=== PATIENT | female | born 1980 ===

== ENCOUNTER → 2023-10-11 12:53 | Outpatient (BNVA) | payer MEDICARE, SELFPAY | PROVIDERS: Visit Provider Physician Assistant Surgical ==

== ENCOUNTER 2023-11-29 09:28 | Outpatient (AMB) | payer MEDICARE, SELFPAY ==
--- OUTSIDE RECORDS SUMMARY | 2023-11-29 09:30 | XMS_ITS | Continuity of Care Document ---
Author Organization [facility] Address [address], [address] [place] [address]- Care Team Providers Care Electric Refrigerator Preparer Name Role Phone Jaciel WILSON, [place] Primary Care Physician [place] [facility] [place] Date(s): 02/02/22 - 03/04/22 [facility] [place] [facility] [address], [address] [place], [place] [address] Attending Physician: AdmScott diggs Admitting Physician: AdmScott diggs Referring Physician: [id number] Allergies, Adverse Reactions, Alerts Substance Reaction Severity Status Flovent chest pain Active Nuts anaphalaxis Active Immunizations Given and Recorded Vaccine Date Status Refusal Reason influenza virus vaccine, inactivated 1 09/25/21 Gi jennifer influenza virus vaccine, inactivated 04/14/09 Give n SARS-CoV-2 (COVID-19) mRNA BNT-162b2 vac 07/03/21 Recorded SARS-CoV-2 (COVID-19) mRNA-1273 vaccine 09/07/20 R ecorded SARS-CoV-2 (COVID-19) mRNA-1273 vaccine 08/10/20 R ecorded tetanus/diphtheria/pertussis, acel(Tdap) 02/18/17 Given influ virus vac, H1N1, inactive(oldterm) 2 05/06/09 Given Pneumococcal Poly (PPV23) (oldterm) 06/11/07 Given Tet/Diphth/Acel, Pertussis (oldterm) 3 12/25/06 Gi jennifer 1Result Comment: [facility]:[id number] 2Admin Note: Manufactured by: [employer] 3Admin Note: SANOFI PASTEUR Medications Albuterol (Eqv-ProAir HFA) 90 mcg/inh inhalation aerosol 2 puffs, Inhalation, Every 4 hours, PRN NEEDED FOR WHEEZING, # 8.5 Gm, 2 Refills, [facility] #[id number], 16, INHALE 2 PUFFS BY MOUTH EVERY 4 HOURS NEEDED FOR WHEEZING, 163, cm, 06/21/21 8:48:00 EST, Height, 109, kg, 02/01/21 19:07:00 EDT,... Start Date: 07/03/21 Status: Ordered albuterol 0.083% inhalation solution 3 mL = 2.5 mg, Inhalation, Every 6 hours, PRN for wheezing, # 60 each, 1 Refills, Maintenance, 02/26/22 9:27:00 EDT, Solution, [facility] #[id number], Partial fill upon patient request if the prescription is for a schedule II opioid drug., 162.56... Start Date: 02/26/22 Status: Ordered Breo Ellipta 100 mcg-25 mcg/inh inhalation powder 1 puffs, Inhalation, Daily, # 3 each, 3 Refills, 02/16/22 12:14:00 EDT, [facility] #[id number], no substitutuion - brand name necessary, 1 puffs Inhalation Daily, 162.56, cm, 02/02/22 15:09:00 EDT, Height, 112.1, kg, 02/02/22 15:11:00 EDT, Dry We... Start Date: 02/16/22 Status: Ordered cyclobenzaprine 5 mg oral tablet 1 tablet, By Mouth, 3 times a day, PRN NEEDED FOR LEG PAIN, for 14 days, # 42 tablet, 1 Refills,Physician Stop 03/16/22 12:15:00 EDT, 02/16/22 12:15:00 EDT, [facility] #[id number], 162.56, cm, 02/02/22 15:09:00 EDT, Height, 112.1, kg, ... Start Date: 02/16/22 Stop Date: 03/16/22 Status: Ordered EpiPen 2-Gage 0.3 mg injectable kit See Instructions, Intramuscular Once, # 1 pack/packet, 0 Refills, Soft Stop, 07/18/20 15:15:00 EST,[facility] #[id number], 165.5, cm, 05/19/20 10:10:00 EST, Height, 102.1, kg, 09/08/19 15:11:00EST, Dry Weight Start Date: 07/18/20 Status: Ordered escitalopram 10 mg oral tablet 1.5 tablet = 15 mg, By Mouth, Daily at bedtime, dose increase, # 45 tablet, 11 Refills, Maintenance, 11/06/21 15:12:00 EDT, [facility] #[id number], Partial fill upon patient request if the prescription is for a schedule II opioid drug., 162.56, c... Start Date: 11/06/21 Status: Ordered Excedrin By Mouth, Every 6 hours, 0 Refills, Maintenance, 05/19/20 10:13:00 EST Start Date: 05/19/20 Status: Ordered nabumetone 500 mg oral tablet 1 tablet = 500 mg, By Mouth, 2 times a day, as needed for antiinflammatory, # 28 tablet, 1 Refills,Maintenance, 02/16/22 12:16:00 EDT, Tablet, [facility] #[id number], 162.56, cm, 02/02/22 15:09:00 EDT, Height, 112.1, kg, 02/02/22 15:11:00 EDT, D... Start Date: 02/16/22 Stop Date: 03/16/22 Status: Ordered scopolamine 1 mg/72 hr transdermal film, extended release 1 film, Topically, Every 72 hours, # 4 each, 0 Refills, Acute 03/15/22 12:17:00 EDT, 02/16/22 12:17:00 EDT, [facility] #[id number], Partial fill upon patient request if the prescription is for aschedule II opioid drug., 1 film Topically Every 72... 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
--- OUTSIDE RECORDS SUMMARY | 2023-11-29 09:30 | XMS_ITS | Continuity of Care Document ---
Author Organization [facility] Adult Address Unknown Care Team Providers Care Promotions Executive Producer Name Role Phone [place] Grissom MD Primary Care Physician Encounter [facility] [place] Date(s): 05/10/21 - 06/09/21 [facility] Allergies, Adverse Reactions, Alerts Substance Reaction Severity Status Flovent Active Nuts anaphalaxis Active Immunizations Given and Recorded Vaccine Date Status Refusal Reason SARS-CoV-2 (COVID-19) mRNA-1273 vaccine 09/07/20 R ecorded SARS-CoV-2 (COVID-19) mRNA-1273 vaccine 08/10/20 R ecorded tetanus/diphtheria/pertussis, acel(Tdap) 02/18/17 Given influ virus vac, H1N1, inactive(oldterm) 1 05/06/09 Given influenza virus vaccine, inactivated 04/14/09 Give n Pneumococcal Poly (PPV23) (oldterm) 06/11/07 Given Tet/Diphth/Acel, Pertussis (oldterm) 2 12/25/06 Gi jennifer 1Admin Note: Manufactured by: [employer] 2Admin Note: SANOFI PASTEUR Medications albuterol 0.083% inhalation solution 3 mL, Inhalation, Every 6 hours, PRN as needed for wheezing, # 25 each, 5 Refills, Maintenance, 07/20/20 14:16:00 EST, [facility] #[id number], 165.5, cm, 07/19/20 18:29:00 EST, Height, 102.1, kg, 09/08/19 15:11:00 EST, Dry Weight Start Date: 07/20/20 Status: Ordered Breo Ellipta 100 mcg-25 mcg/inh inhalation powder 1 puffs, Inhalation, Daily, # 1 each, 11 Refills, Maintenance, 10/03/20 15:46:00 EDT, Powder, [facility] #[id number], 1 puffs Inhalation Daily, 165.5, cm, 09/20/20 13:58:00 EST, Height, 102.1, kg, 09/08/19 15:11:00 EST, Dry Weight Start Date: 10/03/20 Status: Ordered cyclobenzaprine 5 mg oral tablet 1 tablet, By Mouth, 3 times a day, PRN NEEDED FOR LEG PAIN, # 30 tablet, 1 Refills, Physician Stop 06/13/21 14:06:00 EST, 05/29/21 14:05:00 EST, [facility] #[id number], 163, cm, 05/18/21 10:53:00 EDT, Height, 109, kg, 02/01/21 19:07:00 EDT, . Start Date: 05/29/21 Stop Date: 06/13/21 Status: Ordered EpiPen 2-Gage 0.3 mg injectable kit See Instructions, Intramuscular Once, # 1 pack/packet, 0 Refills, Soft Stop, 07/18/20 15:15:00 EST,[facility] #[id number], 165.5, cm, 05/19/20 10:10:00 EST, Height, 102.1, kg, 09/08/19 15:11:00EST, Dry Weight Start Date: 07/18/20 Status: Ordered Excedrin By Mouth, Every 6 hours, 0 Refills, Maintenance, 05/19/20 10:13:00 EST Start Date: 05/19/20 Status: Ordered Physical Therapy Physical Therapy, See Instructions, # 12 each, Refills 0, Tot. Refills 0, Maintenance, eval lower back pain with sciatica, 05/10/21 16:51:00 EDT, Supply Start Date: 05/10/21 Status: Ordered ProAir HFA 90 mcg/inh inhalation aerosol with adapter 2, puffs, Inhalation, Every 4 hours, PRN, # 8.5 Gm, Refills 11, Tot. Refills 11, Maintenance, 03/30/20 16:16:00 EDT, Aerosol, Route to Pharmacy Electronically, [id number], [facility] #[id number], 165.5, cm, 09/08/19 15:0... 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
--- OUTSIDE RECORDS SUMMARY | 2023-11-29 09:30 | XMS_ITS | Continuity of Care Document ---
Author Organization [facility] Adult Address [address] [place] [address]- Care Team Providers Care Astrochemist Name Role Phone Jaciel WILSON, [place] Primary Care Physician [place] [facility] [place] Date(s): 03/04/23 - 04/03/23 [facility] [address] [place] [address]- Allergies, Adverse Reactions, Alerts Substance Reaction Severity Status Flovent chest pain Active Nuts anaphalaxis Active Immunizations Given and Recorded Vaccine Date Status Refusal Reason influenza virus vaccine, inactivated 07/02/22 Gustavo rded influenza virus vaccine, inactivated 1 09/25/21 Gi jennifer influenza virus vaccine, inactivated 04/14/09 Give n [id number] 12y+ bivalent booster vax 07/02/22 Recorded SARS-CoV-2 (COVID-19) mRNA BNT-162b2 vac 07/03/21 Recorded SARS-CoV-2 (COVID-19) mRNA-1273 vaccine 09/07/20 R ecorded SARS-CoV-2 (COVID-19) mRNA-1273 vaccine 08/10/20 R ecorded tetanus/diphtheria/pertussis, acel(Tdap) 02/18/17 Given influ virus vac, H1N1, inactive(oldterm) 2 05/06/09 Given Pneumococcal Poly (PPV23) (oldterm) 06/11/07 Given Tet/Diphth/Acel, Pertussis (oldterm) 3 12/25/06 Gi jennifer 1Result Comment: [facility]:[id number] 2Admin Note: Manufactured by: [employer] 3Admin Note: SANOFI PASTEUR Medications acetaminophen 325 mg oral tablet 650 mg, By Mouth, Every 6 hours, May take OTC not to exceed 3000 mg/day, Refills 0, Maintenance, 01/12/23 9:15:00 EDT, Partial fill upon patient request if the prescription is for a schedule II opioid drug. Start Date: 01/12/23 Status: Ordered Albuterol (Eqv-ProAir HFA) 90 mcg/inh inhalation aerosol 2 puffs, Inhalation, Every 4 hours, PRN NEEDED FOR WHEEZING, # 8.5 Gm, 5 Refills, 03/12/23 10:03:00 EDT, [facility] #[id number], 16, 2 puffs Inhalation Every 4 hours,PRN: NEEDED FOR WHEEZING, 162, cm, 01/13/23 7:02:00 EDT, Height, 115.9, kg,... Start Date: 03/12/23 Status: Ordered Aspirin Tablet 325 mg, By Mouth, 2 times a day, Refills 0, Maintenance, 01/12/23 9:15:00 EDT, Partial fill upon patient request if the prescription is for a schedule II opioid drug. Start Date: 01/12/23 Status: Ordered Breo Ellipta 100 mcg-25 mcg/inh inhalation powder 1 puffs, Inhalation, Daily, # 180 each, 3 Refills, Maintenance, 01/28/23 9:16:00 EDT, [facility] #[id number], 90, INHALE 1 PUFF BY MOUTH DAILY, 162, cm, 01/13/23 7:02:00 EDT, Height, 115.9, kg, 01/11/23 12:29:00 EDT, Dry Weight Start Date: 01/28/23 Status: Ordered Breo Ellipta 100 mcg-25 mcg/inh inhalation powder 1 puffs, Inhalation, Daily, # 3 each, 3 Refills, Maintenance, 03/22/23 13:52:00 EDT, [facility] #72911, 1 puffs Inhalation Daily, 162, cm, 01/13/23 7:02:00 EDT, Height, 115.9, kg, 01/11/23 12:29:00 EDT, Dry Weight Start Date: 03/22/23 Status: Ordered Colace Capsule 100 mg, 1, capsule, By Mouth, 2 times a day, Refills 0, Maintenance, 01/12/23 9:15:00 EDT, Partial fill upon patient request if the prescription is for a schedule II opioid drug. Start Date: 01/12/23 Status: Ordered cyclobenzaprine 5 mg oral tablet 1 tablet = 5 mg, By Mouth, PRN, 0 Refills, Maintenance, 09/26/22 14:00:00 EDT, Partial fill upon patient request if the prescription is for a schedule II opioid drug. Start Date: 09/26/22 Status: Ordered EpiPen 2-Gage 0.3 mg injectable kit See Instructions, Intramuscular Once, # 1 pack/packet, 0 Refills, Soft Stop, 07/18/20 15:15:00 EST,[facility] #[id number], 165.5, cm, 05/19/20 10:10:00 EST, Height, 102.1, kg, 09/08/19 15:11:00EST, Dry Weight Start Date: 07/18/20 Status: Ordered MiraLax Powder 1 pack/packet = 17 Gm, By Mouth, Daily, PRN Constipation, 0 Refills, Maintenance, 01/12/23 9:15:00 EDT, Powder, Partial fill upon patient request if the prescription is for a schedule II opioid drug. Start Date: 01/12/23 Status: Ordered pantoprazole 40 mg oral delayed release tablet = 40 mg, By Mouth, Daily, 0 Refills, Maintenance, 01/12/23 9:15:00 EDT, EC Tablet Start Date: 01/12/23 Status: Ordered senna 187 mg oral tablet 1 tablet = 8.6 mg, By Mouth, Daily at bedtime, PRN as needed for constipation, 0 Refills, Maintenance, 01/12/23 9:15:00 EDT, Tablet, Partial fill upon patient request if the prescription is for a schedule II opioid drug. Start Date: 01/12/23 Status: Ordered Problem List Condition Confirmation Course Effective Dates Status H ealth Status Informant ASTHMA Confirmed Active Morbid obesity with BMI of 40.0-44.9, adult Confirmed Active Urinary incontinence Confirmed Active FH: Diabetes mellitus 1 Confirmed Active Lateral femoral cutaneous entrapment syndrome Confirmed Active Obstructive sleep apnea Confirmed Active Osteoarthritis of left hip (candidate for THR) Confirmed Active Severe obesity Confirmed Active 1both parents Social History Social History Type Response Smoking Status Former smoker, quit more than 30 days ago entered on: 02/01/21 Sex Patient Care team information Care Team Personnel Name: [place] Grissom MD Position: S Physician - Primary Care Member Role: PCP Address: Address: [address] [place] [address]- Care Team Related Persons Name: ANTWON GARCIA Address: home [address] [place] [address]
--- OUTSIDE RECORDS SUMMARY | 2023-11-29 09:30 | XMS_ITS | Continuity of Care Document ---
Author Organization [facility] Address [address] [place] [address]- Care Team Providers Care Search Engineer Name Role Phone [place] Grissom MD Primary Care Physician Encounter [facility] [place] Date(s): 07/19/20 - 08/18/20 [facility] [address] [place] [address]- Attending Physician: Scott Murcia Admitting Physician: Scott Murcia Referring Physician: AdmtrScott Allergies, Adverse Reactions, Alerts Substance Reaction Severity Status Flovent Active Nuts anaphalaxis Active Immunizations Given and Recorded Vaccine Date Status Refusal Reason tetanus/diphtheria/pertussis, acel(Tdap) 02/18/17 Given influ virus vac, H1N1, inactive(oldterm) 1 05/06/09 Given influenza virus vaccine, inactivated 04/14/09 Give n Pneumococcal Poly (PPV23) (oldterm) 06/11/07 Given Tet/Diphth/Acel, Pertussis (oldterm) 2 12/25/06 Gi jennifer 1Admin Note: Manufactured by: [employer] 2Admin Note: SANOFI PASTEUR Medications albuterol 0.083% inhalation solution 3 mL, Inhalation, Every 6 hours, PRN as needed for wheezing, # 25 each, 5 Refills, Maintenance, 07/20/20 14:16:00 EST, [facility] #[id number], 165.5, cm, 07/19/20 18:29:00 EST, Height, 102.1, kg, 09/08/19 15:11:00 EST, Dry Weight Start Date: 07/20/20 Status: Ordered Breo Ellipta 100 mcg-25 mcg/inh inhalation powder 1 puffs, Inhalation, Daily, # 1 each, 11 Refills, Maintenance, 09/25/19 15:00:00 EDT, Powder, [facility] #[id number], 1 puffs Inhalation Daily, 165.5, cm, 09/08/19 15:08:00 EST, Height, 102.1, kg, 09/08/19 15:11:00 EST, Dry Weight Start Date: 09/25/19 Status: Ordered cyclobenzaprine 5 mg oral tablet 1 tablet = 5 mg, By Mouth, 3 times a day, PRN Other, PRN for leg pain, # 30 tablet, 5 Refills, Maintenance, 03/30/20 16:16:00 EDT, [facility] #11754, 165.5, cm, 09/08/19 15:08:00 EST, Height, 102.1, kg, 09/08/19 15:11:00 EST, Dry Weight Start Date: 03/30/20 Status: Ordered EpiPen 2-Gage 0.3 mg injectable kit See Instructions, Intramuscular Once, # 1 pack/packet, 0 Refills, Soft Stop, 07/18/20 15:15:00 EST,[facility] #[id number], 165.5, cm, 05/19/20 10:10:00 EST, Height, 102.1, kg, 09/08/19 15:11:00EST, Dry Weight Start Date: 07/18/20 Status: Ordered Excedrin By Mouth, Every 6 hours, 0 Refills, Maintenance, 05/19/20 10:13:00 EST Start Date: 05/19/20 Status: Ordered Mirena 52 mg intrauteral device 1 each = 52 mg, Vaginally, Once, # 1 each, 0 Refills, Soft Stop, 11/19/13 16:16:54, 1 each Vaginally Once Start Date: 11/19/13 Status: Ordered ProAir HFA 90 mcg/inh inhalation aerosol with adapter 2, puffs, Inhalation, Every 4 hours, PRN, # 8.5 Gm, Refills 11, Tot. Refills 11, Maintenance, 03/30/20 16:16:00 EDT, Aerosol, Route to Pharmacy Electronically, [id number], [facility] #[id number], 165.5, cm, 09/08/19 15:0... Start Date: 03/30/20 Status: Ordered scopolamine 1.5 mg transdermal film, extended release 1 patch, Topically, Every 72 hours, PRN for motion sickness, # 4 each, 1 Refills, Maintenance, 11/21/18 8:46:33 EDT, Patch Start Date: 11/21/18 Status: Ordered traZODone 50 mg oral tablet 50 mg, 1, tablet, By Mouth, Daily at bedtime, # 30 tablet, Refills 11, Tot. 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
--- OUTSIDE RECORDS SUMMARY | 2023-11-29 09:30 | XMS_ITS | Continuity of Care Document ---
Author Organization [facility] ter Address [address] [place] [address]- Care Team Providers Care Paintings Restorer Name Role Phone [place] Grissom MD Primary Care Physician [phone] Encounter [facility] [place] Date(s): 01/11/23 - 02/10/[address] [address]- Attending Physician: Not on Staff, Attending MD Admitting Physician: Not on Staff, Admitting MD Referring Physician: Not on Staff, Referring MD Allergies, Adverse Reactions, Alerts Substance Reaction Severity Status Flovent chest pain Active Nuts anaphalaxis Active Immunizations Given and Recorded Vaccine Date Status Refusal Reason influenza virus vaccine, inactivated 07/02/22 Gustavo rded influenza virus vaccine, inactivated 1 09/25/21 Gi jennifer influenza virus vaccine, inactivated 04/14/09 Give n [id number] 12y+ bivalent booster vax 07/02/22 Recorded SARS-CoV-2 (COVID-19) mRNA BNT-162b2 vac 07/03/21 Recorded SARS-CoV-2 (COVID-19) mRNA-1273 vaccine 09/07/20 R ecorded SARS-CoV-2 (COVID-19) mRNA-1273 vaccine 08/10/20 R ecorded tetanus/diphtheria/pertussis, acel(Tdap) 02/18/17 Given influ virus vac, H1N1, inactive(oldterm) 2 05/06/09 Given Pneumococcal Poly (PPV23) (oldterm) 06/11/07 Given Tet/Diphth/Acel, Pertussis (oldterm) 3 12/25/06 Gi jennifer 1Result Comment: [facility]:[id number] 2Admin Note: Manufactured by: [employer]. 3Admin Note: SANOFI PASTEUR Medications acetaminophen 325 [...] FOR WHEEZING, # 8.5 Gm, 5 Refills, 12/25/22 6:12:00 EDT, [facility] #[id number], 16, 2 puffs Inhalation Every 4 hours,PRN: NEEDED FOR WHEEZING, 162.56, cm, 09/26/22 13:58:00 EDT, Height, 112.1,... Start Date: 12/25/22 Status: Ordered Aspirin Tablet 325 mg, By Mouth, 2 times a day, Refills 0, Maintenance, 01/12/23 9:15:00 EDT, Partial fill upon patient request if the prescription is for a schedule II opioid drug. Start Date: 01/12/23 Status: Ordered Breo Ellipta 100 mcg-25 mcg/inh inhalation powder 1 puffs, Inhalation, Daily, # 180 each, 3 Refills, Maintenance, 01/28/23 9:16:00 EDT, [facility] #[id number], 90, INHALE 1 PUFF BY MOUTH DAILY, 162, cm, 01/13/23 7:02:00 EDT, Height, 115.9, kg, 01/11/23 12:29:00 EDT, Dry Weight Start Date: 01/28/23 Status: Ordered Breo Ellipta 100 mcg-25 mcg/inh inhalation powder 1 puffs, Inhalation, Daily, # 180 each, 3 Refills, Maintenance, 01/28/23 9:16:00 EDT, [facility] #[id number], 90, INHALE 1 PUFF BY MOUTH DAILY, 162, cm, 01/13/23 7:02:00 EDT, Height, 115.9, kg, 01/11/23 12:29:00 EDT, Dry Weight Start Date: 01/28/23 Status: Ordered Colace Capsule 100 mg, 1, [...] pack/packet, 0 Refills, Soft Stop, 07/18/20 15:15:00 EST,[facility] #[id number], 165.5, cm, 05/19/20 10:10:00 EST, Height, 102.1, [...] Team Personnel Name: [place] Grissom MD Position: [facility] Physician - Primary Care Member Role: PCP Address: Address: [address] [place] [address]- Care Team Related Persons Name: ANTWON GARCIA Address: [address] [place] [address]
--- OUTSIDE RECORDS SUMMARY | 2023-11-29 09:30 | XMS_ITS | Continuity of Care Document ---
Author Organization [facility] Address [address] [place] [address]- Care Team Providers Care Automatic Toe Laster Name Role Phone [place] Grissom MD Primary Care Physician [phone] Encounter [facility] Date(s): 12/11/22 - 01/10/23 [facility] [address] [place], [place] [address] Attending Physician: Scott Murcia Admitting Physician: Scott Murcia Referring Physician: AdmtrScott Allergies, Adverse Reactions, Alerts Substance Reaction Severity Status Flovent chest pain Active Nuts anaphalaxis Active Immunizations Given and Recorded Vaccine Date Status Refusal Reason influenza virus vaccine, inactivated 07/02/22 Gustavo rded influenza virus vaccine, inactivated 1 09/25/21 Gi jennifer influenza virus vaccine, inactivated 04/14/09 Give n [id number] 12y+ bivalent booster vax 07/02/22 Recorded SARS-CoV-2 (COVID-19) mRNA BNT-162b2 vac 07/03/21 Recorded SARS-CoV-2 (COVID-19) mRNA-1273 vaccine 09/07/20 R ecorded SARS-CoV-2 (COVID-19) mRNA-1273 vaccine 08/10/20 R ecorded tetanus/diphtheria/pertussis, acel(Tdap) 02/18/17 Given influ virus vac, H1N1, inactive(oldterm) 2 05/06/09 Given Pneumococcal Poly (PPV23) (oldterm) 06/11/07 Given Tet/Diphth/Acel, Pertussis (oldterm) 3 12/25/06 Gi jennifer 1Result Comment: [facility]:[id number] 2Admin Note: Manufactured by: [employer] 3Admin Note: SANOFI PASTEUR Medications Albuterol (Eqv-ProAir HFA) 90 mcg/inh inhalation aerosol 2 puffs, Inhalation, Every 4 hours, PRN NEEDED FOR WHEEZING, # 8.5 Gm, 5 Refills, 12/25/22 6:12:00 EDT, [facility] #[id number], 16, 2 puffs Inhalation Every 4 hours,PRN: NEEDED FOR WHEEZING, 162.56, cm, 09/26/22 13:58:00 EDT, Height, 112.1,... Start Date: 12/25/22 Status: Ordered Breo Ellipta 100 mcg-25 mcg/inh inhalation powder 1 puffs, Inhalation, Daily, # 3 each, 3 Refills, 02/16/22 12:14:00 EDT, [facility] #[id number], no substitutuion - brand name necessary, 1 [...] pack/packet, 0 Refills, Soft Stop, 07/18/20 15:15:00 EST,[facility] #14612, 165.5, cm, 05/19/20 10:10:00 EST, Height, 102.1, kg, 09/08/19 15:11:00EST, Dry Weight Start Date: 07/18/20 Status: Ordered Vitamin B12 0 Refills, Maintenance, 02/18/17 8:54:57 Start Date: 02/18/17 Status: Ordered Problem List Condition Confirmation Course [...] Primary Care Member Role: PCP Address: Address: [address] [place] [address]- Care Team Related Persons Name: ANTWON GARCIA Address: home [address] [place] [address]
--- OUTSIDE RECORDS SUMMARY | 2023-11-29 09:30 | XMS_ITS | Continuity of Care Document ---
Author Organization [facility] Address Unknown Care Team Providers Care Manager Transition Name Role Phone Boston Grissom MD Primary Care Physician Encounter [facility] [place] Date(s): 11/21/21 - 12/21/21 [facility] Allergies, Adverse Reactions, Alerts Substance Reaction [...] (oldterm) 3 12/25/06 Gi jennifer 1Result Comment: [facility]:[id number] 2Admin Note: Manufactured by: [employer] 3Admin Note: SANOFI PASTEUR Medications Albuterol (Eqv-ProAir HFA) 90 mcg/inh inhalation aerosol 2 puffs, Inhalation, Every 4 hours, PRN NEEDED FOR WHEEZING, # 8.5 Gm, 2 Refills, [facility] #[id number], 16, INHALE 2 PUFFS BY MOUTH EVERY 4 HOURS NEEDED FOR WHEEZING, 163, cm, 06/21/21 8:48:00 EST, Height, 109, kg, 02/01/21 19:07:00 EDT,... Start Date: 07/03/21 Status: Ordered Bactrim DS 800 mg-160 mg oral tablet 1 tablet, By Mouth, 2 times a day, for 3 days, # 6 each, 0 Refills, Acute 12/24/21 8:54:00 EDT, 12/21/21 8:54:00 EDT, Tablet, [facility] #[id number], Partial fill upon patient request if the prescription is for a schedule II opioid drug., 1 table... Start Date: 12/21/21 Stop Date: 12/24/21 Status: Ordered Breo Ellipta 100 mcg-25 mcg/inh inhalation powder 1 puffs, Inhalation, Daily, # 3 each, 2 Refills, 10/20/21 9:30:00 EDT, [facility] #[id number],1 puffs Inhalation Daily, 162.56, cm, 10/09/21 13:19:00 EDT, Height, 109.5, kg, 10/03/21 13:50:00 EDT, Dry Weight Start Date: 10/20/21 Status: Ordered EpiPen 2-Gage 0.3 mg injectable kit See Instructions, Intramuscular Once, # 1 pack/packet, 0 Refills, Soft Stop, 07/18/20 15:15:00 EST,[facility] #[id number], 165.5, cm, 05/19/20 10:10:00 EST, Height, 102.1, kg, 09/08/19 15:11:00EST, Dry Weight Start Date: 07/18/20 Status: Ordered escitalopram 10 mg oral tablet 1.5 tablet = 15 mg, By Mouth, Daily at bedtime, dose increase, # 45 tablet, 11 Refills, Maintenance, 11/06/21 15:12:00 EDT, [facility] #[id number], Partial fill upon patient request if the prescription is for a schedule II opioid drug., 162.56, c... Start Date: 11/06/21 Status: Ordered Excedrin By Mouth, Every 6 hours, 0 Refills, Maintenance, 05/19/20 10:13:00 EST Start Date: 05/19/20 Status: Ordered Vitamin B12 0 Refills, Maintenance, [...]
--- OUTSIDE RECORDS SUMMARY | 2023-11-29 09:30 | XMS_ITS | Continuity of Care Document ---
Author Organization [facility] Address [address] [place] [address]- Care Team Providers Care Pharmaceutical Physician Name Role Phone Boston Grissom MD Primary Care Physician [phone] [place] [facility] [place]): [place] 08/27/[address] [facility] [address] [place] [address]- Encounter Diagnosis Trochanteric bursitis of left hip(Discharge Diagnosis) - 08/20/22 Attending Physician: Boston Grissom MD Allergies, Adverse Reactions, Alerts Substance Reaction [...] (oldterm) 3 12/25/06 Gi jennifer 1Result Comment: [facility]:[id number] 2Admin Note: Manufactured by: [employer] 3Admin Note: SANOFI PASTEUR Medications Albuterol (Eqv-ProAir HFA) 90 mcg/inh inhalation aerosol 2 puffs, Inhalation, Every 4 hours, PRN NEEDED FOR WHEEZING, # 8.5 Gm, 5 Refills, 04/25/22 9:56:00 EDT, [facility] #[id number], 16, 2 puffs Inhalation Every 4 hours,PRN: NEEDED FOR WHEEZING, 162.56, cm, 04/19/22 9:56:00 EDT, Height, 112.1, k... Start Date: 04/25/22 Status: Ordered albuterol 0.083% inhalation solution 3 mL = 2.5 mg, Inhalation, Every 6 hours, PRN for wheezing, # 60 each, 1 Refills, Maintenance, 02/26/22 9:27:00 EDT, Solution, [facility] #[id number], Partial fill upon patient request if the prescription is for a schedule II opioid drug., 162.56... Start Date: 02/26/22 Status: Ordered Breo Ellipta 100 mcg-25 mcg/inh inhalation powder 1 puffs, Inhalation, Daily, # 3 each, 3 Refills, 02/16/22 12:14:00 EDT, [facility] #[id number], no substitutuion - brand name necessary, 1 puffs Inhalation Daily, 162.56, cm, 02/02/22 15:09:00 EDT, Height, 112.1, kg, 02/02/22 15:11:00 EDT, Dry We... Start Date: 02/16/22 Status: Ordered EpiPen 2-Gage 0.3 mg injectable kit See Instructions, Intramuscular Once, # 1 pack/packet, 0 Refills, Soft Stop, 07/18/20 15:15:00 EST[facility] #[id number], 165.5, cm, 05/19/20 10:10:00 EST, Height, 102.1, kg, 09/08/19 15:11:00EST, Dry Weight Start Date: 07/18/20 Status: Ordered escitalopram 10 mg oral tablet 1.5 tablet = 15 mg, By Mouth, Daily at bedtime, dose increase, # 45 tablet, 11 Refills, Maintenance, 11/06/21 15:12:00 EDT, [facility] #[id number], Partial fill upon patient request if the [...] tablet, 1 Refills,Maintenance, 02/16/22 12:16:00 EDT, Tablet[id number], 162.56, cm, 02/02/22 15:09:00 EDT, Height, 112.1, kg, 02/02/22 15:11:00 EDT, D... 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 Obstructive sleep apnea Confirmed Active Severe obesity Confirmed Active 1both parents Diagnosis Diagnosis Type Effective Dates Health Status Clinical Service Informant Trochanteric bursitis of left hip Discharge Diagnosis 08/20/22 Social History Social History Type Response Smoking Status Former smoker, quit more than 30 days ago entered on: 02/01/21 Sex Patient Care team information Care Team Personnel Name: Boston Grissom MD Position: [facility] Primary Care Physician Member Role: PCP Address: Address: [address] [place] [address]- Care Team Related Persons Name: ANTWON GARCIA Address: home [address] [place] [address]
--- OUTSIDE RECORDS SUMMARY | 2023-11-29 09:30 | XMS_ITS | Continuity of Care Document ---
Author Organization [facility] Address [address] [place] [address]- Care Team Providers Care Marble Mechanic Helper Name Role Phone Jaciel WILSON, [place] Primary Care Physician Encounter [facility] [place] Date(s): 03/04/23 - 04/03/23 [facility] [address] [place] [address]- Allergies, Adverse Reactions, Alerts Substance Reaction Severity Status Flovent chest pain Active Nuts anaphalaxis Active Immunizations Given and Recorded Vaccine Date Status Refusal Reason influenza virus vaccine, inactivated 07/02/22 Gustavo rded influenza virus vaccine, inactivated 1 09/25/21 Gi jennifer influenza virus vaccine, inactivated 04/14/09 Give n [id number] 12y+ bivalent booster vax 07/02/22 Recorded SARS-CoV-2 (COVID-19) mRNA BNT-162b2 vac 07/03/21 Recorded SARS-CoV-2 (COVID-19) mRNA-1273 vaccine 09/07/20 R ecorded SARS-CoV-2 (COVID-19) mRNA-1273 vaccine 08/10/20 R ecorded tetanus/diphtheria/pertussis, acel(Tdap) 02/18/17 Given influ virus vac, H1N1, inactive(oldterm) 2 05/06/09 Given Pneumococcal Poly (PPV23) (oldterm) 06/11/07 Given Tet/Diphth/Acel, Pertussis (oldterm) 3 12/25/06 Gi jennifer 1Result Comment: [facility]:[id number] 2Admin Note: Manufactured by: [employer] 3Admin Note: SANOFI PASTEUR Medications acetaminophen [...] 8.5 Gm, 5 Refills, 03/12/23 10:03:00 EDT, [facility] #[id number], 16, 2 puffs Inhalation Every 4 hours,PRN: [...] each, 3 Refills, Maintenance, 01/28/23 9:16:00 EDT, [facility] #[id number], 90, INHALE 1 PUFF BY MOUTH DAILY, 162, cm, 01/13/23 7:02:00 EDT, Height, 115.9, kg, 01/11/23 12:29:00 EDT, Dry Weight Start Date: 01/28/23 Status: Ordered Breo Ellipta 100 mcg-25 mcg/inh inhalation powder 1 puffs, Inhalation, Daily, # 3 each, 3 Refills, Maintenance, 03/22/23 13:52:00 EDT, [facility] #[id number], 1 puffs Inhalation Daily, 162, cm, 01/13/23 [...] pack/packet, 0 Refills, Soft Stop, 07/18/20 15:15:00 EST,[facility] #[id number], 165.5, cm, 05/19/20 10:10:00 EST, Height, 102.1, [...] Primary Care Member Role: PCP Address: Address: [address] [place] [address]- Care Team Related Persons Name: ANTWON GARCIA Address: [address] [place] [address]
--- OUTSIDE RECORDS SUMMARY | 2023-11-29 09:30 | XMS_ITS | Continuity of Care Document ---
Author Organization [facility] Address [address] [place] [address]- Care Team Providers Care Account Manager Education Name Role Phone Boston Grissom MD Primary Care Physician Encounter 01/14/23 - 01/18/23 [facility] [address] [place] [address]- Discharge Disposition: [facility] Allergies, Adverse Reactions, Alerts Substance Reaction Severity Status Flovent chest pain Active Nuts anaphalaxis Active Immunizations Given and Recorded Vaccine Date Status Refusal Reason influenza virus vaccine, inactivated 07/02/22 Gustavo rded influenza virus vaccine, inactivated 1 09/25/21 Gi jennifer influenza virus vaccine, inactivated 04/14/09 Give n [id number] 12y+ bivalent booster vax 07/02/22 Recorded SARS-CoV-2 (COVID-19) mRNA BNT-162b2 vac 07/03/21 Recorded SARS-CoV-2 (COVID-19) mRNA-1273 vaccine 09/07/20 R ecorded SARS-CoV-2 (COVID-19) mRNA-1273 vaccine 08/10/20 R ecorded tetanus/diphtheria/pertussis, acel(Tdap) 02/18/17 Given influ virus vac, H1N1, inactive(oldterm) 2 05/06/09 Given Pneumococcal Poly (PPV23) (oldterm) 06/11/07 Given Tet/Diphth/Acel, Pertussis (oldterm) 3 12/25/06 Gi jennifer 1Result Comment: [facility]:89750-510-15 2Admin Note: Manufactured by: [employer] 3Admin Note: SANOFI PASTEUR Medications acetaminophen [...] 8.5 Gm, 5 Refills, 12/25/22 6:12:00 EDT, [facility] #[id number], 16, 2 puffs Inhalation Every 4 hours,PRN: [...] 3 each, 3 Refills, 02/16/22 12:14:00 EDT, [facility] #[id number], no substitutuion - brand name necessary, 1 puffs Inhalation Daily, 162.56, cm, 02/02/22 15:09:00 EDT, Height, 112.1, kg, 02/02/22 15:11:00 EDT, Dry We... Start Date: 02/16/22 Status: Ordered Colace Capsule 100 mg, 1, [...] pack/packet, 0 Refills, Soft Stop, 07/18/20 15:15:00 EST[id number], 165.5, cm, 05/19/20 10:10:00 EST, Height, 102.1, kg, 09/08/19 15:11:00EST, Dry Weight Start Date: 07/18/20 Status: Ordered MiraLax Powder 1 pack/packet = 17 Gm, By Mouth, Daily, PRN Constipation, 0 Refills, Maintenance, 01/12/23 9:15:00 EDT, Powder, Partial fill upon patient request if the prescription is for a schedule II opioid drug. Start Date: 01/12/23 Status: Ordered oxyCODONE 5 mg oral tablet See Instructions, PRN, Take 1-2 tablets By Mouth Every 4 hours, # 84 tablet, Refills 0, Tot. Refills 0, Acute 01/19/23 8:55:00 EDT, Pain , Severe, 01/12/23 8:55:00 EDT, Instructions Replace Required Details, Route to Pharmacy Electronically, [facility]... Start Date: 01/12/23 Stop Date: 01/19/23 Status: Ordered pantoprazole 40 mg oral delayed [...] opioid drug. Start Date: 01/12/23 Status: Ordered traMADol 50 mg oral tablet See Instructions, PRN Pain , Mild, Take 1-2 tablets By Mouth Every 6 hours not to exceed 400 mg/day, # 56 tablet, 0 Refills, Acute 01/19/23 8:55:00 EDT, 01/12/23 8:54:00 EDT, Tablet, [facility], Partial fill upon patient request if th... Start Date: 01/12/23 Stop Date: 01/19/23 Status: Ordered Problem List Condition Confirmation Course [...] Team Personnel Name: Boston Grissom MD Position: [facility] Physician - Primary Care Member Role: PCP Address: Address: [address] [place] [address]- Care Team Related Persons Name: ANTWON GARCIA Address: home [address] [place] [address]
--- OUTSIDE RECORDS SUMMARY | 2023-11-29 09:30 | XMS_ITS | Continuity of Care Document ---
Author Organization [facility] Adult Address Unknown Care Team Providers Care Apprentice Plant Attendant Name Role Phone Boston Grissom MD Primary Care Physician [phone] Encounter [facility] [place] Date(s): 09/25/21 - 10/02/21 [facility] Encounter Diagnosis Annual physical exam(Discharge Diagnosis) - 09/27/21 ASTHMA(Discharge Diagnosis) - 09/27/21 Severe obesity(Discharge Diagnosis) - 09/27/21 Attending Physician: Boston Grissom MD Allergies, Adverse [...] (oldterm) 3 12/25/06 Gi jennifer 1Result Comment: [facility]:[id number] 2Admin Note: Manufactured by: [employer] 3Admin Note: SANOFI PASTEUR Medications Albuterol (Eqv-ProAir HFA) 90 mcg/inh inhalation aerosol 2 puffs, Inhalation, Every 4 hours, PRN NEEDED FOR WHEEZING, # 8.5 Gm, 2 Refills, [facility] #[id number], 16, INHALE 2 PUFFS BY MOUTH EVERY 4 HOURS NEEDED FOR WHEEZING, 163, cm, 06/21/21 8:48:00 EST, Height, 109, kg, 02/01/21 19:07:00 EDT,... Start Date: 07/03/21 Status: Ordered Breo Ellipta 100 mcg-25 mcg/inh inhalation powder 1 puffs, Inhalation, Daily, # 1 each, 11 Refills, Maintenance, 10/03/20 15:46:00 EDT, Powder, [facility] #[id number], 1 puffs Inhalation Daily, 165.5, cm, 09/20/20 13:58:00 EST, Height, 102.1, kg, 09/08/19 15:11:00 EST, Dry Weight Start Date: 10/03/20 Status: Ordered EpiPen 2-Gage 0.3 mg injectable kit See Instructions, Intramuscular Once, # 1 pack/packet, 0 Refills, Soft Stop, 07/18/20 15:15:00 EST,[facility] #[id number], 165.5, cm, 05/19/20 10:10:00 EST, Height, 102.1, kg, 09/08/19 15:11:00EST, Dry Weight Start Date: 07/18/20 Status: Ordered escitalopram 10 mg oral tablet 1 tablet = 10 mg, By Mouth, Daily at bedtime, # 30 tablet, 11 Refills, Maintenance, 09/25/21 14:47:00 EDT, [facility] #[id number], Partial fill upon patient request if the prescription is for a schedule II opioid drug., 163, cm, 09/25/21 14:10:00... Start Date: 09/25/21 Status: Ordered Excedrin By Mouth, Every 6 hours, 0 Refills, Maintenance, 05/19/20 10:13:00 EST Start Date: 05/19/20 Status: Ordered NuLYTELY with Flavor Packs oral powder for reconstitution 240 mL, By Mouth, Every 10 minutes, # 1 each, 0 Refills, Maintenance, 10/02/21 11:08:00 EDT, REC Powder, [facility] #[id number], Partial fill upon patient request if the prescription is for a schedule II opioid drug., 240 mL By Mouth Every 10 min... Start Date: 10/02/21 Status: Ordered Physical Therapy Physical Therapy, See Instructions, # 12 each, Refills 0, Tot. Refills 0, Maintenance, eval lower back pain with sciatica, 05/10/21 16:51:00 EDT, Supply Start Date: 05/10/21 Status: Ordered Plenvu oral powder for reconstitution See Instructions, Complete on day before the procedure per instructions, # 1,000 mL, 0 Refills, Maintenance, 08/25/21 15:50:00 EST, [facility] #[id number], Partial fill upon patient request if the prescription is for a schedule II opioid drug., C... Start Date: 08/25/21 Status: Ordered Vitamin B12 0 Refills, Maintenance, 02/18/17 8:54:57 Start Date: 02/18/17 Status: Ordered Problem List Condition Effective Dates Status Health Status Inform ant ASTHMA(Confirmed) Active Morbid obesity with BMI of 4 0.0-44.9, adult(Confirmed) Active Urinary incontinence(Confirmed) Active FH: Diabetes mellitus(Confirmed) 1 Active Lateral femoral cutaneous en trapment syndrome(Confirmed) Active Obstructive sleep apnea(Confirmed) Active Severe obesity(Confirmed) Active 1both parents Diagnosis Diagnosis Type Effective Dates Health Status Cl inical Service Informant Annual physical exam Discharge Diagnosis 09/27/21 ASTHMA Discharge Diagnosis 09/27/21 Severe obesity Discharge Diagnosis 09/27/21 Vital Signs Most recent to oldest [Reference Range]: 1 Height 163 cm (09/25/21 2:10 PM) Weight 108.8 kg (09/25/21 2:10 PM) Oxygen Saturation [94-100 %] 97 % (09/25/21 2:10 PM) Pulse Rate [55-90 bpm] 83 bpm (09/25/21 2:10 PM) Body Mass Index [18.5-24.99] 40.95 *>HHI* (09/25/21 2:10 PM) Blood Pressure [90-138/55-84 mm Hg] 116/ 68mm Hg (09/25/21 2:10 PM) Blood pressure sites Arm, left (09/25/21 2:10 PM) Social History Social History Type Response Smoking Status Former smoker, quit more than 30 days ago entered on: 02/01/21 Sex
--- OUTSIDE RECORDS SUMMARY | 2023-11-29 09:30 | XMS_ITS | Continuity of Care Document ---
Author Organization [facility] Address [address] [place] [address]- Care Team Providers Care Necktie Centralizing Machine Operator Name Role Phone Boston Grissom MD Primary Care Physician [phone] Encounter [facility] [place] Date(s): 07/03/23 - 08/02/23 [facility] [address] [place] [address]- Attending Physician: Alexis Michele Referring Physician: Boston Grissom MD Allergies, Adverse Reactions, Alerts Substance Reaction Severity Status Flovent chest pain Active Nuts anaphalaxis Active Immunizations Given and Recorded Vaccine Date Status Refusal Reason influenza virus vaccine, inactivated 07/02/22 Gustavo rded influenza virus vaccine, inactivated 1 09/25/21 Gi jennifer influenza virus vaccine, inactivated 04/14/09 Give n [id number] 12y+ bivalent booster vax 07/02/22 Recorded SARS-CoV-2 (COVID-19) mRNA BNT-162b2 vac 07/03/21 Recorded SARS-CoV-2 (COVID-19) mRNA-1273 vaccine 09/07/20 R ecorded SARS-CoV-2 (COVID-19) mRNA-1273 vaccine 08/10/20 R ecorded tetanus/diphtheria/pertussis, acel(Tdap) 02/18/17 Given influ virus vac, H1N1, inactive(oldterm) 2 05/06/09 Given Pneumococcal Poly (PPV23) (oldterm) 06/11/07 Given Tet/Diphth/Acel, Pertussis (oldterm) 3 12/25/06 Gi jennifer 1Result Comment: [facility]:[id number] 2Admin Note: Manufactured by: [employer]. 3Admin Note: SANOFI PASTEUR Medications acetaminophen 325 [...] 8.5 Gm, 5 Refills, 03/12/23 10:03:00 EDT, [facility] #[id number], 16, 2 puffs Inhalation Every 4 hours,PRN: NEEDED FOR WHEEZING, 162, cm, 01/13/23 7:02:00 EDT, Height, 115.9, kg,... Start Date: 03/12/23 Status: Ordered Aspirin Tablet 325 mg, By Mouth, 2 times a day, Refills 0, Maintenance, 01/12/23 9:15:00 EDT, Partial fill upon patient request if the prescription is for a schedule II opioid drug. Start Date: 01/12/23 Status: Ordered benzonatate 100 mg oral capsule See Instructions, PRN Cough, 1-2 capsule(s) By Mouth up to 3 times a day, # 40 capsule, 0 Refills, Maintenance, 07/10/23 16:07:00 EST, Capsule, [facility] #[id number], Partial fill upon patient request if the prescription is for a schedule II opi... Start Date: 07/10/23 Status: Ordered Breo Ellipta 100 mcg-25 mcg/inh inhalation powder 1 puffs, Inhalation, Daily, # 3 each, 3 Refills, Maintenance, 03/22/23 13:52:00 EDT, [facility] #[id number], 1 puffs Inhalation Daily, 162, cm, 01/13/23 7:02:00 EDT, Height, 115.9, kg, 01/11/23 12:29:00 EDT, Dry Weight Start Date: 03/22/23 Status: Ordered Breo Ellipta 100 mcg-25 mcg/inh inhalation powder 1 puffs, Inhalation, Daily, # 180 each, 3 Refills, Maintenance, 07/18/23 18:06:00 EST, [facility], 90, Brand name medically necessary - no substitutions, 1 puffs Inhalation Daily, 163, cm, 07/10/23 15:31:00 EST, Height, 127.5, kg, 12... Start Date: 07/18/23 Status: Ordered budesonide-formoterol 160 mcg-4.5 mcg/inh inhalation aerosol with adapter 2, puffs, Inhalation, 2 times a day, to replace Breo, # 1 each, Refills 11, Tot. Refills 11, Maintenance, 07/17/23 8:19:00 EST, Route to Pharmacy Electronically, [id number],[facility] #[id number], 163, cm, 07/10/23 15:3... Start Date: 07/17/23 Status: Ordered Colace Capsule 100 mg, 1, [...] pack/packet, 0 Refills, Soft Stop, 07/18/20 15:15:00 EST,[facility] #[id number], 165.5, cm, 05/19/20 10:10:00 EST, Height, 102.1, [...] Team Personnel Name: Boston Grissom MD Position: [facility] Physician - Primary Care Member Role: PCP Address: Address: [address] [place] [address]- Care Team Related Persons Name: ANTWON GARCIA Address: home [address] [place] [address]
--- OUTSIDE RECORDS SUMMARY | 2023-11-29 09:30 | XMS_ITS | Continuity of Care Document ---
Author Organization [facility] Address Unknown Care Team Providers Care Drier Feeder Name Role Phone Boston Grissom MD Primary Care Physician [place] [facility] [place]27[place] 12[place]04/[place] [facility] En[place] Diagnosis Suspected COVID-19 virus infection(Discharge Diagnosis) - 11/27/21 Attending Physician: Alfonso Noel MD Allergies, Adverse Reactions, Alerts Substance Reaction [...] 3 12/25/06 Gi jennifer 1Result Comment: [facility]:22261-351-12 2Admin Note: Manufactured by: [employer] 3Admin Note: SANOFI PASTEUR Medications Albuterol (Eqv-ProAir HFA) 90 mcg/inh inhalation aerosol 2 puffs, Inhalation, Every 4 hours, PRN NEEDED FOR WHEEZING, # 8.5 Gm, 2 Refills, [facility] #[id number], 16, INHALE 2 PUFFS BY MOUTH EVERY 4 HOURS NEEDED FOR WHEEZING, 163, cm, 06/21/21 8:48:00 EST, Height, 109, kg, 02/01/21 19:07:00 EDT,... Start Date: 07/03/21 Status: Ordered Breo Ellipta 100 mcg-25 mcg/inh inhalation powder 1 puffs, Inhalation, Daily, # 3 each, 2 Refills, 10/20/21 9:30:00 EDT, [facility] #[id number],1 puffs Inhalation Daily, 162.56, cm, 10/09/21 13:19:00 EDT, Height, 109.5, kg, 10/03/21 13:50:00 EDT, Dry Weight Start Date: 10/20/21 Status: Ordered EpiPen 2-Gage 0.3 mg injectable kit See Instructions, Intramuscular Once, # 1 pack/packet, 0 Refills, Soft Stop, 07/18/20 15:15:00 EST,[facility] #84037, 165.5, cm, 05/19/20 10:10:00 EST, Height, 102.1, kg, 09/08/19 15:11:00EST, Dry Weight Start Date: 07/18/20 Status: Ordered escitalopram 10 mg oral tablet 1.5 tablet = 15 mg, By Mouth, Daily at bedtime, dose increase, # 45 tablet, 11 Refills, Maintenance, 11/06/21 15:12:00 EDT, [facility] #[id number], Partial fill upon patient request if the [...] Dates Health Status Cl inical Service Informant Suspected COVID-19 virus infection Discharge Diagnosis 11/27/21 Vital Signs Most recent to oldest [Reference Range]: 1 Height 162.56 cm (11/27/21 1:42 PM) Social History Social History Type Response Smoking Status Former smoker, quit more than 30 days ago entered on: 02/01/21 Sex
--- OUTSIDE RECORDS SUMMARY | 2023-11-29 09:30 | XMS_ITS | Continuity of Care Document ---
Author Organization [facility] Address [address] [place] [address]- Care Team Providers Care Line Up Examiner Name Role Phone Jaciel WILSON, [place] Primary Care Physician [place] [facility] [place]23 [place] 08/17/23 [facility] [address] [place] [address]- Allergies, Adverse Reactions, Alerts Substance Reaction Severity Status Flovent chest pain Active Nuts anaphalaxis Active Immunizations Given and Recorded Vaccine Date Status Refusal Reason influenza virus vaccine, inactivated 07/02/22 Gustavo rded influenza virus vaccine, inactivated 1 09/25/21 Gi jennifer influenza virus vaccine, inactivated 04/14/09 Give n [id number] 12y+ bivalent booster vax 07/02/22 Recorded SARS-CoV-2 (COVID-19) mRNA BNT-162b2 vac 07/03/21 Recorded SARS-CoV-2 (COVID-19) mRNA-1273 vaccine 09/07/20 R ecorded SARS-CoV-2 (COVID-19) mRNA-1273 vaccine 08/10/20 R ecorded tetanus/diphtheria/pertussis, acel(Tdap) 02/18/17 Given influ virus vac, H1N1, inactive(oldterm) 2 05/06/09 Given Pneumococcal Poly (PPV23) (oldterm) 06/11/07 Given Tet/Diphth/Acel, Pertussis (oldterm) 3 12/25/06 Gi jennifer 1Result Comment: [facility]:[id number] 2Admin Note: Manufactured by: [employer] 3Admin Note: SANOFI PASTEUR Medications acetaminophen [...] 8.5 Gm, 5 Refills, 03/12/23 10:03:00 EDT, [facility] #[id number], 16, 2 puffs Inhalation Every 4 hours,PRN: [...] 0 Refills, Maintenance, 07/10/23 16:07:00 EST, Capsule, [facility] #[id number], Partial fill upon patient request if the prescription is for a schedule II opi... Start Date: 07/10/23 Status: Ordered Breo Ellipta 100 mcg-25 mcg/inh inhalation powder 1 puffs, Inhalation, Daily, # 3 each, 3 Refills, Maintenance, 03/22/23 13:52:00 EDT, [facility] #[id number], 1 puffs Inhalation Daily, 162, cm, 01/13/23 7:02:00 EDT, Height, 115.9, kg, 01/11/23 12:29:00 EDT, Dry Weight Start Date: 03/22/23 Status: Ordered Breo Ellipta 100 mcg-25 mcg/inh inhalation powder 1 puffs, Inhalation, Daily, # 180 each, 3 Refills, Maintenance, 07/18/23 18:06:00 EST, [facility], 90, Brand name medically necessary - no substitutions, 1 puffs Inhalation Daily, 163, cm, 07/10/23 15:31:00 EST, Height, 127.5, kg, 12... Start Date: 07/18/23 Status: Ordered budesonide-formoterol 160 mcg-4.5 mcg/inh inhalation aerosol with adapter 2, puffs, Inhalation, 2 times a day, to replace Breo, # 1 each, Refills 11, Tot. Refills 11, Maintenance, 07/17/23 8:19:00 EST, Route to Pharmacy Electronically, [id number],[facility] #[id number], 163, cm, 07/10/23 15:3... Start Date: 07/17/23 [...] pack/packet, 0 Refills, Soft Stop, 07/18/20 15:15:00 EST,[facility] #[id number], 165.5, cm, 05/19/20 10:10:00 EST, Height, 102.1, [...] Team Personnel Name: Boston Grissom MD Position: [facility] Physician - Primary Care Member Role: PCP Address: Address: [address] [place] [address]- Care Team Related Persons Name: ANTWON GARCIA Address: home [address] [place] [address]
--- OUTSIDE RECORDS SUMMARY | 2023-11-29 09:30 | XMS_ITS | Continuity of Care Document ---
Author Organization [facility] Address [address] [place] [address]- Care Team Providers Care Airline Lounge Receptionist Name Role Phone Boston Grissom MD Primary Care Physician [phone] [place] [facility] [place](s): 04/19/22 - 05/19/22 [facility] [address], [place] [address] Attending Physician: Scott Murcia Admitting Physician: Scott Murcia Referring Physician: AdmScott diggs Allergies, Adverse Reactions, Alerts Substance Reaction Severity [...] (oldterm) 3 12/25/06 Gi jennifer 1Result Comment: [facility]:[id number] 2Admin Note: Manufactured by: [employer] 3Admin Note: SANOFI PASTEUR Medications Albuterol (Eqv-ProAir HFA) 90 mcg/inh inhalation aerosol 2 puffs, Inhalation, Every 4 hours, PRN NEEDED FOR WHEEZING, # 8.5 Gm, 5 Refills, 04/25/22 9:56:00 EDT, [facility] #[id number], 16, 2 puffs Inhalation Every 4 hours,PRN: NEEDED FOR WHEEZING, 162.56, cm, 04/19/22 9:56:00 EDT, Height, 112.1, k... Start Date: 04/25/22 Status: Ordered albuterol 0.083% inhalation solution 3 mL = 2.5 mg, Inhalation, Every 6 hours, PRN for wheezing, # 60 each, 1 Refills, Maintenance, 02/26/22 9:27:00 EDT, Solution, [facility] #[id number], Partial fill upon patient request if the prescription is for a schedule II opioid drug., 162.56... Start Date: 02/26/22 Status: Ordered Breo Ellipta 100 mcg-25 mcg/inh inhalation powder 1 puffs, Inhalation, Daily, # 3 each, 3 Refills, 02/16/22 12:14:00 EDT, [facility] #[id number], no substitutuion - brand name necessary, 1 puffs Inhalation Daily, 162.56, cm, 02/02/22 15:09:00 EDT, Height, 112.1, kg, 02/02/22 15:11:00 EDT, Dry We... Start Date: 02/16/22 Status: Ordered EpiPen 2-Gage 0.3 mg injectable kit See Instructions, Intramuscular Once, # 1 pack/packet, 0 Refills, Soft Stop, 07/18/20 15:15:00 EST,[facility] #[id number], 165.5, cm, 05/19/20 10:10:00 EST, Height, 102.1, kg, 09/08/19 15:11:00EST, Dry Weight Start Date: 07/18/20 Status: Ordered escitalopram 10 mg oral tablet 1.5 tablet = 15 mg, By Mouth, Daily at bedtime, dose increase, # 45 tablet, 11 Refills, Maintenance, 11/06/21 15:12:00 EDT, [facility] #[id number], Partial fill upon patient request if the [...] tablet, 1 Refills,Maintenance, 02/16/22 12:16:00 EDT, Tablet, [facility] #[id number], 162.56, cm, 02/02/22 15:09:00 EDT, Height, 112.1, [...] on: 02/01/21 Sex Patient Care team information Personnel Name: Boston Grissom MD Address: Address: [address] [place] [id number]
--- OUTSIDE RECORDS SUMMARY | 2023-11-29 09:31 | XMS_ITS | Continuity of Care Document ---
Author Organization [facility] Address [address] [place] [address]- Care Team Providers Care Quality Control Director Name Role Phone Boston Grissom MD Primary Care Physician Encounter [facility] [place] Date(s): 07/10/23 - 07/17/23 [facility] [address], [place] [address] Encounter Diagnosis Asthma exacerbation(Discharge Diagnosis) - 07/10/23 Attending Physician: Soheila Mendiola MD Referring Physician: Boston Grissom MD Allergies, Adverse Reactions, Alerts Substance Reaction Severity Status Flovent chest pain Active Nuts anaphalaxis Active Immunizations Given and Recorded Vaccine Date Status Refusal Reason influenza virus vaccine, inactivated 07/02/22 Gustavo rded influenza virus vaccine, inactivated 1 09/25/21 Gi jennifer influenza virus vaccine, inactivated 04/14/09 Give n [id number] 12y+ bivalent booster vax 07/02/22 Recorded SARS-CoV-2 (COVID-19) mRNA BNT-162b2 vac 07/03/21 Recorded SARS-CoV-2 (COVID-19) mRNA-1273 vaccine 09/07/20 R ecorded SARS-CoV-2 (COVID-19) mRNA-1273 vaccine 08/10/20 R ecorded tetanus/diphtheria/pertussis, acel(Tdap) 02/18/17 Given influ virus vac, H1N1, inactive(oldterm) 2 05/06/09 Given Pneumococcal Poly (PPV23) (oldterm) 06/11/07 Given Tet/Diphth/Acel, Pertussis (oldterm) 3 12/25/06 Gi jennifer 1Result Comment: [facility][NOTE 3]:[id number] 2Admin Note: Manufactured by: [employer] 3Admin Note: SANOFI PASTEUR Medications acetaminophen [...] 8.5 Gm, 5 Refills, 03/12/23 10:03:00 EDT, [facility] #[id number], 16, 2 puffs Inhalation Every 4 hours,PRN: [...] 0 Refills, Maintenance, 07/10/23 16:07:00 EST, Capsule, [facility] #[id number], Partial fill upon patient request if the prescription is for a schedule II opi... Start Date: 07/10/23 Status: Ordered Breo Ellipta 100 mcg-25 mcg/inh inhalation powder 1 puffs, Inhalation, Daily, # 180 each, 3 Refills, Maintenance, 01/28/23 9:16:00 EDT, [facility] #[id number], 90, INHALE 1 PUFF BY MOUTH DAILY, 162, cm, 01/13/23 7:02:00 EDT, Height, 115.9, kg, 01/11/23 12:29:00 EDT, Dry Weight Start Date: 01/28/23 Status: Ordered Breo Ellipta 100 mcg-25 mcg/inh inhalation powder 1 puffs, Inhalation, Daily, # 3 each, 3 Refills, Maintenance, 03/22/23 13:52:00 EDT, [facility] #[id number], 1 puffs Inhalation Daily, 162, cm, 01/13/23 7:02:00 EDT, Height, 115.9, kg, 01/11/23 12:29:00 EDT, Dry Weight Start Date: 03/22/23 Status: Ordered budesonide-formoterol 160 mcg-4.5 mcg/inh inhalation aerosol with adapter 2, puffs, Inhalation, 2 times a day, to replace Breo, # 1 each, Refills 11, Tot. Refills 11, Maintenance, 07/17/23 8:19:00 EST, Route to Pharmacy Electronically, [id number],[facility] #[id number], 163, cm, 07/10/23 15:3... Start Date: 07/17/23 [...] pack/packet, 0 Refills, Soft Stop, 07/18/20 15:15:00 EST,[facility] #[id number], 165.5, cm, 05/19/20 10:10:00 EST, Height, 102.1, [...] Effective Dates Health Status Clinical Service Informant Asthma exacerbation Discharge Diagnosis 07/10/23 Vital Signs Most recent to oldest [Reference Range]: 1 Height 163 cm (07/10/23 3:31 PM) Oxygen Saturation [94-100 %] 98 % (07/10/23 3:31 PM) Pulse Rate [55-90 bpm] 86 bpm (07/10/23 3:31 PM) Blood Pressure [90-138/55-84 mm Hg] 127/ 65mm Hg (07/10/23 3:31 PM) Temperature [96.8-100.4 DegF] 97.8 DegF (07/10/23 3:31 PM) Mode of Delivery (Oxygen) Room air (07/10/23 3:31 PM) Blood pressure sites Arm, right (07/10/23 3:31 PM) Temperature Route Temporal (07/10/23 3:31 PM) Social History Social History Type Response Smoking Status Former smoker, quit more than 30 days ago entered on: 02/01/21 Sex Note * Rina Theodore: PERFORM, SIGN, VERIFY Event Display: Patient Education/Instruction Authored Date: [id number] [facility] *[facility] Clinical Summary Name RADHA, RON Age 42 Years 1980 PCP Boston Grissom MD PCP Visit Date 07/10/2023 13:56:00 Additional Instructions: Scheduled Appointments?? Future Appointments ?*[facility] [address]??[place],??[address] ?Phone:??--?Fax:??-- ?Appt. Date:??10/02/2023?2:00 PM ?Scheduled Provider:??Boston Grissom MD Follow-Up Instructions ?? Diagnosis Unspecified asthma with (acute) exacerbation Medications: Please continue your medications until treatment is completed or stopped by your provider. Discuss any questions related to medications with your provider. New Medications [facility] #[id number], [address], [place] [id number], [phone] Benzonatate (benzonatate 100 mg oral capsule) 1-2 capsule(s) By Mouth up to 3 times a day; as needed Cough. Refills: 0. Next Dose: PredniSONE (predniSONE 20 mg oral tablet) 2 tab(s) Oral Daily for 5 Days. Refills: 0. Next Dose: Medications to Continue with No Changes These medications were not printed or sent to your pharmacy Acetaminophen (acetaminophen 325 mg oral tablet) 650 Milligram Oral every 6 hours. May take OTC not to exceed 3000 mg/day. Next Dose: Acetaminophen (acetaminophen 500 mg oral tablet) 1 tab(s) Oral every 4 hours as needed as needed for pain for 7 Days. Refills: 0. Next Dose: Albuterol (Albuterol (Eqv-ProAir HFA) 90 mcg/inh inhalation aerosol) 2 puff(s) Inhalation every 4 hours as needed NEEDED FOR WHEEZING. Refills: 5. Next Dose: Aspirin (Aspirin Tablet) 325 Milligram Oral twice a day. Next Dose: Cyclobenzaprine (cyclobenzaprine 5 mg oral tablet) 1 tab(s) Oral. PRN. Next Dose: Docusate (Colace Capsule) 100 Milligram Oral twice a day. Next Dose: EPINEPHrine (EpiPen 2-Gage 0.3 mg injectable kit) Intramuscular Once. Refills: 0. Next Dose: fluticasone-vilanterol (Breo Ellipta 100 mcg-25 mcg/inh inhalation powder) 1 puff(s) Inhalation Daily. Refills: 3. Next Dose: fluticasone-vilanterol (Breo Ellipta 100 mcg-25 mcg/inh inhalation powder) 1 puff(s) Inhalation Daily. Refills: 3. Next Dose: Pantoprazole (pantoprazole 40 mg oral delayed release tablet) 40 Milligram Oral Daily. Next Dose: Polyethylene Glycol 3350 (MiraLax Powder) 17 gram Oral Daily as needed Constipation. Next Dose: Senna (senna 187 mg oral tablet) 1 tab(s) Oral Daily at Bedtime as needed as needed for constipation. Next Dose: Allergy Info:?? Nuts; Flovent Medications Given This Visit Future Orders ?Throat Culture Grp A Strep? Order Date:07/10/23?- Complete on or after?07/10/23 Vital Signs Height 163 cm Weight BMI Blood Pressure 127 mm Hg/65 mm Hg Temperature 97.8 DegF Pulse Rate 86 bpm Respiratory Rate 02 Sat Mode of Delivery 98 %/Room air You can now view a summary of your hospital visit from the comfort of your home through a free online portal called [employer]. [employer] is a website that allows you to securely view your medical information including discharge summary, medications and follow-up visits. ??You can alsosend a secure electronic message to your doctor???s office to request appointments, renew medications or just ask a question. You can enroll at [email or web address] or register during your next office visit. Disclaimer:?? The information provided is of a general nature and is intended to be used in conjunction with the recommendations and advice of your health care practitioner. ??Every effort has been made to ensure that the information provided is accurate and complete at the time it is provided to you however, as your needs change, or, as new ??information becomes available, different or additional instructions may be required. If you have questions, please consult with your primary care provider or pharmacist, as appropriate. ??This information is not intended to serve as substitution for assessment and evaluation by a qualified health care provider. If you do not have a primary care provider, you may find a [facility] provider by calling [facility] Link at [phone]. [facility], in keeping with [facility] guidance, no longer requires face masks for staff, patientsor visitors in most situations. Similar to time spent indoors at other locations, there is the chance that you were exposed to respiratory viruses during your time with us (such as flu or COVID-19).? If you develop symptoms concerning for a viral respiratory infection, please seek testing (and treatment if indicated) from your medical provider or home test kit. For information about the plan of care including goals and instructions for your diagnosis, please see the patient education orders section of this document. Patient Education Materials?? The content of this educational material or handout may have been modified, supplemented, or adapted from its original content and format to support your individualized medical care. Patient Care team information Care Team Personnel Name: Boston Grissom MD Position: S Physician - Primary Care Member Role: PCP Address: Address: [address] [place] [address]- Care Team Related Persons Name: ANTWON GARCIA Address: home [address] [place] [address]
--- OUTSIDE RECORDS SUMMARY | 2023-11-29 09:31 | XMS_ITS | Continuity of Care Document ---
Author Organization [facility] Address [address] [place] [address]- Care Team Providers Care Slicing Machine Operator Name Role Phone Boston Grissom MD Primary Care Physician Encounter [facility] [place] Date(s): 08/06/23 - 09/05/23 [facility] [address] [place] [address]- Allergies, Adverse Reactions, Alerts Substance Reaction Severity Status Flovent chest pain Active Nuts anaphalaxis Active Immunizations Given and Recorded Vaccine Date Status Refusal Reason influenza virus vaccine, inactivated 07/02/22 Gustavo rded influenza virus vaccine, inactivated 1 09/25/21 Gi jennifer influenza virus vaccine, inactivated 04/14/09 Give n [id number] 12y+ bivalent booster vax 07/02/22 Recorded SARS-CoV-2 (COVID-19) mRNA BNT-162b2 vac 07/03/21 Recorded SARS-CoV-2 (COVID-19) mRNA-1273 vaccine 09/07/20 R ecorded SARS-CoV-2 (COVID-19) mRNA-1273 vaccine 08/10/20 R ecorded tetanus/diphtheria/pertussis, acel(Tdap) 02/18/17 Given influ virus vac, H1N1, inactive(oldterm) 2 05/06/09 Given Pneumococcal Poly (PPV23) (oldterm) 06/11/07 Given Tet/Diphth/Acel, Pertussis (oldterm) 3 12/25/06 Gi jennifer 1Result Comment: [facility]:[id number] 2Admin Note: Manufactured by: [employer] 3Admin Note: SANOFI PASTEUR Medications acetaminophen [...] 8.5 Gm, 5 Refills, 03/12/23 10:03:00 EDT, [facility] #[id number], 16, 2 puffs Inhalation Every 4 hours,PRN: [...] 0 Refills, Maintenance, 07/10/23 16:07:00 EST, Capsule, [facility] #[id number], Partial fill upon patient request if the prescription is for a schedule II opi... Start Date: 07/10/23 Status: Ordered Breo Ellipta 100 mcg-25 mcg/inh inhalation powder 1 puffs, Inhalation, Daily, # 3 each, 3 Refills, Maintenance, 03/22/23 13:52:00 EDT, [facility] #[id number], 1 puffs Inhalation Daily, 162, cm, 01/13/23 7:02:00 EDT, Height, 115.9, kg, 01/11/23 12:29:00 EDT, Dry Weight Start Date: 03/22/23 Status: Ordered Breo Ellipta 100 mcg-25 mcg/inh inhalation powder 1 puffs, Inhalation, Daily, # 180 each, 3 Refills, Maintenance, 07/18/23 18:06:00 EST, [facility], 90, Brand name medically necessary - no substitutions, 1 puffs Inhalation Daily, 163, cm, 07/10/23 15:31:00 EST, Height, 127.5, kg, ... Start Date: 07/18/23 Status: Ordered budesonide-formoterol 160 mcg-4.5 mcg/inh inhalation aerosol with adapter 2, puffs, Inhalation, 2 times a day, to replace Breo, # 1 each, Refills 11, Tot. Refills 11, Maintenance, 07/17/23 8:19:00 EST, Route to Pharmacy Electronically, [id number],[facility] #[id number], 163, cm, 07/10/23 15:3... Start Date: 07/17/23 [...] pack/packet, 0 Refills, Soft Stop, 07/18/20 15:15:00 EST,[facility] #[id number], 165.5, cm, 05/19/20 10:10:00 EST, Height, 102.1, [...] Team Personnel Name: Boston Grissom MD Position: [facility] Physician - Primary Care Member Role: PCP Address: Address: [address] [place] [address]- Care Team Related Persons Name: ANTWON GARCIA Address: home [address] [place] [address]
--- OUTSIDE RECORDS SUMMARY | 2023-11-29 09:31 | XMS_ITS | Continuity of Care Document ---
Author Organization [facility] Address Unknown Care Team Providers Care Acid Leveler Name Role Phone Boston Grissom MD Primary Care Physician [phone] Encounter [facility] Date(s): 05/18/21 - 05/25/21 [facility] Encounter Diagnosis Weight gain(Discharge Diagnosis) - 05/18/21 History of sleeve gastrectomy(Discharge Diagnosis) - 05/18/21 Morbid obesity with BMI of 40.0-44.9, adult(Discharge Diagnosis) - 05/18/21 Attending Physician: Elias Person Referring Physician: Boston Grissom MD Allergies, Adverse [...] 25 each, 5 Refills, Maintenance, 07/20/20 14:16:00 [facility][id number], 165.5, cm, 07/19/20 18:29:00 EST, Height, 102.1, kg, 09/08/19 15:11:00 EST, Dry Weight Start Date: 07/20/20 Status: Ordered Breo Ellipta 100 mcg-25 mcg/inh inhalation powder 1 puffs, Inhalation, Daily, # 1 each, 11 Refills, Maintenance, 10/03/20 15:46:00 EDT, Powder, [facility] #[id number], 1 puffs Inhalation Daily, 165.5, cm, 09/20/20 13:58:00 EST, Height, 102.1, kg, 09/08/19 15:11:00 EST, Dry Weight Start Date: 10/03/20 Status: Ordered cyclobenzaprine 5 mg oral tablet 1 tablet, By Mouth, 3 times a day, PRN NEEDED FOR LEG PAIN, # 30 tablet, 0 Refills, [facility] #[id number], 165.5, cm, 02/01/21 19:07:00 EDT, Height, 109, kg, 02/01/21 19:07:00 EDT, Dry Weight Start Date: 04/24/21 Status: Ordered EpiPen 2-Gage 0.3 mg injectable kit See Instructions, Intramuscular Once, # 1 pack/packet, 0 Refills, Soft Stop, 07/18/20 15:15:00 EST,[facility] #[id number], 165.5, cm, 05/19/20 10:10:00 EST, Height, 102.1, [...] 16:16:00 EDT, [facility]erosol, Route to Pharmacy Electronically, [id number], [facility] #[id number], 165.5, cm, 09/08/19 15:0... 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 Obstructive sleep apnea(Confirmed) Active 1both parents Diagnosis Diagnosis Type Effective Dates Health Status Clinical Service Informant Weight gain Discharge Diagnosis 05/18/21 History of sleeve gastrectomy Discharge Diagnosis 05/18/21 Morbid obesity with BMI of 40.0-44.9, adult Discharge Diagnosis 05/18/21 Procedures Procedure Date Related Diagnosis Body Site Status Laparoscopic sleeve gastrectomy 2013 Completed Vital Signs Most recent to oldest [Reference Range]: 1 Height 163 cm (05/18/21 10:53 AM) Weight 108.4 kg (05/18/21 10:53 AM) Pulse Rate [55-90 bpm] 87 bpm (05/18/21 10:53 AM) Body Mass Index [18.5-24.99] 40.8 *>HHI* (05/18/21 10:53 AM) Blood Pressure [90-138/55-84 mm Hg] 108/ 73mm Hg (05/18/21 10:53 AM) Temperature [96.8-100.4 DegF] 97.2 DegF (05/18/21 10:53 AM) Blood pressure sites Arm, left (05/18/21 10:53 AM) Temperature Route Temporal (05/18/21 10:53 AM) Weight Obtained Via Standing scale (05/18/21 10:53 AM) Social History Social History Type Response Smoking Status Former smoker, quit more than 30 days ago entered on: 02/01/21 Sex
--- OUTSIDE RECORDS SUMMARY | 2023-11-29 09:31 | XMS_ITS | Continuity of Care Document ---
Author Organization [facility] Address Unknown Care Team Providers Care 2 Year Olds Preschool Teacher Name Role Phone Boston Grissom MD Primary Care Physician Encounter [facility] [place] Date(s): 08/03/21 - 08/10/21 [facility] Attending Physician: Knee RD, Anneliese Allergies, Adverse Reactions, Alerts Substance Reaction Severity [...] 12/25/06 Gi jennifer 1Admin Note: Manufactured by: [employer] 2Admin Note: SANOFI PASTEUR Medications Albuterol (Eqv-ProAir HFA) 90 mcg/inh inhalation aerosol 2 puffs, Inhalation, Every 4 hours, PRN NEEDED FOR WHEEZING, # 8.5 Gm, 2 Refills, [facility] #[id number], 16, INHALE 2 PUFFS BY MOUTH EVERY 4 HOURS NEEDED FOR WHEEZING, 163, cm, 06/21/21 8:48:00 EST, Height, 109, kg, 02/01/21 19:07:00 EDT,... Start Date: 07/03/21 Status: Ordered Breo Ellipta 100 mcg-25 mcg/inh inhalation powder 1 puffs, Inhalation, Daily, # 1 each, 11 Refills, Maintenance, 10/03/20 15:46:00 EDT, Powder, [facility] #[id number], 1 puffs Inhalation Daily, 165.5, cm, 09/20/20 13:58:00 EST, Height, 102.1, kg, 09/08/19 15:11:00 EST, Dry Weight Start Date: 10/03/20 Status: Ordered EpiPen 2-Gage 0.3 mg injectable kit See Instructions, Intramuscular Once, # 1 pack/packet, 0 Refills, Soft Stop, 07/18/20 15:15:00 EST,[facility] #[id number], 165.5, cm, 05/19/20 10:10:00 EST, Height, 102.1, [...] EDT, Supply Start Date: 05/10/21 Status: Ordered Vitamin B12 0 Refills, Maintenance, [...]
--- OUTSIDE RECORDS SUMMARY | 2023-11-29 09:31 | XMS_ITS | Continuity of Care Document ---
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 Name Role Phone Boston Grissom MD Primary Care Physician [phone] Encounter [facility] Date(s): 01/11/23 - 01/13/[address] [id number] Discharge Disposition: A-Transfer VNA/Home Health Attending Physician: Elias Young MD Admitting Physician: Elias Young MD Referring Physician: Elias Young MD Allergies, Adverse Reactions, Alerts Substance Reaction Severity Status Flovent chest pain Active Nuts anaphalaxis Active Immunizations Given and Recorded Vaccine Date Status Refusal Reason influenza virus vaccine, inactivated 07/02/22 Gustavo rded influenza virus vaccine, inactivated 1 09/25/21 Gi jennifer influenza virus vaccine, inactivated 04/14/09 Give n [id number] 12y+ bivalent booster vax 07/02/22 Recorded SARS-CoV-2 (COVID-19) mRNA BNT-162b2 vac 07/03/21 Recorded SARS-CoV-2 (COVID-19) mRNA-1273 vaccine 09/07/20 R ecorded SARS-CoV-2 (COVID-19) mRNA-1273 vaccine 08/10/20 R ecorded tetanus/diphtheria/pertussis, acel(Tdap) 02/18/17 Given influ virus vac, H1N1, inactive(oldterm) 2 05/06/09 Given Pneumococcal Poly (PPV23) (oldterm) 06/11/07 Given Tet/Diphth/Acel, Pertussis (oldterm) 3 12/25/06 Gi jennifer 1Result Comment: [facility]:[id number] 2Admin Note: Manufactured by: [employer]. 3Admin Note: SANOFI PASTEUR Medications acetaminophen 325 [...] 8.5 Gm, 5 Refills, 12/25/22 6:12:00 EDT, [id number], 16, 2 puffs Inhalation Every 4 hours,PRN: [...] 3 each, 3 Refills, 02/16/22 12:14:00 EDT, [facility] #[id number], no substitutuion - brand name necessary, 1 [...] pack/packet, 0 Refills, Soft Stop, 07/18/20 15:15:00 EST,[facility] #[id number], 165.5, cm, 05/19/20 10:10:00 EST, Height, 102.1, [...] Replace Required Details, Route to Pharmacy Electronically, [facility]... Start Date: 01/12/23 Stop Date: 01/19/23 Status: Ordered OxyCODONE IR Tablet 10 mg, Tablet, By Mouth, Every 4 hours, PRN for Pain , Severe, Routine, 01/11/23 9:51:00 EDT Start Date: 01/11/23 Stop Date: 01/18/23 Status: Ordered pantoprazole 40 mg oral delayed [...] 01/19/23 8:55:00 EDT, 01/12/23 8:54:00 EDT, Tablet, [facility], Partial fill upon patient request [...] Active Severe obesity Confirmed Active 1both parents Results Radiology Reports * Exam Date Time Procedure Performing Provider Status 01/11/23 12:07 PM Pelvis 1 or 2 Views Tiesha Narayan; Auth (Verified) Notes: (Pelvis 1 or 2 Views) Reason For Exam: Postop Prosthesis RESULT: Pelvis 1 or 2 Views Pelvis 1 or 2 Views REASON: Postop Prosthesis; Clinical Question(s): Status of Hip Prosthesis; Special Instructions: LEFT Hip - To be done in PACU COMPARISON: Earlier today FINDINGS: Status post left total hip arthroplasty. Alignment appears standard. Surrounding soft tissue swelling and soft tissue gas is compatible with the postoperative state. No unexpected radiopaque foreign body. Essure devices noted in the pelvis. IMPRESSION: Status post left total hip arthroplasty without evidence of complication. WSN: [id number] Ordering Physician: Cem Marcial Dictated By: Sherif Clements MD Dictated Date/Time: 01/11/23 12:59 p Reviewed By: Sherif Clements MD Signed By: Sherif Clements MD Signed Date/Time: 01/11/23 12:59 pm Transcribed By: AARON Transcribed Date/Time: 01/11/23 12:58 pm * Exam Date Time Procedure Performing Provider Status 01/11/23 10:05 AM Pelvis 1 or 2 Views Enid Christianson; Auth (Verified) Notes: (Pelvis 1 or 2 Views) Reason For Exam: Left total hip replacement for osteoarthritis RESULT: Pelvis 1 or 2 Views Pelvis 1 or 2 Views Reason: Left total hip replacement for osteoarthritis; Special Instructions: intraoperative film COMPARISON: 10/01/2018. FINDINGS: A single frontal view of the lower pelvis also obtained portably in the operating room during a total left hip arthroplasty shows the acetabular and femoral components to be in satisfactory position. There are expected minimal postoperative changes surrounding the prostatic left hip particularly laterally and superiorly. IMPRESSION: Satisfactory intraoperative appearance of a total left hip arthroplasty as described above. WSN: [id number] Ordering Physician: Elias Young Dictated By: Otilio Stewart MD, V Dictated Date/Time: 01/11/23 10:11 a Reviewed By: Otilio Stewart MD, V Signed By: Otilio Stewart MD, V Signed Date/Time: 01/11/23 10:11 am Transcribed By: AARON Transcribed Date/Time: 01/11/23 10:08 am Vital Signs Most recent to oldest [Reference Range]: 1 2 3 Height 162 cm (01/13/23 7:02 AM) 162 cm (01/13/23 4:32 AM) 162 cm (01/12/23 7:54 PM) Weight 115.9 kg (01/11/23 12:29 PM) 115.9 kg (01/11/23 6:35 AM) Oxygen Saturation [94-100 %] 97 % (01/13/23 7:02 AM) 98 % (01/13/23 4:32 AM) 99 % (01/12/23 7:54 PM) Pulse Rate [55-90 bpm] 89 bpm (01/13/23 7:02 AM) 88 bpm (01/13/23 4:32 AM) 90 bpm (01/12/23 7:54 PM) Body Mass Index [18.5-24.99 kg/m2] 44.16 kg/m2 *>HHI* (01/11/23 12:29 PM) Blood Pressure [90-138/55-84 mm Hg] 110/59mm Hg (01/13/23 7:02 AM) 111/55mm Hg (01/13/23 4:32 AM) 122/56mm Hg (01/12/23 7:54 PM) Respiratory Rate [16-30 br/min] 16 br/min (01/13/23 10:17 AM) 16 br/min (01/13/23 9:17 AM) 17 br/min (01/13/23 7:02 AM) Temperature [96.8-100.4 DegF] 97.4 DegF (01/13/23 7:02 AM) 97.8 DegF (01/13/23 4:32 AM) 98.1 DegF (01/12/23 7:54 PM) Liters per Minute 2 L/min (01/12/23 4:02 AM) 5 L/min (01/11/23 11:00 AM) Mode of Delivery (Oxygen) Room air (01/13/23 7:02 AM) Room air (01/13/23 4:32 AM) Room air (01/12/23 7:54 PM) Blood pressure sites Arm, right (01/13/23 7:02 AM) Arm, right (01/13/23 4:32 AM) Arm, right (01/12/23 7:54 PM) Temperature Route Oral (01/13/23 7:02 AM) Oral (01/13/23 4:32 AM) Oral (01/12/23 7:54 PM) Dry Weight 115.9 kg (01/11/23 12:29 PM) 115.9 kg (01/11/23 6:35 AM) Weight Obtained Via Standing scale (01/11/23 12:29 PM) Standing scale (01/11/23 6:35 AM) Dry Weight Obtained Via Standing scale (01/11/23 12:29 PM) Standing scale (01/11/23 6:35 AM) Social History Social History Type Response Smoking Status Former smoker, quit more than 30 days ago entered on: 02/01/21 Sex History and physical note * Event Display: History and Physical Hospital Authored Date: [id number] * Event Display: History and Physical Hospital Authored Date: [id number] SURGICAL HISTORY AND PHYSICAL DATE: 01/11/2023 PRIMARY DIAGNOSIS: Osteoarthritis of the left hip. REASON FOR ADMISSION: Left total hip replacement with Dr. Young on 01/11/2023. HISTORY OF PRESENT ILLNESS: The patient is a 42-year-old female who presents today for evaluation of her left hip for upcoming surgery. She has a known longstanding history of left hip osteoarthritisand has undergone a lengthy course of conservative management with generalized failure of nonsurgical options. Her pain is severe and worsened with activity. She is now ready to pursue a left total hip replacement with Dr. Young on 01/11/2023. PAST MEDICAL HISTORY: 1. Osteoarthritis of the left hip. 2. Obesity, BMI 42.9. 3. Asthma. 4. Hyperlipidemia. 5. GERD. 6. Depression. 7. Sleep apnea. She does not use CPAP machine. 8. Urinary incontinence. 9. Prediabetes. 10. Lateral femoral cutaneous entrapment. PAST SURGICAL HISTORY: 1. Laparoscopic sleeve gastrectomy in 2013. 2. Tubal occlusion. 3. Mesh. MEDICATIONS: 1. Albuterol as needed. 2. Breo daily. She was instructed to use this morning of surgery and bring it with her to the hospital. 3. Cyclobenzaprine 5 mg 3 times a day as needed. She was instructed she can take this morning of surgery if needed. 4. Vitamin B12, which she has stopped in preparation for surgery. ALLERGIES: FLOVENT and NUTS. SOCIAL HISTORY: Reports occasional alcohol usage. Denies tobacco or illicit drug usage. PHYSICIANS: Primary care provider is Dr. Boston Grissom. REVIEW OF SYSTEMS: The patient denies headache, dizziness or syncope. Denies fever, chills, unexplained weight loss or fatigue. Denies rash or lesions. Denies rhinorrhea, earache, sore throat or swollen glands. Denies cough, shortness of breath or wheezing. Denies chest pain, pressure, palpitationsor edema. Denies nausea, vomiting, diarrhea, constipation, or abdominal pain. Denies dysuria, urinary urgency or frequency. Denies calf pain or history of blood clots. Denies any bleeding tendencies.Denies any active dental issues. PHYSICAL EXAMINATION: VITAL SIGNS: Height 64 inches, weight 254 pounds. Temperature 97.5, blood pressure 116/60, pulse 75. GENERAL: Alert and oriented. Normal insight, affect, and grooming. SKIN: Intact without rash or lesions. Nails without clubbing or cyanosis. HEENT: Normocephalic. Conjunctivae pink. Sclerae anicteric. NECK: Supple. Trachea midline. No lymphadenopathy. CHEST: Lungs are clear to auscultation bilaterally. Breathing is unlabored. CARDIOVASCULAR: Heart has a regular rate and rhythm with normal S1, S2. No murmurs, rubs or gallopsappreciated. No JVD. Carotid pulses without bruits. ABDOMEN: Soft, nontender with normal bowel sounds. No masses noted. No bruits appreciated. EXTREMITIES: No erythema, no abrasions, no edema noted. Skin temperature is normal. Swelling is notpresent. Sensation is normal, 2+ dorsalis pedis pulses bilaterally. Good dorsi and plantar flexion bilaterally. Calves are supple, nontender. Skin about the feet is intact. PREOPERATIVE DIAGNOSTIC DATA: Orthopedic x-rays demonstrate osteoarthritis of the left hip. EKG, which reads normal sinus rhythm. LABORATORY DATA: CBC, chem panel, coag studies within normal limits. Hemoglobin is 11.1. Her A1c is5.9. ASSESSMENT AND PLAN: The patient has advanced osteoarthritis of the left hip and is now scheduled for left total hip replacement with Dr. Young on 01/11/2023. The patient saw the medical consult teamfor preoperative clearance, who stated the patient is a low risk for upcoming surgery and no further testing is required at this time. The patient wants to spend at least one night in the hospital. The patient will receive IV TXA. She will be on aspirin postoperatively for DVT prophylaxis. She willhave point of care and sliding scale insulin as needed. We will have her end-tidal CO2 and O2 monitored. The patient has been counseled regarding the risks and benefits of the proposed procedure, herquestions have been answered and she acknowledges understanding. The patient wishes to proceed withsurgery and has signed the consents. CONTACTS: Her father, phone #[phone]. Prescriptions given at the time of the H and P include aspirin, Celebrex, Colace, and pantoprazole.She will require prescription for pain medications upon discharge. Dictated by: Jael Pastor N.P. Signing Clinician: Elias Young M.D. Dictated: 12/31/2022 09:46:06 Transcribed: 05:10:37 AM Transcribed by: ARIADNA/ARJUN/BERTA DocID: [id number] PRELIMINARY REPORT UNLESS MANUALLY/ELECTRONICALLY SIGNED Note * Jessica KEENAN, Jennifer Araujo: PERFORM Event Display: Patient Education/Instruction Authored Date: [id number] Inpatient Adult Discharge Instructions [address] [id number] Name: RON JEANGO : 1980 Visit: 01/11/2023 06:09:00 Current Date: 01/13/2023 13:36 Account: [id number] Inpatient Adult Discharge Instructions We would like to thank you for allowing us to assist you with your healthcare needs. The following includes patient education materials and information regarding your injury/illness. Our entire staffstrives to provide an excellent experience for our patients and their families. PLEASE ENSURE YOU FOLLOW-UP PER THE INSTRUCTIONS BELOW! ?? YOUR OPINION IS IMPORTANT TO US! Please complete the survey you may receive by mail or email. Your feedback will be used to make improvements to the healthcare experiences of our patients and their families. Surveys are administered by [employer]. ?? If further treatment with your primary care physician or another doctor is recommended, it is important for you to keep the appointment. Call your primary care physician or return to the Emergency Department immediately if your condition worsens, fails to improve, or new symptoms develop. If you need to find a doctor, you can call [facility] for a referral at [phone] or toll free at [phone]) or log in to [email or web address].. ?? You can view and manage your care through the patient portal or by using a health care julianna of your choosing. [employer] is a website that allows you to securely view your medical information including your hospital discharge summary, office visit summaries, medications and follow-up visits. You can also request appointments, renew medications, and request access to your medical information using a health care julianna of your choosing, or just ask a question. You can enroll at [email or web address] or register during your next office visit. You have been discharged from [facility], Patient Care Unit: SW7. If you have any questions regarding these instructions after you leave, please call us and we will be happy to assist you. [facility] Your Care Team Attending Physician Elias Young MD Consulting Providers Elias Young MD Discharging Providers Elias Young MD Reason for Admission OA LEFT HIP 23OVN Your Diagnosis Osteoarthritis of hip Tests Performed Below is a partial list of the tests performed during your hospitalization. You may have had other tests and procedures not included in this list. Please discuss all test results with your provider. BUN CBC Creatinine Electrolytes GLUCOSE POC XR Pelvis 1 or 2 Views Primary Care Provider Boston Grissom MD Advance Directive Health Care Proxy on File Yes - Health Care Proxy Discharge Vitals Temperature: 97.4 DegF Height: 162 cm Pulse Rate: 89 bpm Weight: 115.9 kg Respiratory Rate: 16 br/min Body Mass Index:??44.16 kg/m2??Critical Systolic Blood Pressure: 110 mm Hg Body surface area: 2.28 Diastolic Blood Pressure: 59 mm Hg ?? Oxygen Saturation: 97 % ?? Studies Pending All tests and labs ordered during this hospital stay have been completed unless listed below. Please discuss all pending results with your provider listed above in these instructions. ?? BUN CBC Creatinine Electrolytes What to do next Instructions From Your Doctor Discharge Orders You Need to Schedule the Following Appointments Follow Up with??Hannah WILSON, Elias Herron Why: Follow up as scheduled Where: [address] [facility] [address]- Follow Up with??[facility] [phone] Discharge Medications RON GARCIA :1980 Visit Date:01/11/2023 Medications: Please continue your medications until treatment is completed or stopped by your provider. Medications not listed below should be discontinued. Discuss any questions related to medications with your provider. What How Much When Instructions Next Dose New Acetaminophen (acetaminophen 325 mg oral tablet) 650 Milligram Oral Every 6 hours May take OTC not to exceed 3000 mg/ day ?? New Aspirin (Aspirin Tablet) 325 Milligram Oral Twice a day New Docusate (Colace Capsule) 100 Milligram Oral Twice a day New Oxycodone (oxyCODONE 5 mg oral tablet) See instructions Take 1-2 tablets ??By Mouth Every 4 hours, As needed for Pain , Severe ?? Pickup at [facility] 3 New Pantoprazole (pantoprazole 40 mg oral delayed release tablet) 40 Milligram Oral Daily New Polyethylene Glycol 3350 (MiraLax Powder) 17 gram Oral Daily as needed for Constipation New Senna (senna 187 mg oral tablet) 1 tab(s) Oral Daily at Bedtime as needed for as needed for constipation New Tramadol (traMADol 50 mg oral tablet) See instructions Take 1-2 tablets ??By Mouth Every 6 hours not to exceed 400 mg/ day, As needed for Pain , Mild ?? Pickup at [facility] 3 Unchanged Albuterol (Albuterol (Eqv-ProAir HFA) 90 mcg/ inh inhalation aerosol) 2 puff(s) Inhalation Every 4 hours as needed for NEEDED FOR WHEEZING Unchanged Cyclobenzaprine (cyclobenzaprine 5 mg oral tablet) 1 tab(s) Oral PRN ?? Unchanged EPINEPHrine (EpiPen 2-Gage 0.3 mg injectable kit) See instructions Intramuscular Once ?? Unchanged fluticasone-vilanterol (Breo Ellipta 100 mcg-25 mcg/ inh inhalation powder) 1 puff(s) Inhalation Daily Pharmacy Information [facility] 3: [address] [place], [place] [id number] [phone] ?? What When Comments Stop Taking Cyanocobalamin (Vitamin B12) Test Results Below is a partial list of the most recent Laboratory test results done prior to this discharge. You may have had other tests and procedures not included in this list. Please discuss all test resultswith your provider. Est Creatinine Clearance - 76.77 mL/min (01/13/2023) 01007 (01/11/2023) ? ?Surgical Pathology - Patient Name: RON GARCIA
Lab
Patient : 1980 (Age: 42)
Collection Date: 01/11/2023
Accession Date: 01/11/2023
Sign Out Date: 01/12/2023

<br/& gt;Tissue Source:
1:LEFT FEMORAL HEAD

Final Diagnosis:< br/>Femoral head, left, excision:
- Femoral head with degenerative changes of articular cartilaginous surface and eburnation consistent with severe osteoarthritis (gross examination).

Primary Pathologist:He Strange M.D.
electronically signed out by: He Strange M.D. / VNAESSA

Clinical History:
Left hip OA

Gross Description:
Labeled left femoral head . Received in formalin is a 4.7 x 4.6 x 4.3 cm femoral head with up to 1.2 cm of attached femoral neck. The margin of transection is smooth. The articular surface ranges from pink-may, glistening to pink-red, granular. Eburnation and pitting are present. Osteophytes are identified. Sectioning reveals yellow-red, trabecular cut surfaces. No sections are submitted. Gross exam only. (KM)*

Phone #: [phone], On-Call Pathologist: [id number] BUN (01/13/2023) ???BUN - 11 mg/dL CBC (01/13/2023) ???WBC - 6.4 k/mm3???RBC - 3.39 m/mm3???Hgb - 8.2 Gm/dL???Hct - 27.1 %???MCV - 79.9 femtoliters???MCH - 24.2 pg???MCHC - 30.3 g/dL???Platelet Count - 301 k/mm3???RDW-SD - 47.4 femtoliters???MPV - 8.8femtoliters???Nucleated RBC (Automated) - 0.0 #/100 WBC'S???Abs. NRBC - 0.0 k/mm3 Creatinine (01/13/2023) ???Creatinine-Blood - 0.8 mg/dL???Estimated GFR Creatinine - 97 ML/MIN/1.73 M2 Electrolytes (01/13/2023) ???Sodium - 140 mmol/L???Potassium - 4.3 mmol/L???Chloride - 104 mmol/L???Bicarbonate Level - 28 mmol/L???Anion Gap - 8 GLUCOSE POC (01/13/2023) ???Glucose, POC - 103 mg/dL Allergies (NKA means No Known Allergies) Flovent??(chest pain) Nuts??(anaphalaxis) Problems Active Problems??(9) ASTHMA?? FH: Diabetes mellitus?? FH: HTN?? Lateral femoral cutaneous entrapment syndrome?? Morbid obesity with BMI of 40.0-44.9, adult?? Obstructive sleep apnea?? Osteoarthritis of left hip (candidate for THR)?? Severe obesity?? Urinary incontinence?? Education Materials Below is the list of Educational Leaflet Providered with your Discharge Instructions. Total Hip Replacement Discharge Instructions?? Valuables and Belongings I fully understand and agree that [facility] accepts no responsibility for all my personal property including clothing, toilet articles, radios, jewelry, dentures, hearing aids, rings, money, or any other property that is in my possession or is brought to me after admission. I understand certain valuables may be placed in a hospital safe for a short period of time. I understand that the hospital is not liable for loss or damage due to accident, fire, or other natural occurrence while said property is in the safe. I accept full responsibility for any personal property that I keep with me, and will not hold the hospital responsible in case of loss or disappearance. I acknowledge that i have been encouraged to send valuables and belongings home. ?? Review of Valuable and Belonging List: With patient Possessions released to: PACU Date for Pt to Sign Valuables/Belongings: 01/11/23 12:54:00 ?? Other Discharge Information ? Case Management Discharge Plan?? Discharge Plan?? Discharge Agency Information?? Discharge Level of Care at Discharge: Homehealth/VNA Name of Agency #1: [facility] Mode of Transportation Arranged: car Agency Client Service Associate #1: Intake Discharge VNA/Hospice/Home Care: [facility] [phone] Service Categories #1: Occupational Therapy, Physical Therapy ?? Service Comments #1: The VNA will call you to set up an appointment. Please call the agency with any questions [phone] ?? Pulmonary Rehab Status?? Pulmonary Rehab Discharge Status?? Respiratory Rate: 16 br/min ? Common Emergency Awareness Tips IS IT A STROKE? Act FAST and Check for these signs: FACE Does the face look uneven? ARM Does one arm drift down? SPEECH Does their speech sound strange? TIME Call at any sign of stroke ?? Heart Attack Signs Chest discomfort: Most heart attacks involve discomfort in the center of the chest and lasts more than a few minutes, or goes away and comes back. It can feel like uncomfortable pressure, squeezing, fullness or pain. Discomfort in upper body: Symptoms can include pain or discomfort in one or both arms, back, neck, jaw or stomach. Shortness of breath: With or without discomfort. Other signs: Breaking out in a cold sweat, nausea, or lightheaded. Remember, MINUTES DO MATTER. If you experience any of these heart attack warning signs, call to get immediate medical attention! ?? Smoking can increase your chances of developing chronic health problems and can cause harmful effects to other family members in your house. If you smoke, you are strongly encouraged to quit. Please call [facility] at [phone] or [phone]) or log in to [email or web address] for referrals to smoking cessation programs. ?? 731 Suicide & Crisis Lifeline is available 04/02 if you or someone you know needs to find a reason to keep living. By calling 253 you'll be connected to a skilled, trained counselor at a crisis center in your area. INPATIENT DISCHARGE INSTRUCTIONS SIGNATURE PAGE RON GARCIA Location:[facility] Registration Date and Time:01/11/2023 06:09 EDT Primary Care Physician: Boston Grissom MD, Attending Physician: Elias Young MD, Lino RADHARON, have received the above patient education materials/instructions and have verbalized understanding. If ambulance or transport services are being used I further acknowledge being given a choice of service. ?? If you need to contact me, please call me at this number: . Patient/Forensic Technician Name: Patient/Forensic Technician Signature: Relationship to Patient: Witness Name/Signature: Date: * Jennifer Lopez RN: PERFORM Event Display: Patient Education Leaflets Authored Date: [id number] Total Hip Replacement Discharge Instructions ?? 666 Total Hip Replacement Discharge Instructions ? Please read and review your Total Hip Replacement Book for detailed information ??? Your appetite may be decreased but try to maintain a good balanced diet Incision ?Your incision is closed with absorbable stitches and surgical glue. ?The dressing is waterproof. You may shower the next day. ??? Your dressing will stay on for 1-2 weeks ?You cannot go in a bath, pool, ocean, pond, saleem or jacuzzi for 6 weeks. This is to reduce your risk of infection ? You may have some numbness around the incision. This is normal and will improve with time. Some patients have numbness that does not completely go away. ??? You may have skin discoloration (yellowish or bruising) around your incision which may develop. ??? Ice and elevation ? Ice is important to help keep swelling down. ?Keep your leg elevated as much as possible. ?Ice your hip 4 times a day for 20 minutes each time. Be sure not to put the ice/ice pack directly on your skin. Use a dishtowel or something similar between your skin and the ice. ??? Drs. Young, Raeann, and Kasey???Weber patients: The blue wedge is to be used between your knees when sleeping and sitting in a chair for the first few weeks. This keeps your hip in the proper position ? Moving ? Moving is especially important. This helps to prevent blood clots. Take short frequent walks. ? Exercises as per physical therapy ??? No driving until approved by your surgeon ??? Continue to move your foot up and down, these exercises help to prevent blood clots and help to decrease swelling in your hip. ?? When to call the Surgeon?CALL [phone] ? If you have shortness of breath or chestpain, call 911 or go to the nearest emergency department. ??? If you have drainage and/or redness around your wound. ??? If you have a fever greater than 101.5 (38.5 degrees Celsius). ??? If you havepersistent calf pain or swelling (This could be a blood clot). ??? If your pain is worsening. ? If you have any difficulty with urination or burning with urination. ?? * Event Display: Adult Preadmission Health Questionnaire Authored Date: * Elias Young MD: MODIFY, SIGN, PERFORM, SIGN, VERIFY Event Display: Discharge/Transfer Note Hospital Authored Date: Patient: RON GARCIA Age: 42 years Sex: Female : 1980 Associated Diagnoses: None Author: Elias Young MD Discharge Summary Admission Date: 01/11/2023 Discharge Date: 01/13/2023 Admitting Diagnosis: Left hip osteoarthritis Discharge Diagnosis: Left hip osteoarthritis Final Diagnosis: Left hip osteoarthritis Procedure: Left total hip arthroplasty Surgeon: Dr. Elias Young Past Medical History: 1. Osteoarthritis of the left hip. 2. Obesity, BMI 42.9. 3. Asthma. 4. Hyperlipidemia. 5. GERD. 6. Depression. 7. Sleep apnea. She does not use CPAP machine. 8. Urinary incontinence. 9. Prediabetes. 10. Lateral femoral cutaneous entrapment. Orthopedics: The patient is status post left hip arthroplasty. It is anticipated that she will be discharged home today pending PT, OT clearance. The patient made slow progress on POD#1 The patient is doing well from a surgical standpoint. His incision is healing well. Neurovascular status is intact. Calves are supple and nontender. The patient is weight bearing as tolerated. Making good progresswith Physical Therapy and Occupational therapy. Supervision with ambulation walking 30 feet, ambulating with a walker. Pain is well controlled on her current regime, Acetaminophen 650 mg every 6 hours, Celebrex, Tramadol and Oxycodone 5-10 mg every 4 hours as needed . Patient is tolerating this well. She will be sent home with a prescription for this medication. Prescription: Tramadol 50 mg, take 1-2 tablets every 6 hours PRN mild pain, 7 day, # 56 Oxycodone 5 mg tablet, take 1-2 tablets every 4 hours as needed for moderate pain, 7 days # 84 Hospital course: Relatively uneventful medically. Patient is voiding spontaneously. + bowel sounds. all morning bowel medications will be given in anticipation of a BM prior to discharge. No other issues. No calf tenderness. Current Medication List: Acetaminophen (acetaminophen 325 mg oral tablet) 650 Milligram By Mouth Every 6 hours May take OTC not to exceed 3000 mg/day Albuterol (Albuterol (Eqv-ProAir HFA) 90 mcg/inh inhalation aerosol) 2 puff(s) Inhalation Every 4 hours as needed NEEDED FOR WHEEZING Aspirin (Aspirin Tablet) 325 Milligram By Mouth 2 times a day Cyclobenzaprine (cyclobenzaprine 5 mg oral tablet) 1 tab(s) 5 Milligram By Mouth PRN Docusate (Colace Capsule) 100 Milligram 1 capsule By Mouth 2 times a day EPINEPHrine (EpiPen 2-Gage 0.3 mg injectable kit) See Instructions Intramuscular Once fluticasone-vilanterol (Breo Ellipta 100 mcg-25 mcg/inh inhalation powder) 1 puff(s) Inhalation Daily Oxycodone (oxyCODONE 5 mg oral tablet) See Instructions as needed Take 1-2 tablets By Mouth Every 4hours Pain , Severe Pantoprazole (pantoprazole 40 mg oral delayed release tablet) 40 Milligram By Mouth Daily Polyethylene Glycol 3350 (MiraLax Powder) 1 pack/packet 17 gram By Mouth Daily as needed Constipation Senna (senna 187 mg oral tablet) 1 tab(s) 8.6 Milligram By Mouth Daily at bedtime as needed as needed for constipation Tramadol (traMADol 50 mg oral tablet) See Instructions as needed Pain , Mild Take 1-2 tablets By Mouth Every 6 hours not to exceed 400 mg/day Allergies (Active and Proposed Allergies Only) Flovent (Severity: Unknown severity, Onset: Unknown) Reactions: chest pain Nuts (Severity: Unknown severity, Onset: Unknown) Reactions: anaphalaxis Current Labs: Last 24 Hours Basic Metabolic Panel: Hematology: Sodium: 139 mmol/L (01/12/23) Hgb: 8.8 Gm/dL (01/12/23) Potassium (POC): 4.6 mmol/L (01/12/23) Hemoglobin A1C (Monitoring): ------ Phosphorus: ------ WBC: 9.3 k/mm3 (01/12/23) Magnesium: ------ Platelets: 322 k/mm3 (01/12/23) BUN (POC) POC Cartridge: 13 mg/dL (01/12/23) INR Level: ------ Creatinine-Blood: 0.7 mg/dL (01/12/23) Creatinine Clearance: ------ Additional - Last 24 Hours Abs. NRBC: 0.0 k/mm3 (01/12/23) Anion Gap: 12 (01/12/23) Bicarbonate Level: 24 mmol/L (01/12/23) BUN: BUN (01/12/23) Chloride: 103 mmol/L (01/12/23) Creatinine, Blood: Creatinine, Blood (01/12/23) Est Creatinine Clearance: 87.74 (01/12/23) Estimated GFR Creatinine: 102 ML/MIN/1.73 M2 (01/12/23) Glucose, POC: 133 mg/dL (01/12/23) Hct: 30.1 % (01/12/23) MCH: 23.3 pg (01/12/23) MCHC: 29.2 g/dL (01/12/23) MCV: 79.8 femtoliters (01/12/23) MPV: 8.8 femtoliters (01/12/23) Nucleated RBC (Automated): 0.0 #/100 WBC'S (01/12/23) RBC: 3.77 m/mm3 (01/12/23) RDW-SD: 46.5 femtoliters (01/12/23) DVT prophylaxis ASA EC 325 mg po bid x 30 days Disposition: Anticipates being discharged today to home. Follow up at [facility] in 2 weeks, patient is aware of this. The patient has a Silverlon dressing in place. She may shower with it and the dressing can be discontinued on POD 7. Discharge Plan Discharge Disposition Discharge: home with VNA. Home Health Face to Face I certify that this patient is under my care and that I or an allowed non- physician practitioner working with me, had a [id number] encounter with the patient on this date: 01/13/2023. The encounter with the patient was in whole, or in part, for the following medical condition, whichis the primary reason for home health care: Osteoarthritis of hip. Physical Therapy: Functional mobility training, Home exercise program to strengthen, increase ROM, Falls prevention training. Occupational Therapy: ADL Management, Fall prevention training, Energy conservation. Homebound due to: Inability to leave home without assistance/supervision, Inability to ambulate without assistance, Pain, decreased strength, and endurance, Unsteady gait, Impaired transfers, Inability to negotiate stairs. Physician Signature: Hannah WILSON, Elias Yip Cardiology * Event Display: Cardiac Rhythm Strips Authored Date: * Event Display: Cardiac Rhythm Strips Authored Date: Hospital Progress note * Jessica KEENAN, Jennifer Araujo: PERFORM, SIGN, VERIFY Event Display: Progress Note Hospital Authored Date: Patient: RON GARCIA Age: 42 years Sex: Female : 1980 Associated Diagnoses: None Author: Jessica KEENAN, Jennifer Araujo Findings Problem Related to Alteration in Musculoskeletal : Alteration in Musculoskeletal Func/new 01/13/2023 11:00 EDT Alteration in Musculoskeletal Related to Mobility, Orthopedic Procedure, Total joint replacement, Other: L THR 01/[address] Young POD 2 Goals & Outcomes, Musculoskeletal Affected extremity will maintain color/motion/sensation, Pt able to perform ADL's to best of ability, Pt demonstrates precautions/exercise/ transfers per protocol, Pt will ambulate safely with assistive device, Pt will be free from complications of immobility, Pt will report acceptable level of comfort/pain relief Interventions, Musculoskeletal Monitor patients ambulation status, monitor Color/Motion/Sensation, Assist with repositioning, Encourage deep breathing & coughing exercises, Notify MD immediately if tissue perfusion deteriorates, Obtain assistive devices as needed, Teach & Encourage use of Incentive spirometer, Teach Pt/caregiver on ADL's & adaptive equipment, Teach Pt/caregiver on exercises, Teach pt/caregiver on use of pain scale, Teach Pt/caregiver complications of immobility, Teach Pt/caregiver techniques to increase mobility, Teach Pt/caregiver on safety precautions BH Goals/Interventions, Musculoskeletal Yes Musculoskeletal, Problem Start 01/11/2023 12:31 Reviewed Plan with, Musculoskeletal Patient Patient Progression, Musculoskeletal Pt progressing according to plan . Narrative/Incidental Patient reporting pain of 5/10 after a left THR POD 2. Medicated with oxycodone 10mg every 4 hours as needed for pain. Seen by PT/OT as planned, OOB with walker and 1 assist. ASA for DVT prophylaxis.A-block in place and total hip precuations maintained. Toelrating diabetic diet with sliding scale insulin administered per parameters. Bilateral compression boots applied while resting. Using incentive spirometer with cues. Encouraged not to get OOB without calling, call peters placed with in reach.. Evaluation Patient reporting pain of 4/10 currently. Silverlon dressing to left hip CDI. +pp, +cms, +d/p flexion- no numbness or tingling noted. Lung sounds clear, diminished in the bases, no CP or SOB noted reaching 1999 on incentive spirometer. Abdomen SNT, +bs, +flatus, no n/v noted. Last BM 01/09, medicated with milk of magnesia overnight and a suppository this AM to encourage a BM, patient voiding CYU as noted in flowsheet. Planning for discharge to home with VNA services today. See biophysical for complete assessment, . Discharge Information Case Management Discharge Plan : Case Management Discharge Plan Data 01/12/2023 17:19 EDT Discharge Level of Care at Discharge Not Done: Assessed, No Action Needed (Not Done) 01/11/2023 10:57 EDT Discharge Level of Care at Discharge Homehealth/VNA Discharge VNA/Hospice/Home Care [facility] [phone] Mode of Transportation Arranged car Name of Agency #1 [facility] Client Service Associate #1 Intake Service Categories #1 Occupational Therapy, Physical Therapy Service Comments #1 The VNA will call you to set up an appointment. Please call the agency with anyquestions [phone] Rehabilitation Discharge : Rehab Discharge Index 01/12/2023 8:51 EDT Walker: distance >50 01/11/2023 14:34 EDT Comments on treatment indicated ADL's, funct mob, safety, pt edu Full chart review completed Yes Hospital course See comment 01/11/2023 12:59 EDT Comments on treatment indicated 42 yo F s/p L ANGELO on 01/[address] Young. WBAT L LE +THPs. Skilled PT for therex, transfers, amb with RW, stairs. Rec home with services. Walker: distance 10-20 Distance pt will ambulate 100 ft with RW Full chart review completed Yes Hospital course Hospital course Other findings see comment Plan of care PT Gait training, Transfer training, Therapeutic exercise, Functional Activities, Balance training, Neuromuscular education * Elias Young MD: PERFORM, SIGN, VERIFY Event Display: Progress Note Hospital Authored Date: Patient: RON GARCIA Age: 42 years Sex: Female : 1980 Associated Diagnoses: None Author: Elias Young MD Ortho POD 2s/p Left ANGELO S: no c/o CP,SOB, N/V, +flatus, states pain controlled O: Vitals Temperature 97.8 (04:33) Systolic Blood Pressure 111 (04:33) Diastolic Blood Pressure 55 (04:33) Pulse 88 (04:33) SpO2 98 (04:33) Respiratory Rate 18 (04:33) Last 24 Hours Basic Metabolic Panel: Hematology: Sodium: 140 mmol/L (01/13/23) Hgb: 8.2 Gm/dL (01/13/23) Potassium (POC): 4.3 mmol/L (01/13/23) Hemoglobin A1C (Monitoring): ------ Phosphorus: ------ WBC: 6.4 k/mm3 (01/13/23) Magnesium: ------ Platelets: 301 k/mm3 (01/13/23) BUN (POC) POC Cartridge: 11 mg/dL (01/13/23) INR Level: ------ Creatinine-Blood: 0.8 mg/dL (01/13/23) Creatinine Clearance: ------ Additional - Last 24 Hours Abs. NRBC: 0.0 k/mm3 (01/13/23) Anion Gap: 8 (01/13/23) Bicarbonate Level: 28 mmol/L (01/13/23) BUN: BUN (01/13/23) Chloride: 104 mmol/L (01/13/23) Creatinine, Blood: Creatinine, Blood (01/13/23) Est Creatinine Clearance: 76.77 (01/13/23) Estimated GFR Creatinine: 97 ML/MIN/1.73 M2 (01/13/23) Glucose, POC: Glucose, POC (01/13/23) Hct: 27.1 % (01/13/23) MCH: 24.2 pg (01/13/23) MCHC: 30.3 g/dL (01/13/23) MCV: 79.9 femtoliters (01/13/23) MPV: 8.8 femtoliters (01/13/23) Nucleated RBC (Automated): 0.0 #/100 WBC'S (01/13/23) RBC: 3.39 m/mm3 (01/13/23) RDW-SD: 47.4 femtoliters (01/13/23) Surgical Pathology: Surgical Pathology (01/12/23) General: alert,lucid, in NAD Heart: RRR, normal S1S2 Lungs: CTAb Abdomen: obese, soft NT BS hypo active Neurovascular: calves soft NT, +DF/+PF Dressing: CDI A/P: 42 year old female with s/p Left ANGELO POD 2 Pain better controled on PO meds DVT prophylaxis: ASA WBAT/ PT/OT/Hip precautions Discharge home when cleared by PT Objective Physical exam Patient is: in no acute distress, alert, awake. Neck: Incision: clean/dry/intact. . Respiratory: CTA. Abdomen: Abdomen is soft. Neurologic: alert & oriented x 3. Skin: Incision/wound. . * Vladimir Joseph: MODIFY, SIGN, VERIFY, PERFORM, SIGN Event Display: Progress Note Hospital Authored Date: Patient: RON GARCIA Age: 42 years Sex: Female : 1980 Associated Diagnoses: None Author: Vladimir Joseph Findings Problem Related to Alteration in Comfort : Alteration in Comfort/new 01/12/2023 20:00 EDT Alteration in Comfort Related to Surgery, Other: LEFT TOTAL HIP REPLACEMENT DR YOUNG 01/11 Goals & Outcomes: Comfort Pt will report acceptable level of comfort & pain control, Pt will state importance of adhering to pain strategy regime, Pt will demonstrate necessary skills to manage pain, Non-verbal indicators will indicate comfort/pain control Interventions Implemented: Comfort Assess pain using appropriate pain scale/tools, Assess aggravating factors & prevent them accordingly, Assess alleviating factors & promote them accordingly Goals/Interventions, Comfort Yes Comfort, Problem Start 01/11/2023 20:00 Reviewed plan with, Comfort Patient Patient Progression, Comfort Pt progressing according to plan Comfort, Problem Ongoing Yes . Alteration in Musculoskeletal : Alteration in Musculoskeletal Func/new 01/12/2023 20:00 EDT Alteration in Musculoskeletal Related to Mobility, Orthopedic Procedure, Total joint replacement, Other: L THR 01/[address] Young Goals & Outcomes, Musculoskeletal Affected extremity will maintain color/motion/sensation, Pt able to perform ADL's to best of ability, Pt demonstrates precautions/exercise/ transfers per protocol, Pt will ambulate safely with assistive device, Pt will be free from complications of immobility, Pt will report acceptable level of comfort/pain relief Interventions, Musculoskeletal Monitor patients ambulation status, monitor Color/Motion/Sensation, Assist with repositioning, Encourage deep breathing & coughing exercises, Notify MD immediately if tissue perfusion deteriorates, Obtain assistive devices as needed, Teach & Encourage use of Incentive spirometer, Teach Pt/caregiver on ADL's & adaptive equipment, Teach Pt/caregiver on exercises, Teach pt/caregiver on use of pain scale, Teach Pt/caregiver complications of immobility, Teach Pt/caregiver techniques to increase mobility, Teach Pt/caregiver on safety precautions, Apply iceto injured extremity for first 48 hours, monitor CMS of injured extremity, Maintain proper alignment of injured extremity, Dimitris location of distal pulse, rajiv. if doppler used, Incision care as ordered, Assist pt out of bed keeping legs abducted at all times, Avoid extreme internal and/or external rotation, Maintain hip in abduction/neutral/slight ext. rotation, [place] Pt/caregiver to Total Hip Rep lacement protocol Goals/Interventions, Musculoskeletal Yes Musculoskeletal, Problem Start 01/11/2023 12:31 Reviewed Plan with, Musculoskeletal Patient Patient Progression, Musculoskeletal Pt progressing according to plan . Nursing Data Vital Signs : VITAL SIGNS SECTION 01/12/2023 19:54 EDT Early Warning Score 0.00 01/12/2023 19:54 EDT Temperature 98.1 DegF Temperature Route Oral Pulse Rate 90 bpm Respiratory Rate 20 br/min Systolic Blood Pressure 122 mm Hg Diastolic Blood Pressure 56 mm Hg Blood pressure sites Arm, right Mean Arterial Pressure 78 mm Hg Pulse Pressure 66 mm Hg Oxygen Saturation 99 % Mode of Delivery (Oxygen) Room air . Evaluation P: As per nursing care plan(s) listed above: I: See interventions listed in care plan above E: No major events overnight, patient remains A&Ox4, continues to deny any chest pain or SOB. LS remain diminished with faint wheezy auscultated in both lower lobes, saturating in the 90s on RA, neb treatment provided with positive effect. Highest pain rating reported overnight 12/22 to left hip, 5mg Oxycodone & PO Tylenol administered with positive effect. +CMS, +D/P, and +PP noted to both lower extremities. Silverlon dressing to left hip remains c/d/i. Good PO intake, denies any N/V, lightheadedness, or dizziness. Last BM 01/09, Colace & Senna administered, MoM also given. OOB with 1 assist using walker. Patient educated and encouraged to use IS and perform D/P exercises throughout shift. C-boots applied to both lower extremities, on ASA for DVT prophylaxis. Capnography refused overnight, patient education on the importance of using capnography and explained the risks of not using. BED alarm activated for safety. Fall prevention & safety education provided to patient.Patient educated on how to use call peters and instructed to not to get out of bed without calling for assistance first using call peters, patient verbally agreed. Bed is in a low-locked position. Call peters along with personal belongings are within patient reach. Will continue to monitor and report anychanges to MD.... Patient Care team information Care Team Personnel Name: Boston Grissom MD Position: S Physician - Primary Care Member Role: PCP Address: Address: [address] [place] [id number]- Care Team Related Persons Name: ANTWON GARCIA Address: home [address] [place] [address]
--- OUTSIDE RECORDS SUMMARY | 2023-11-29 09:31 | XMS_ITS | Continuity of Care Document ---
Author Organization [facility] Address [address] [place] [address]- Care Team Providers Care Beater Out Name Role Phone Jaciel WILSON, [place] Primary Care Physician [place] [facility]10[place] - 08/[place]/19 [facility] [address] [place] [address]- [facility] Attending Physician: Admtr, Ar8 Allergies, Adverse Reactions, Alerts Substance Reaction Severity Status Flovent Active Nuts anaphalaxis Active Immunizations Given and Recorded Vaccine Date Status Refusal Reason tetanus/diphtheria/pertussis, acel(Tdap) 02/18/17 Given influ virus vac, H1N1, inactive(oldterm) 1 05/06/09 Given influenza virus vaccine, inactivated 04/14/09 Give n Pneumococcal Poly (PPV23) (oldterm) 06/11/07 Given Tet/Diphth/Acel, Pertussis (oldterm) 2 12/25/06 Gi jennifer 1Admin Note: Manufactured by: [employer] 2Admin Note: [employer] Medications albuterol 0.083% inhalation solution 3 mL, Inhalation, Every 6 hours, PRN as needed for wheezing, # 25 each, 5 Refills, Maintenance Start Date: 08/04/10 Status: Ordered Breo Ellipta 100 mcg-25 mcg/inh inhalation powder 1 puffs, Inhalation, Daily, # 1 each, 11 Refills, Maintenance, 09/02/18 15:29:09 EST, Powder, 1 puffs Inhalation Daily Start Date: 09/02/18 Status: Ordered EpiPen 2-Gage 0.3 mg injectable kit See Instructions, Intramuscular Once, # 1 pack/packet, 0 Refills, Soft Stop, 05/08/17 14:16:26 Start Date: 05/08/17 Status: Ordered Mirena 52 mg intrauteral device 1 each = 52 mg, Vaginally, Once, # 1 each, 0 Refills, Soft Stop, 11/19/13 16:16:54, 1 each Vaginally Once Start Date: 11/19/13 Status: Ordered Multivitamin Daily, 0 Refills, Maintenance, 02/18/17 8:54:29 Start Date: 02/18/17 Status: Ordered ProAir HFA 90 mcg/inh inhalation aerosol with adapter 2, puffs, Inhalation, Every 4 hours, PRN, # 8.5 Gm, Refills 2, Tot. Refills 2, Maintenance, 08/28/17 16:19:47, Aerosol, Route to Pharmacy Electronically, [id number], [facility] [id number] Start Date: 08/28/17 Status: Ordered scopolamine 1.5 mg transdermal film, [...] 08/10/19 15:17:00 EST, Route to Pharmacy Electronically, [facility] #[id number], 165.5, cm, 08/10/19 14:42:00 EST, Height Start [...]
--- OUTSIDE RECORDS SUMMARY | 2023-11-29 09:31 | XMS_ITS | Continuity of Care Document ---
Author Organization [facility] Address [address], [address] [place] [address]- Care Team Providers Care Draw Furnace Tender Name Role Phone Boston Grissom MD Primary Care Physician Encounter [facility] Date(s): 09/28/20 - 01/05/21 [facility] [address] [place], [place] [address] Attending Physician: Not on Staff, Attending MD Referring Physician: Boston Grissom MD Allergies, [...] each, 5 Refills, Maintenance, 07/20/20 14:16:00 EST, [facility] #[id number], 165.5, cm, 07/19/20 18:29:00 EST, Height, 102.1, kg, 09/08/19 15:11:00 EST, Dry Weight Start Date: 07/20/20 Status: Ordered Breo Ellipta 100 mcg-25 mcg/inh inhalation powder 1 puffs, Inhalation, Daily, # 1 each, 11 Refills, Maintenance, 10/03/20 15:46:00 EDT, Powder, [id number], 1 puffs Inhalation Daily, 165.5, cm, 09/20/20 13:58:00 EST, Height, 102.1, kg, 09/08/19 15:11:00 EST, Dry Weight Start Date: 10/03/20 Status: Ordered cyclobenzaprine 5 mg oral tablet 1 tablet = 5 mg, By Mouth, 3 times a day, PRN Other, PRN for leg pain, # 30 tablet, 5 Refills, Maintenance, 03/30/20 16:16:00 EDT, [facility] #[id number], 165.5, cm, 09/08/19 15:08:00 EST, Height, 102.1, kg, 09/08/19 15:11:00 EST, Dry Weight Start Date: 03/30/20 Status: Ordered EpiPen 2-Gage 0.3 mg injectable kit See Instructions, Intramuscular Once, # 1 pack/packet, 0 Refills, Soft Stop, 07/18/20 15:15:00 EST,[facility] #[id number], 165.5, cm, 05/19/20 10:10:00 EST, Height, 102.1, [...] 16:16:00 EDT, Aerosol, Route to Pharmacy Electronically, [id number], [facility] #[id number], 165.5, cm, 09/08/19 15:0... Start Date: 03/30/20 Status: Ordered traZODone 50 mg oral tablet 50 mg, 1, tablet, By Mouth, Daily at bedtime, # 30 tablet, Refills 11, Tot. Refills 11, Maintenance, 08/10/19 15:17:00 EST, Route to Pharmacy Electronically, [facility] #[id number], 165.5, cm, 08/10/19 14:42:00 EST, Height Start [...]
--- OUTSIDE RECORDS SUMMARY | 2023-11-29 09:31 | XMS_ITS | Continuity of Care Document ---
Author Organization [facility] Adult Address [address] [place] [address]- Care Team Providers Care Border Patrol Officer Name Role Phone Boston Grissom MD Primary Care Physician Encounter [facility] Date(s): 07/04/23 - 11/01/23 [facility] [address] [place] [address]- Attending Physician: Boston Grissom MD Allergies, Adverse Reactions, Alerts Substance Reaction Severity Status Flovent chest pain Active Nuts anaphalaxis Active Immunizations Given and Recorded Vaccine Date Status Refusal Reason influenza virus vaccine, inactivated 07/02/22 Gustavo rded influenza virus vaccine, inactivated 1 09/25/21 Gi jennifer influenza virus vaccine, inactivated 04/14/09 Give n [id number] 12y+ bivalent booster vax 07/02/22 Recorded SARS-CoV-2 (COVID-19) mRNA BNT-162b2 vac 07/03/21 Recorded SARS-CoV-2 (COVID-19) mRNA-1273 vaccine 09/07/20 R ecorded SARS-CoV-2 (COVID-19) mRNA-1273 vaccine 08/10/20 R ecorded tetanus/diphtheria/pertussis, acel(Tdap) 02/18/17 Given influ virus vac, H1N1, inactive(oldterm) 2 05/06/09 Given Pneumococcal Poly (PPV23) (oldterm) 06/11/07 Given Tet/Diphth/Acel, Pertussis (oldterm) 3 12/25/06 Gi jennifer 1Result Comment: [facility]:[id number] 2Admin Note: Manufactured by: [employer] 3Admin Note: SANOFI PASTEUR Medications [...] 8.5 Gm, 5 Refills, 03/12/23 10:03:00 EDT, [facility] #[id number], 16, 2 puffs Inhalation Every 4 hours,PRN: [...] 0 Refills, Maintenance, 07/10/23 16:07:00 EST, Capsule, [facility] #[id number], Partial fill upon patient request if the prescription is for a schedule II opi... Start Date: 07/10/23 Status: Ordered Breo Ellipta 100 mcg-25 mcg/inh inhalation powder 1 puffs, Inhalation, Daily, # 3 each, 3 Refills, Maintenance, 03/22/23 13:52:00 EDT, [facility] #[id number], 1 puffs Inhalation Daily, 162, cm, 01/13/23 7:02:00 EDT, Height, 115.9, kg, 01/11/23 12:29:00 EDT, Dry Weight Start Date: 03/22/23 Status: Ordered Breo Ellipta 100 mcg-25 mcg/inh inhalation powder 1 puffs, Inhalation, Daily, # 180 each, 3 Refills, Maintenance, 07/18/23 18:06:00 EST, [facility], 90, Brand name medically necessary - no substitutions, 1 puffs Inhalation Daily, 163, cm, 07/10/23 15:31:00 EST, Height, 127.5, kg, 12... Start Date: 07/18/23 Status: Ordered budesonide-formoterol 160 mcg-4.5 mcg/inh inhalation aerosol with adapter 2, puffs, Inhalation, 2 times a day, to replace Breo, # 1 each, Refills 11, Tot. Refills 11, Maintenance, 07/17/23 8:19:00 EST, Route to Pharmacy Electronically, [id number],[facility] #[id number], 163, cm, 07/10/23 15:3... Start Date: 07/17/23 [...] pack/packet, 0 Refills, Soft Stop, 07/18/20 15:15:00 EST,[facility] #[id number], 165.5, cm, 05/19/20 10:10:00 EST, Height, 102.1, [...] Team Personnel Name: Boston Grissom MD Position: [facility] Physician - Primary Care Member Role: PCP Address: Address: [address] [place] [address]- Care Team Related Persons Name: ANTWON GARCIA Address: home [address] [place] [address]
--- OUTSIDE RECORDS SUMMARY | 2023-11-29 09:31 | XMS_ITS | Continuity of Care Document ---
Author Organization [facility] ter Address [address] [place] [address]- Care Team Providers Care Rn Ortho Name Role Phone Boston Grissom MD Primary Care Physician [phone] Encounter [place] Date(s): 11/29/20 - 01/24/[address] [address] Attending Physician: Boston Grissom MD Admitting Physician: Boston Grissom MD Referring Physician: Boston Grissom MD Allergies, [...] each, 5 Refills, Maintenance, 07/20/20 14:16:00 EST, [facility] #[id number], 165.5, cm, 07/19/20 18:29:00 EST, Height, 102.1, kg, 09/08/19 15:11:00 EST, Dry Weight Start Date: 07/20/20 Status: Ordered Breo Ellipta 100 mcg-25 mcg/inh inhalation powder 1 puffs, Inhalation, Daily, # 1 each, 11 Refills, Maintenance, 10/03/20 15:46:00 EDT, Powder, [facility] #[id number], 1 puffs Inhalation Daily, 165.5, cm, 09/20/20 13:58:00 EST, Height, 102.1, kg, 09/08/19 15:11:00 EST, Dry Weight Start Date: 10/03/20 Status: Ordered cyclobenzaprine 5 mg oral tablet 1 tablet = 5 mg, By Mouth, 3 times a day, PRN Other, PRN for leg pain, # 30 tablet, 5 Refills, Maintenance, 03/30/20 16:16:00 EDT, [facility] #[id number], 165.5, cm, 09/08/19 15:08:00 EST, Height, 102.1, kg, 09/08/19 15:11:00 EST, Dry Weight Start Date: 03/30/20 Status: Ordered EpiPen 2-Gage 0.3 mg injectable kit See Instructions, Intramuscular Once, # 1 pack/packet, 0 Refills, Soft Stop, 07/18/20 15:15:00 EST,[facility] #[id number], 165.5, cm, 05/19/20 10:10:00 EST, Height, 102.1, [...] 16:16:00 EDT, Aerosol, Route to Pharmacy Electronically, [id number], [facility][id number], 165.5, cm, 09/08/19 15:0... Start Date: 03/30/20 Status: Ordered traZODone 50 mg oral tablet 50 mg, 1, tablet, By Mouth, Daily at bedtime, # 30 tablet, Refills 11, Tot. Refills 11, Maintenance, 08/10/19 15:17:00 EST, Route to Pharmacy Electronically, [facility] #[id number], 165.5, cm, 08/10/19 14:42:00 EST, Height Start [...]
--- OUTSIDE RECORDS SUMMARY | 2023-11-29 09:31 | XMS_ITS | Continuity of Care Document ---
Author Organization [facility] Adult Address [address] [place] [address]- Care Team Providers Care Principal Network Engineer Name Role Phone Jaciel WILSON, Boston Primary Care Physician Encounter [facility] Date(s): 04/18/22 - 05/18/22 [facility] [address] [place] [address]- Allergies, Adverse Reactions, Alerts Substance Reaction Severity [...] (oldterm) 3 12/25/06 Gi jennifer 1Result Comment: [facility]:[id number] 2Admin Note: Manufactured by: [employer] 3Admin Note: SANOFI PASTEUR Medications Albuterol (Eqv-ProAir HFA) 90 mcg/inh inhalation aerosol 2 puffs, Inhalation, Every 4 hours, PRN NEEDED FOR WHEEZING, # 8.5 Gm, 5 Refills, 04/25/22 9:56:00 EDT, [facility] #[id number], 16, 2 puffs Inhalation Every 4 hours,PRN: NEEDED FOR WHEEZING, 162.56, cm, 04/19/22 9:56:00 EDT, Height, 112.1, k... Start Date: 04/25/22 Status: Ordered albuterol 0.083% inhalation solution 3 mL = 2.5 mg, Inhalation, Every 6 hours, PRN for wheezing, # 60 each, 1 Refills, Maintenance, 02/26/22 9:27:00 EDT, Solution, [facility] #77818, Partial fill upon patient request if the prescription is for a schedule II opioid drug., 162.56... Start Date: 02/26/22 Status: Ordered Breo Ellipta 100 mcg-25 mcg/inh inhalation powder 1 puffs, Inhalation, Daily, # 3 each, 3 Refills, 02/16/22 12:14:00 EDT, [facility] #50132, no substitutuion - brand name necessary, 1 puffs Inhalation Daily, 162.56, cm, 02/02/22 15:09:00 EDT, Height, 112.1, kg, 02/02/22 15:11:00 EDT, Dry We... Start Date: 02/16/22 Status: Ordered EpiPen 2-Gage 0.3 mg injectable kit See Instructions, Intramuscular Once, # 1 pack/packet, 0 Refills, Soft Stop, 07/18/20 15:15:00 EST,[facility] #74250, 165.5, cm, 05/19/20 10:10:00 EST, Height, 102.1, kg, 09/08/19 15:11:00EST, Dry Weight Start Date: 07/18/20 Status: Ordered escitalopram 10 mg oral tablet 1.5 tablet = 15 mg, By Mouth, Daily at bedtime, dose increase, # 45 tablet, 11 Refills, Maintenance, 11/06/21 15:12:00 EDT, [facility] #01288, Partial fill upon patient request if the [...] tablet, 1 Refills,Maintenance, 02/16/22 12:16:00 EDT, Tablet, [facility] #35617, 162.56, cm, 02/02/22 15:09:00 EDT, Height, 112.1, [...] Personnel Name: Boston Grissom MD Address: Address: [address] [place], [place] [address]
--- OUTSIDE RECORDS SUMMARY | 2023-11-29 09:31 | XMS_ITS | Continuity of Care Document ---
Author Organization [facility] Address Unknown Care Team Providers Care Livestock Counter Name Role Phone Boston Grissom MD Primary Care Physician Encounter [facility] Date(s): 10/04/21 - 10/11/21 [facility] Attending Physician: Knee RD, [...] (oldterm) 3 12/25/06 Gi jennifer 1Result Comment: [facility]:[id number] 2Admin Note: Manufactured by: [employer] 3Admin Note: SANOFI PASTEUR Medications Albuterol (Eqv-ProAir HFA) 90 mcg/inh inhalation aerosol 2 puffs, Inhalation, Every 4 hours, PRN NEEDED FOR WHEEZING, # 8.5 Gm, 2 Refills, [facility] #[id number], 16, INHALE 2 PUFFS BY MOUTH EVERY 4 HOURS NEEDED FOR WHEEZING, 163, cm, 06/21/21 8:48:00 EST, Height, 109, kg, 02/01/21 19:07:00 EDT,... Start Date: 07/03/21 Status: Ordered Breo Ellipta 100 mcg-25 mcg/inh inhalation powder 1 puffs, Inhalation, Daily, # 60 each, 0 Refills, [facility] #85818, 30, INHALE 1 PUFF BYMOUTH DAILY, 162.56, cm, 10/03/21 13:50:00 EDT, Height, 109.5, kg, 10/03/21 13:50:00 EDT, Dry Weight Start Date: 10/09/21 Status: Ordered EpiPen 2-Gage 0.3 mg injectable kit See Instructions, Intramuscular Once, # 1 pack/packet, 0 Refills, Soft Stop, 07/18/20 15:15:00 EST,[facility] #05131, 165.5, cm, 05/19/20 10:10:00 EST, Height, 102.1, kg, 09/08/19 15:11:00EST, Dry Weight Start Date: 07/18/20 Status: Ordered escitalopram 10 mg oral tablet 1 tablet = 10 mg, By Mouth, Daily at bedtime, # 30 tablet, 11 Refills, Maintenance, 09/25/21 14:47:00 EDT, [facility] #[id number], Partial fill upon patient request if the [...]
--- OUTSIDE RECORDS SUMMARY | 2023-11-29 09:31 | XMS_ITS | Continuity of Care Document ---
Author Organization [facility] ter Address [address] [place] [address]- Care Team Providers Care Waste Water Or Water Plant Operator Name Role Phone Boston Grissom MD Primary Care Physician Encounter [facility] Date(s): 07/04/23 - 07/04/[address] [address]- Discharge Disposition: A-D/C Home Attending Physician: Brynn Walters MD Admitting Physician: Brynn Walters MD Referring Physician: Not on Staff, Referring MD Allergies, Adverse Reactions, Alerts Substance Reaction Severity Status Flovent chest pain Active Nuts anaphalaxis Active Immunizations Given and Recorded Vaccine Date Status Refusal Reason influenza virus vaccine, inactivated 07/02/22 Gustavo rded influenza virus vaccine, inactivated 1 09/25/21 Gi jennifer influenza virus vaccine, inactivated 04/14/09 Give n [id number] 12y+ bivalent booster vax 07/02/22 Recorded SARS-CoV-2 (COVID-19) mRNA BNT-162b2 vac 07/03/21 Recorded SARS-CoV-2 (COVID-19) mRNA-1273 vaccine 09/07/20 R ecorded SARS-CoV-2 (COVID-19) mRNA-1273 vaccine 08/10/20 R ecorded tetanus/diphtheria/pertussis, acel(Tdap) 02/18/17 Given influ virus vac, H1N1, inactive(oldterm) 2 05/06/09 Given Pneumococcal Poly (PPV23) (oldterm) 06/11/07 Given Tet/Diphth/Acel, Pertussis (oldterm) 3 12/25/06 Gi jennifer 1Result Comment: [facility]:[id number] 2Admin Note: Manufactured by: [employer]. 3Admin Note: SANOFI PASTEUR Medications acetaminophen 325 mg oral tablet 650 mg, By Mouth, Every 6 hours, May take OTC not to exceed 3000 mg/day, Refills 0, Maintenance, 01/12/23 9:15:00 EDT, Partial fill upon patient request if the prescription is for a schedule II opioid drug. Start Date: 01/12/23 Status: Ordered acetaminophen 500 mg oral tablet 1 tablet = 500 mg, By Mouth, Every 4 hours, PRN as needed for pain, for 7 days, # 50 tablet, 0 Refills, Acute 07/11/23 17:42:00 EST, 07/04/23 17:42:00 EST, Tablet, [facility] #[id number], Partial fill upon patient request if the prescription is f... Start Date: 07/04/23 Stop Date: 07/11/23 Status: Ordered Albuterol (Eqv-ProAir HFA) 90 mcg/inh inhalation aerosol 2 puffs, Inhalation, Every 4 hours, PRN NEEDED FOR WHEEZING, # 8.5 Gm, 5 Refills, 03/12/23 10:03:00 EDT, [facility] #[id number], 16, 2 puffs Inhalation Every 4 hours,PRN: [...] each, 3 Refills, Maintenance, 01/28/23 9:16:00 EDT, [facility] #[id number], 90, INHALE 1 PUFF BY MOUTH DAILY, 162, cm, 01/13/23 7:02:00 EDT, Height, 115.9, kg, 01/11/23 12:29:00 EDT, Dry Weight Start Date: 01/28/23 Status: Ordered Breo Ellipta 100 mcg-25 mcg/inh inhalation powder 1 puffs, Inhalation, Daily, # 3 each, 3 Refills, Maintenance, 03/22/23 13:52:00 EDT, [facility] #[id number], 1 puffs Inhalation Daily, 162, cm, 01/13/23 [...] pack/packet, 0 Refills, Soft Stop, 07/18/20 15:15:00 EST,[facility] #[id number], 165.5, cm, 05/19/20 10:10:00 EST, Height, 102.1, [...] EC Tablet Start Date: 01/12/23 Status: Ordered predniSONE 20 mg oral tablet 3 tablet = 60 mg, By Mouth, Daily, for 4 days, # 12 tablet, 0 Refills, Acute 07/09/23 8:00:00 EST, 07/05/23 8:00:00 EST, Tablet, [facility] #[id number], Partial fill upon patient request if the prescription is for a schedule II opioid drug., 163,... Start Date: 07/05/23 Stop Date: 07/09/23 Status: Ordered senna 187 mg oral tablet [...] Exam Date Time Procedure Performing Provider Status 07/04/23 4:39 PM Chest 2 Views Frontal and Lat Janet Raines (Verified) Notes: (Chest 2 Views Frontal and Lat) Reason For Exam: Shortness of Breath RESULT: Chest 2 Views Frontal and Lat Chest 2 Views Frontal and Lat Reason: Shortness of Breath; Clinical Question(s): CHF COMPARISON: Multiple prior chest radiographs with the most recent dated 05/19/2021. FINDINGS: LINES AND TUBES: None. LUNGS AND PLEURA: Clear lungs. Normal pulmonary vascularity. No pleural effusion. No pneumothorax. HEART, MEDIASTINUM AND DAMEON: Heart is normal in size. Normal mediastinal and hilar contour. BONES AND SOFT TISSUES: No acute abnormality. IMPRESSION: No acute abnormality. WSN: [id number] Ordering Physician: Brynn Walters Dictated By: Otilio Stewart MD, V Dictated Date/Time: 07/04/23 4:41 pm Reviewed By: Otilio Stewart MD, V Signed By: Otilio Stewart MD, V Signed Date/Time: 07/04/23 4:41 pm Transcribed By: AARON Transcribed Date/Time: 07/04/23 4:41 pm Vital Signs Most recent to oldest [Reference Range]: 1 2 3 Height 163 cm (07/04/23 5:00 PM) 163 cm (07/04/23 11:25 AM) Oxygen Saturation [94-100 %] 99 % (07/04/23 5:00 PM) 98 % (07/04/23 4:18 PM) 98 % (07/04/23 1:34 PM) Pulse Rate [55-90 bpm] 88 bpm (07/04/23 5:00 PM) 91 bpm *H* (07/04/23 4:18 PM) 99 bpm *H* (07/04/23 1:34 PM) Blood Pressure [90-138/55-84 mm Hg] 122/64mm Hg (07/04/23 5:00 PM) 112/59mm Hg (07/04/23 4:18 PM) 127/90mm Hg (07/04/23 1:34 PM) Respiratory Rate [16-30 br/min] 18 br/min (07/04/23 5:00 PM) 16 br/min (07/04/23 4:18 PM) 18 br/min (07/04/23 1:34 PM) Temperature [96.8-100.4 DegF] 98.4 DegF (07/04/23 5:00 PM) 98.6 DegF (07/04/23 4:18 PM) 98.9 DegF (07/04/23 1:34 PM) Mode of Delivery (Oxygen) Room air (07/04/23 5:00 PM) Room air (07/04/23 4:18 PM) Room air (07/04/23 1:34 PM) Blood pressure sites Arm, right (07/04/23 5:00 PM) Arm, left (07/04/23 4:18 PM) Arm, right (07/04/23 1:34 PM) Temperature Route Oral (07/04/23 5:00 PM) Oral (07/04/23 4:18 PM) Oral (07/04/23 1:34 PM) Dry Weight 127.5 kg (07/04/23 5:00 PM) 127.5 kg (07/04/23 11:25 AM) Weight Obtained Via Patient/family state d (07/04/23 11:25 AM) Dry Weight Obtained Via Patient/family s tated (07/04/23 11:25 AM) Social History Social History Type Response Smoking Status Former smoker, quit more than 30 days ago entered on: 02/01/21 Sex EKG study * Event Display: EKG Authored Date: Note * Antonio Carrillo: PERFORM Event Display: Patient Education Leaflets Authored Date: Viral Syndrome (Adult) ?? [id number] Viral Syndrome (Adult) A viral illness may cause many symptoms such as fever. Other symptoms depend on the part of the body that the virus affects. If it settles in your nose, throat, and lungs, it may cause cough, sore throat, congestion, runny nose, headache, earache and other ear symptoms, or shortness of breath. If it settles in your stomach and intestinal tract, it may cause nausea, vomiting, cramping, and diarrhea. Sometimes it causes generalized symptoms like aching all over, feeling tired, loss of energy, or loss of appetite. A viral illness often lasts anywhere from a few days to a few weeks. But sometimes it lasts longer.In some cases, a more serious infection can look like a viral syndrome in the first few days of theillness. You may need another exam and additional tests to know the difference. Watch for the warning signs listed below for when to get medical advice. Home care Follow these guidelines for taking care of yourself at home: ??? If symptoms are severe, rest at home for the first 2 to 3 days. ??? Stay away from cigarette smoke - both your smoke and the smoke from others. ??? You may use wehd-blj-ygpeufe??acetaminophen or ibuprofen for fever, muscle aching, and headache, unless another medicine was prescribed for this. Antibiotics aren't used to treat viral infections. If you have chronic liver or kidney disease or ever had a stomach ulcer or gastrointestinal bleeding, talk with your healthcare provider before using these medicines. No one who is younger than 18 and ill with a fever should take aspirin. It may cause severe disease or . ??? Your appetite may be poor, so a light diet is fine. Prevent dehydration by drinking 8 to 12, 8-ounce glassesof fluids each day. This may include water; orange juice; lemonade; apple, grape, and cranberry juice; clear fruit drinks; electrolyte replacement and sports drinks; and decaffeinated teas and coffee. If you've been diagnosed with a kidney disease, ask your healthcare provider how much and what types of fluids you should drink to prevent dehydration. If you have kidney disease, drinking too much fluid can cause it build up in your body and be dangerous to your health. ??? Vovh-xdw-pyzhefu remedies won't shorten the length of the illness. But they may be helpful for symptoms such as cough, sore throat, nasal and sinus congestion, or diarrhea. Don't use decongestants if you have high blood pressure. ?? Follow-up care Follow up with your healthcare provider if you don't get better over the next week. ?? Call 911 Call 911 if any of these occur: ??? Convulsion ??? Feeling weak, dizzy, or like you are going to faint ??? Chest pain, or more than mild shortness of breath ?? When to get medical advice Call your healthcare provider right away if any of these occur: ??? Cough with lots of colored sputum (mucus) or blood in your sputum ??? Chest pain, shortness of breath, wheezing, or trouble breathing ??? Severe headache; face, neck, or ear pain ??? Severe, constant pain in the lower right side ofyour belly (abdominal) ??? Continued vomiting (can???t keep liquids down) ??? Frequent diarrhea (more than 5 times a day), or blood (red or black color) or mucus in diarrhea ??? Feeling weak, dizzy, or like you are going to faint ??? Extreme thirst ??? Fever of 100.4??F (38??C) or higher, or as directed by your provider ?? Last Reviewed Date: 2021 ?? [employer]. All rights reserved. This information is not intended as a substitute for professional medical care. Always follow your healthcare professional's instructions. ?? * Antonio Carrillo: PERFORM Event Display: Patient Education Leaflets Authored Date: [id number] Asthma (Adult) ?? [id number] Asthma (Adult) Asthma is a disease where the medium and??small air passages in the lung go into spasm. This limitsair flow. Inflammation and swelling of the airways cause more blockage. During an acute asthma attack, these things cause trouble breathing, wheezing, coughing, and chest tightness. An asthma attack can be triggered by many things. Common triggers include infections such as the common cold, bronchitis, and pneumonia. Irritants such as smoke or pollutants in the air, very cold air, strong emotions, and exercise can also trigger an attack. In??many adults with asthma, allergies to??dust, mold, pollen, and animal dander can cause an asthma attack. Skipping doses of daily asthmamedicine can also bring on an asthma attack. Asthma can be controlled using the??correct medicines prescribed by your healthcare provider. You can also control it by staying away from known triggers including allergens and irritants. Home care ??? Take prescribed medicine exactly as advised. Ask your healthcare team for help if youhave questions about how to use your inhaler or nebulizer. ??? Call your provider or get medical care right away if you need quick-relief medicine such as from an inhaler or aerosol breathing machine(nebulizer) more often than prescribed.. ??? If you are prescribed an antibiotic or the steroid prednisone, take all of the medicine as prescribed. Keep taking it even if you are feeling better aftera few days. ??? Don't smoke. Ask your provider for resource, such as organizations and websites to help you quit. Stay away from the smoke of others. Don't let anyone smoke in your home, in your car,or around you. Also don't use e-cigarettes. ??? Some people with asthma find their symptoms get worse when they take aspirin and nonsteroidal anti-inflammatory drugs (NSAIDs) or fever-reducing medicines such as ibuprofen and naproxen. Talk with your provider if you think this may apply to you. ??? Stay away from your asthma triggers. ?? Follow-up care Follow up with your healthcare provider, or as advised. Always bring all of your current medicines to any appointments with your provider. Also bring a complete list of medicines, even??those you take for other conditions. Bring your Asthma Action Plan to all appointments. If you don't have one, talk with your provider about making your own Asthma Action Plan. Get the COVID-19 vaccine, pneumonia (pneumococcal)??vaccine, and yearly flu shot (every fall). Ask your provider about this. ?? When to get medical care Call your healthcare provider right away if any of these occur:? More wheezing or shortness ofbreath ??? Waking up at night because of asthma symptoms ??? Need to use your quick-relief inhaler more often than normal without relief ??? Fever of 100.4??F (38??C) or higher, or as advised by yourprovider ??? Coughing up lots of dark-colored or bloody sputum (mucus) ??? Chest pain with each breath ??? If you use a peak flow meter as part of an Asthma Action Plan, and you are still in the yellow zone (50% to 79% of personal best) 15 minutes after using quick-relief inhaler medicine. ?? Call 911 Call 911 right away if any of these occur: ??? Trouble walking or talking because you're short of breath ??? If you use a peak flow meter as part of an Asthma Action Plan, and??you are still in the red zone (less than 50% of personal best) 15 minutes after using quick-relief inhaler medicine ??? Lips or fingernails turn may, purple, or blue ??? Feeling faint or loss of consciousness ?? Last Reviewed Date: 2021 ?? [id number] [employer]. All rights reserved. This information is not intended as a substitute for professional medical care. Always follow your healthcare professional's instructions. ?? Patient Care team information Care Team Personnel Name: Boston Grissom MD Position: [facility] Physician - Primary Care Member Role: PCP Address: Address: [address] [place] [address]- Name: Antonio Carrillo Position: [facility] Associate Professional Member Role: ED Physician Freight Inspector Address: Address: [address] [place] [address]- Name: Brynn Walters MD Position: [facility] ED Medicine MD Member Role: Admitting Physician Address: Address: [address] [place] [id number] Name: Nora Kwan RN Position: [facility] ED RN W/OE and Tasks Member Role: Research Name: Mar Gallo Position: [facility] ED TA [facility] Member Role: Patient Care Provider Care Team Related Persons Name: ANTWON GARCIA Address: home [address] [place] [address]
--- OUTSIDE RECORDS SUMMARY | 2023-11-29 09:31 | XMS_ITS | Continuity of Care Document ---
Author Organization [facility] Address Unknown Care Team Providers Care Car Pusher Name Role Phone Boston Grissom MD Primary Care Physician [phone] [place] [facility] [place] 01/20/22 [facility] Allergies, Adverse Reactions, Alerts Substance Reaction [...] (oldterm) 3 12/25/06 Gi jennifer 1Result Comment: [facility]:[id number] 2Admin Note: Manufactured by: [employer] 3Admin Note: SANOFI PASTEUR Medications Albuterol (Eqv-ProAir HFA) 90 mcg/inh inhalation aerosol 2 puffs, Inhalation, Every 4 hours, PRN NEEDED FOR WHEEZING, # 8.5 Gm, 2 Refills, [facility] #47142, 16, INHALE 2 PUFFS BY MOUTH EVERY 4 HOURS NEEDED FOR WHEEZING, 163, cm, 06/21/21 8:48:00 EST, Height, 109, kg, 02/01/21 19:07:00 EDT,... Start Date: 07/03/21 Status: Ordered Breo Ellipta 100 mcg-25 mcg/inh inhalation powder 1 puffs, Inhalation, Daily, # 3 each, 2 Refills, 10/20/21 9:30:00 EDT, [facility] #24234,1 puffs Inhalation Daily, 162.56, cm, 10/09/21 13:19:00 EDT, Height, 109.5, kg, 10/03/21 13:50:00 EDT, Dry Weight Start Date: 10/20/21 Status: Ordered EpiPen 2-Gage 0.3 mg injectable kit See Instructions, Intramuscular Once, # 1 pack/packet, 0 Refills, Soft Stop, 07/18/20 15:15:00 EST,[facility] #98906, 165.5, cm, 05/19/20 10:10:00 EST, Height, 102.1, kg, 09/08/19 15:11:00EST, Dry Weight Start Date: 07/18/20 Status: Ordered escitalopram 10 mg oral tablet 1.5 tablet = 15 mg, By Mouth, Daily at bedtime, dose increase, # 45 tablet, 11 Refills, Maintenance, 11/06/21 15:12:00 EDT, [facility] #[id number], Partial fill upon patient request if the [...]
--- OUTSIDE RECORDS SUMMARY | 2023-11-29 09:31 | XMS_ITS | Continuity of Care Document ---
Author Organization [facility] Address [address] [place] [address]- Care Team Providers Care Statistical Assistant Name Role Phone Boston Grissom MD Primary Care Physician [phone] Encounter [facility] [place] Date(s): 02/16/22 - 03/18/22 [facility] [address] [place] [address]- Allergies, Adverse Reactions, Alerts Substance Reaction Severity [...] (oldterm) 3 12/25/06 Gi jennifer 1Result Comment: [facility]:04173-381-86 2Admin Note: Manufactured by: [employer] 3Admin Note: SANOFI PASTEUR Medications Albuterol (Eqv-ProAir HFA) 90 mcg/inh inhalation aerosol 2 puffs, Inhalation, Every 4 hours, PRN NEEDED FOR WHEEZING, # 8.5 Gm, 2 Refills, [facility] #51517, 16, INHALE 2 PUFFS BY MOUTH EVERY 4 HOURS NEEDED FOR WHEEZING, 163, cm, 06/21/21 8:48:00 EST, Height, 109, kg, 02/01/21 19:07:00 EDT,... Start Date: 07/03/21 Status: Ordered albuterol 0.083% inhalation solution 3 mL = 2.5 mg, Inhalation, Every 6 hours, PRN for wheezing, # 60 each, 1 Refills, Maintenance, 02/26/22 9:27:00 EDT, Solution, [facility] #47672, Partial fill upon patient request if the prescription is for a schedule II opioid drug., 162.56... Start Date: 02/26/22 Status: Ordered Breo Ellipta 100 mcg-25 mcg/inh inhalation powder 1 puffs, Inhalation, Daily, # 3 each, 3 Refills, 02/16/22 12:14:00 EDT, [facility] #05183, no substitutuion - brand name necessary, 1 puffs Inhalation Daily, 162.56, cm, 02/02/22 15:09:00 EDT, Height, 112.1, kg, 02/02/22 15:11:00 EDT, Dry We... Start Date: 02/16/22 Status: Ordered EpiPen 2-Gage 0.3 mg injectable kit See Instructions, Intramuscular Once, # 1 pack/packet, 0 Refills, Soft Stop, 07/18/20 15:15:00 EST,[facility] #05334, 165.5, cm, 05/19/20 10:10:00 EST, Height, 102.1, kg, 09/08/19 15:11:00EST, Dry Weight Start Date: 07/18/20 Status: Ordered escitalopram 10 mg oral tablet 1.5 tablet = 15 mg, By Mouth, Daily at bedtime, dose increase, # 45 tablet, 11 Refills, Maintenance, 11/06/21 15:12:00 EDT, [facility] #38443, Partial fill upon patient request if the [...] tablet, 1 Refills,Maintenance, 02/16/22 12:16:00 EDT, Tablet, [facility] #04483, 162.56, cm, 02/02/22 15:09:00 EDT, Height, 112.1, [...] 30 days ago entered on: 02/01/21 Sex Care Team Personnel Name: Boston Grissom MD Address: [address] [place] [address] [place], [place] [address]
--- OUTSIDE RECORDS SUMMARY | 2023-11-29 09:31 | XMS_ITS | Continuity of Care Document ---
Author Organization [facility] ter Address [address] [place] [address]- Care Team Providers Care Tree Feller Name Role Phone Boston Grissom MD Primary Care Physician Encounter [facility] Date(s): 12/14/22 - 01/13/[address] [address] Attending Physician: Scott Murcia Admitting Physician: AdmScott diggs Referring Physician: AdmtrScott Allergies, Adverse Reactions, Alerts Substance Reaction Severity Status Flovent chest pain Active Nuts anaphalaxis Active Immunizations Given and Recorded Vaccine Date Status Refusal Reason influenza virus vaccine, inactivated 07/02/22 Gustavo rded influenza virus vaccine, inactivated 1 09/25/21 Gi jennifer influenza virus vaccine, inactivated 04/14/09 Give n [id number] 12y+ bivalent booster vax 07/02/22 Recorded SARS-CoV-2 (COVID-19) mRNA BNT-162b2 vac 07/03/21 Recorded SARS-CoV-2 (COVID-19) mRNA-1273 vaccine 09/07/20 R ecorded SARS-CoV-2 (COVID-19) mRNA-1273 vaccine 08/10/20 R ecorded tetanus/diphtheria/pertussis, acel(Tdap) 02/18/17 Given influ virus vac, H1N1, inactive(oldterm) 2 05/06/09 Given Pneumococcal Poly (PPV23) (oldterm) 06/11/07 Given Tet/Diphth/Acel, Pertussis (oldterm) 3 12/25/06 Gi jennifer 1Result Comment: [facility]:[id number] 2Admin Note: Manufactured by: [employer]. 3Admin Note: SANOFI PASTEUR Medications acetaminophen 325 [...] 8.5 Gm, 5 Refills, 12/25/22 6:12:00 EDT, [facility] #[id number], 16, 2 puffs Inhalation Every 4 hours,PRN: [...] 3 each, 3 Refills, 02/16/22 12:14:00 EDT, [facility] #03988, no substitutuion - brand name necessary, 1 [...] pack/packet, 0 Refills, Soft Stop, 07/18/20 15:15:00 EST,[facility] #51928, 165.5, cm, 05/19/20 10:10:00 EST, Height, 102.1, [...] Replace Required Details, Route to Pharmacy Electronically, [facility]... Start Date: 01/12/23 Stop Date: 01/19/23 Status: [...] 01/19/23 8:55:00 EDT, 01/12/23 8:54:00 EDT, Tablet, [facility], Partial fill upon patient request [...] Boston Grissom MD Position: [facility] Physician - Primary Care Member Role: PCP Address: Address: [address] [place] [address]- Care Team Related Persons Name: ANTWON GARCIA Address: home [address] [place] [address]
--- OUTSIDE RECORDS SUMMARY | 2023-11-29 09:31 | XMS_ITS | Continuity of Care Document ---
Author Organization [facility] Address Unknown Care Team Providers Care Technology Education Instructor Name Role Phone Boston Grissom MD Primary Care Physician Encounter [facility] [place] Date(s): 11/06/21 - 11/13/21 [facility] Encounter Diagnosis Adjustment disorder(Discharge Diagnosis) - 11/06/21 Attending Physician: Boston Grissom MD Allergies, Adverse [...] 3 12/25/06 Gi jennifer 1Result Comment: [facility]:[id number] 2Admin Note: Manufactured by: [employer] 3Admin Note: SANOFI PASTEUR Medications Albuterol (Eqv-ProAir HFA) 90 mcg/inh inhalation aerosol 2 puffs, Inhalation, Every 4 hours, PRN NEEDED FOR WHEEZING, # 8.5 Gm, 2 Refills, [facility] #46647, 16, INHALE 2 PUFFS BY MOUTH EVERY 4 HOURS NEEDED FOR WHEEZING, 163, cm, 06/21/21 8:48:00 EST, Height, 109, kg, 02/01/21 19:07:00 EDT,... Start Date: 07/03/21 Status: Ordered Breo Ellipta 100 mcg-25 mcg/inh inhalation powder 1 puffs, Inhalation, Daily, # 3 each, 2 Refills, 10/20/21 9:30:00 EDT, [facility] #89250,1 puffs Inhalation Daily, 162.56, cm, 10/09/21 13:19:00 EDT, Height, 109.5, kg, 10/03/21 13:50:00 EDT, Dry Weight Start Date: 10/20/21 Status: Ordered EpiPen 2-Gage 0.3 mg injectable kit See Instructions, Intramuscular Once, # 1 pack/packet, 0 Refills, Soft Stop, 07/18/20 15:15:00 EST,[facility] #53656, 165.5, cm, 05/19/20 10:10:00 EST, Height, 102.1, kg, 09/08/19 15:11:00EST, Dry Weight Start Date: 07/18/20 Status: Ordered escitalopram 10 mg oral tablet 1.5 tablet = 15 mg, By Mouth, Daily at bedtime, dose increase, # 45 tablet, 11 Refills, Maintenance, 11/06/21 15:12:00 EDT, [facility] #88160, Partial fill upon patient request if the [...] Effective Dates Health Status Clinical Service Informant Adjustment disorder Discharge Diagnosis 11/06/21 Vital Signs Most recent to oldest [Reference Range]: 1 Height 162.56 cm (11/06/21 2:39 PM) Social History Social History Type Response Smoking Status Former smoker, quit more than 30 days ago entered on: 02/01/21 Sex
--- OUTSIDE RECORDS SUMMARY | 2023-11-29 09:31 | XMS_ITS | Continuity of Care Document ---
Author Organization [facility] Adult Address [address] [place] [address]- Care Team Providers Care Brusher Tender Name Role Phone Jaciel WILSON, Boston Primary Care Physician Encounter [facility] [place] Date(s): 07/16/23 - 08/15/23 [facility] [address] [place] [address]- Allergies, Adverse Reactions, Alerts Substance Reaction Severity Status Flovent chest pain Active Nuts anaphalaxis Active Immunizations Given and Recorded Vaccine Date Status Refusal Reason influenza virus vaccine, inactivated 07/02/22 Gustavo rded influenza virus vaccine, inactivated 1 09/25/21 Gi jennifer influenza virus vaccine, inactivated 04/14/09 Give n [id number] 12y+ bivalent booster vax 07/02/22 Recorded SARS-CoV-2 (COVID-19) mRNA BNT-162b2 vac 07/03/21 Recorded SARS-CoV-2 (COVID-19) mRNA-1273 vaccine 09/07/20 R ecorded SARS-CoV-2 (COVID-19) mRNA-1273 vaccine 08/10/20 R ecorded tetanus/diphtheria/pertussis, acel(Tdap) 02/18/17 Given influ virus vac, H1N1, inactive(oldterm) 2 05/06/09 Given Pneumococcal Poly (PPV23) (oldterm) 06/11/07 Given Tet/Diphth/Acel, Pertussis (oldterm) 3 12/25/06 Gi jennifer 1Result Comment: [facility]:[id number] 2Admin Note: Manufactured by: [employer] 3Admin Note: SANOFI PASTEUR Medications acetaminophen [...] 8.5 Gm, 5 Refills, 03/12/23 10:03:00 EDT, [facility] #18251, 16, 2 puffs Inhalation Every 4 hours,PRN: [...] 0 Refills, Maintenance, 07/10/23 16:07:00 EST, Capsule, [facility] #[id number], Partial fill upon patient request if the prescription is for a schedule II opi... Start Date: 07/10/23 Status: Ordered Breo Ellipta 100 mcg-25 mcg/inh inhalation powder 1 puffs, Inhalation, Daily, # 3 each, 3 Refills, Maintenance, 03/22/23 13:52:00 EDT, [facility] #81421, 1 puffs Inhalation Daily, 162, cm, 01/13/23 7:02:00 EDT, Height, 115.9, kg, 01/11/23 12:29:00 EDT, Dry Weight Start Date: 03/22/23 Status: Ordered Breo Ellipta 100 mcg-25 mcg/inh inhalation powder 1 puffs, Inhalation, Daily, # 180 each, 3 Refills, Maintenance, 07/18/23 18:06:00 EST, [facility], 90, Brand name medically necessary - no substitutions, 1 puffs Inhalation Daily, 163, cm, 07/10/23 15:31:00 EST, Height, 127.5, kg, 12... Start Date: 07/18/23 Status: Ordered budesonide-formoterol 160 mcg-4.5 mcg/inh inhalation aerosol with adapter 2, puffs, Inhalation, 2 times a day, to replace Breo, # 1 each, Refills 11, Tot. Refills 11, Maintenance, 07/17/23 8:19:00 EST, Route to Pharmacy Electronically, [id number],[facility] #27567, 163, cm, 07/10/23 15:3... Start Date: 07/17/23 [...] pack/packet, 0 Refills, Soft Stop, 07/18/20 15:15:00 EST,[facility] #26228, 165.5, cm, 05/19/20 10:10:00 EST, Height, 102.1, [...] Team Personnel Name: Boston Grissom MD Position: [facility] Physician - Primary Care Member Role: PCP Address: Address: [address] [place] [address]- Care Team Related Persons Name: ANTWON GARCIA Address: home [address] [place] [address]
--- OUTSIDE RECORDS SUMMARY | 2023-11-29 09:31 | XMS_ITS | Continuity of Care Document ---
Author Organization [facility] Address [address] [place] [address]- Care Team Providers Care Production Planning Supervisor Name Role Phone Jaciel WILSON, Boston Primary Care Physician Encounter [facility] [place] Date(s): 02/20/23 - 03/22/23 [facility] [address] [place] [address]- Allergies, Adverse Reactions, Alerts Substance Reaction Severity Status Flovent chest pain Active Nuts anaphalaxis Active Immunizations Given and Recorded Vaccine Date Status Refusal Reason influenza virus vaccine, inactivated 07/02/22 Gustavo rded influenza virus vaccine, inactivated 1 09/25/21 Gi jennifer influenza virus vaccine, inactivated 04/14/09 Give n [id number] 12y+ bivalent booster vax 07/02/22 Recorded SARS-CoV-2 (COVID-19) mRNA BNT-162b2 vac 07/03/21 Recorded SARS-CoV-2 (COVID-19) mRNA-1273 vaccine 09/07/20 R ecorded SARS-CoV-2 (COVID-19) mRNA-1273 vaccine 08/10/20 R ecorded tetanus/diphtheria/pertussis, acel(Tdap) 02/18/17 Given influ virus vac, H1N1, inactive(oldterm) 2 05/06/09 Given Pneumococcal Poly (PPV23) (oldterm) 06/11/07 Given Tet/Diphth/Acel, Pertussis (oldterm) 3 12/25/06 Gi jennifer 1Result Comment: [facility]:[id number] 2Admin Note: Manufactured by: [employer] 3Admin Note: SANOFI PASTEUR Medications acetaminophen [...] 8.5 Gm, 5 Refills, 03/12/23 10:03:00 EDT, [facility] #[id number], 16, 2 puffs Inhalation Every 4 hours,PRN: [...] each, 3 Refills, Maintenance, 01/28/23 9:16:00 EDT, [facility] #40980, 90, INHALE 1 PUFF BY MOUTH DAILY, 162, cm, 01/13/23 7:02:00 EDT, Height, 115.9, kg, 01/11/23 12:29:00 EDT, Dry Weight Start Date: 01/28/23 Status: Ordered Breo Ellipta 100 mcg-25 mcg/inh inhalation powder 1 puffs, Inhalation, Daily, # 3 each, 3 Refills, Maintenance, 03/22/23 13:52:00 EDT, [facility] #34324, 1 puffs Inhalation Daily, 162, cm, 01/13/23 [...] pack/packet, 0 Refills, Soft Stop, 07/18/20 15:15:00 EST,[facility] #35258, 165.5, cm, 05/19/20 10:10:00 EST, Height, 102.1, [...] Primary Care Member Role: PCP Address: Address: [address] [place] [address]- Care Team Related Persons Name: ANTWON GARCIA Address: home [address] [place] [address]
--- OUTSIDE RECORDS SUMMARY | 2023-11-29 09:31 | XMS_ITS | Continuity of Care Document ---
Author Organization [facility] ter Address [address] [place] [address]- Care Team Providers Care Archeologist Classical Name Role Phone Boston Grissom MD Primary Care Physician Encounter [facility] [place] Date(s): 02/21/22 - 03/28/[address] [address] Attending Physician: Larissa Troncoso Admitting Physician: Larissa Troncoso Referring Physician: Larissa Troncoso Allergies, Adverse Reactions, Alerts Substance Reaction Severity [...] Given Tet/Diphth/Acel, Pertussis (oldterm) 3 12/25/06 Gi ejnnifer 1Result Comment: [facility]:[id number] 2Admin Note: Manufactured by: [employer] 3Admin Note: SANOFI PASTEUR Medications Albuterol (Eqv-ProAir HFA) 90 mcg/inh inhalation aerosol 2 puffs, Inhalation, Every 4 hours, PRN NEEDED FOR WHEEZING, # 8.5 Gm, 2 Refills, [facility] #01488, 16, INHALE 2 PUFFS BY MOUTH EVERY 4 HOURS NEEDED FOR WHEEZING, 163, cm, 06/21/21 8:48:00 EST, Height, 109, kg, 02/01/21 19:07:00 EDT,... Start Date: 07/03/21 Status: Ordered albuterol 0.083% inhalation solution 3 mL = 2.5 mg, Inhalation, Every 6 hours, PRN for wheezing, # 60 each, 1 Refills, Maintenance, 02/26/22 9:27:00 EDT, Solution, [facility] #51357, Partial fill upon patient request if the prescription is for a schedule II opioid drug., 162.56... Start Date: 02/26/22 Status: Ordered Breo Ellipta 100 mcg-25 mcg/inh inhalation powder 1 puffs, Inhalation, Daily, # 3 each, 3 Refills, 02/16/22 12:14:00 EDT, [facility] #51323, no substitutuion - brand name necessary, 1 puffs Inhalation Daily, 162.56, cm, 02/02/22 15:09:00 EDT, Height, 112.1, kg, 02/02/22 15:11:00 EDT, Dry We... Start Date: 02/16/22 Status: Ordered EpiPen 2-Gage 0.3 mg injectable kit See Instructions, Intramuscular Once, # 1 pack/packet, 0 Refills, Soft Stop, 07/18/20 15:15:00 EST,[facility] #64597, 165.5, cm, 05/19/20 10:10:00 EST, Height, 102.1, kg, 09/08/19 15:11:00EST, Dry Weight Start Date: 07/18/20 Status: Ordered escitalopram 10 mg oral tablet 1.5 tablet = 15 mg, By Mouth, Daily at bedtime, dose increase, # 45 tablet, 11 Refills, Maintenance, 11/06/21 15:12:00 EDT, [facility] #81842, Partial fill upon patient request if the [...] tablet, 1 Refills,Maintenance, 02/16/22 12:16:00 EDT, Tablet, [facility]75094, 162.56, cm, 02/02/22 15:09:00 EDT, Height, 112.1, [...] Team Personnel Name: Boston Grissom MD Address: [address] [place] [address]
--- OUTSIDE RECORDS SUMMARY | 2023-11-29 09:31 | XMS_ITS | Continuity of Care Document ---
Author Organization [facility] Address [address] [place] [address]- Care Team Providers Care Business Support Professional Name Role Phone Boston Grissom MD Primary Care Physician Encounter [facility] [place] Date(s): 09/08/19 - 09/15/19 [facility] [address] [place] [address]- [facility] Encounter Diagnosis Flu-like symptoms(Discharge Diagnosis) - 09/08/19 Attending Physician: Dimitris Appiah MD Referring Physician: Boston Grissom MD Allergies, [...] 12/25/06 Gi jennifer 1Admin Note: Manufactured by: [employer] 2Admin Note: SANOFI PASTEUR Medications [...] 08/28/17 16:19:47, Aerosol, Route to Pharmacy Electronically, [id number], [facility] Start Date: 08/28/17 Status: Ordered scopolamine 1.5 [...] 08/10/19 15:17:00 EST, Route to Pharmacy Electronically, [facility] #31196, 165.5, cm, 08/10/19 14:42:00 EST, Height Start [...] pap- years ago, nl since 2both parents Diagnosis Diagnosis Type Effective Dates Health Status Cl inical Service Informant Flu-like symptoms Discharge Diagnosis 09/08/19 Vital Signs Most recent to oldest [Reference Range]: 1 Height 165.5 cm (09/08/19 3:08 PM) Weight 102.1 kg (09/08/19 3:08 PM) Oxygen Saturation [94-100 %] 98 % (09/08/19 3:08 PM) Pulse Rate [55-90 bpm] 75 bpm (09/08/19 3:08 PM) Body Mass Index [18.5-24.99] 37.28 *>HHI* (09/08/19 3:08 PM) Blood Pressure [90-138/55-84 mm Hg] 109/ 76mm Hg (09/08/19 3:08 PM) Respiratory Rate [16-30 br/min] 28 br/mi n (09/08/19 3:08 PM) Temperature [96.8-100.4 DegF] 98.6 DegF (09/08/19 3:08 PM) Mode of Delivery (Oxygen) Room air (09/08/19 3:08 PM) Blood pressure sites Arm, left (09/08/19 3:08 PM) Temperature Route Oral (09/08/19 3:08 PM) Dry Weight 102.1 kg (09/08/19 3:08 PM) Weight Obtained Via Standing scale (09/08/19 3:08 PM) Dry Weight Obtained Via Standing scale (09/08/19 3:08 PM) Social History Social History Type Response Smoking Status Former smoker; Type: Cigarettes; Other: on and off 10 years; entered on: 03/12/18 Sex
--- OUTSIDE RECORDS SUMMARY | 2023-11-29 09:31 | XMS_ITS | Continuity of Care Document ---
Author Organization [facility] Address [address] [place] [address]- Care Team Providers Care Fishing Instructor Name Role Phone Boston Grissom MD Primary Care Physician Encounter [facility] Date(s): 07/18/20 - 07/25/20 [facility] [address] [place] [address]- Encounter Diagnosis COVID-19 virus infection(Discharge Diagnosis) - 07/18/20 Attending Physician: Boston Grissom MD Allergies, Adverse [...] each, 5 Refills, Maintenance, 07/20/20 14:16:00 EST, [email or web address] #24595, 165.5, cm, 07/19/20 18:29:00 EST, Height, 102.1, kg, 09/08/19 15:11:00 EST, Dry Weight Start Date: 07/20/20 Status: Ordered Breo Ellipta 100 mcg-25 mcg/inh inhalation powder 1 puffs, Inhalation, Daily, # 1 each, 11 Refills, Maintenance, 09/25/19 15:00:00 EDT, Powder, [facility] #02514, 1 puffs Inhalation Daily, 165.5, cm, 09/08/19 15:08:00 EST, Height, 102.1, kg, 09/08/19 15:11:00 EST, Dry Weight Start Date: 09/25/19 Status: Ordered cyclobenzaprine 5 mg oral tablet 1 tablet = 5 mg, By Mouth, 3 times a day, PRN Other, PRN for leg pain, # 30 tablet, 5 Refills, Maintenance, 03/30/20 16:16:00 EDT, [facility] #65186, 165.5, cm, 09/08/19 15:08:00 EST, Height, 102.1, kg, 09/08/19 15:11:00 EST, Dry Weight Start Date: 03/30/20 Status: Ordered EpiPen 2-Gage 0.3 mg injectable kit See Instructions, Intramuscular Once, # 1 pack/packet, 0 Refills, Soft Stop, 07/18/20 15:15:00 EST,[facility] #45883, 165.5, cm, 05/19/20 10:10:00 EST, Height, 102.1, [...] 16:16:00 EDT, Aerosol, Route to Pharmacy Electronically, [id number], [facility] #23741, 165.5, cm, 09/08/19 15:0... Start Date: 03/30/20 [...] 08/10/19 15:17:00 EST, Route to Pharmacy Electronically, [facility] #01780, 165.5, cm, 08/10/19 14:42:00 EST, Height Start [...] Dates Health Status Cl inical Service Informant COVID-19 virus infection Discharge Diagnosis 07/18/20 Vital Signs Most recent to oldest [Reference Range]: 1 Height 165.5 cm (07/18/20 3:12 PM) Social History Social History Type Response Smoking Status Former smoker; Type: Cigarettes; Other: on and off 10 years; entered on: 03/12/18 Sex
--- OUTSIDE RECORDS SUMMARY | 2023-11-29 09:31 | XMS_ITS | Continuity of Care Document ---
Author Organization [facility] Address Unknown Care Team Providers Care Admissions Nurse Name Role Phone Boston Grissom MD Primary Care Physician Encounter [facility] Date(s): 11/08/21 - 12/08/21 [facility] Attending Physician: AdmScott diggs Admitting Physician: AdmtrScott Referring Physician: Admtr, Ar8 Allergies, Adverse Reactions, Alerts [...] (oldterm) 3 12/25/06 Gi jennifer 1Result Comment: [facility]:[id number] 2Admin Note: Manufactured by: [employer] 3Admin Note: SANOFI PASTEUR Medications Albuterol (Eqv-ProAir HFA) 90 mcg/inh inhalation aerosol 2 puffs, Inhalation, Every 4 hours, PRN NEEDED FOR WHEEZING, # 8.5 Gm, 2 Refills, [facility] #67433, 16, INHALE 2 PUFFS BY MOUTH EVERY 4 HOURS NEEDED FOR WHEEZING, 163, cm, 06/21/21 8:48:00 EST, Height, 109, kg, 02/01/21 19:07:00 EDT,... Start Date: 07/03/21 Status: Ordered Breo Ellipta 100 mcg-25 mcg/inh inhalation powder 1 puffs, Inhalation, Daily, # 3 each, 2 Refills, 10/20/21 9:30:00 EDT, [facility] #57162,1 puffs Inhalation Daily, 162.56, cm, 10/09/21 13:19:00 EDT, Height, 109.5, kg, 10/03/21 13:50:00 EDT, Dry Weight Start Date: 10/20/21 Status: Ordered EpiPen 2-Gage 0.3 mg injectable kit See Instructions, Intramuscular Once, # 1 pack/packet, 0 Refills, Soft Stop, 07/18/20 15:15:00 EST,[facility] #08886, 165.5, cm, 05/19/20 10:10:00 EST, Height, 102.1, kg, 09/08/19 15:11:00EST, Dry Weight Start Date: 07/18/20 Status: Ordered escitalopram 10 mg oral tablet 1.5 tablet = 15 mg, By Mouth, Daily at bedtime, dose increase, # 45 tablet, 11 Refills, Maintenance, 11/06/21 15:12:00 EDT, [facility] #03689, Partial fill upon patient request if the [...]
--- OUTSIDE RECORDS SUMMARY | 2023-11-29 09:31 | XMS_ITS | Continuity of Care Document ---
Author Organization [facility] Address [address] [place] [address]- Care Team Providers Care Scientific Manager Name Role Phone Jaciel WILSON, [place] Primary Care Physician [place] [facility] [place] 03[place]/23 [facility] [address] [place] [address]- Allergies, Adverse Reactions, Alerts Substance Reaction Severity Status Flovent chest pain Active Nuts anaphalaxis Active Immunizations Given and Recorded Vaccine Date Status Refusal Reason influenza virus vaccine, inactivated 07/02/22 Gustavo rded influenza virus vaccine, inactivated 1 09/25/21 Gi jennifer influenza virus vaccine, inactivated 04/14/09 Give n [id number] 12y+ bivalent booster vax 07/02/22 Recorded SARS-CoV-2 (COVID-19) mRNA BNT-162b2 vac 07/03/21 Recorded SARS-CoV-2 (COVID-19) mRNA-1273 vaccine 09/07/20 R ecorded SARS-CoV-2 (COVID-19) mRNA-1273 vaccine 08/10/20 R ecorded tetanus/diphtheria/pertussis, acel(Tdap) 02/18/17 Given influ virus vac, H1N1, inactive(oldterm) 2 05/06/09 Given Pneumococcal Poly (PPV23) (oldterm) 06/11/07 Given Tet/Diphth/Acel, Pertussis (oldterm) 3 12/25/06 Gi jennifer 1Result Comment: [facility]:80949-212-03 2Admin Note: Manufactured by: [employer] 3Admin Note: SANOFI PASTEUR Medications acetaminophen [...] 8.5 Gm, 5 Refills, 03/12/23 10:03:00 EDT, [facility] #62721, 16, 2 puffs Inhalation Every 4 hours,PRN: [...] each, 3 Refills, Maintenance, 01/28/23 9:16:00 EDT, [facility] #[id number], 90, INHALE 1 PUFF BY MOUTH DAILY, 162, cm, 01/13/23 7:02:00 EDT, Height, 115.9, kg, 01/11/23 12:29:00 EDT, Dry Weight Start Date: 01/28/23 Status: Ordered Breo Ellipta 100 mcg-25 mcg/inh inhalation powder 1 puffs, Inhalation, Daily, # 3 each, 3 Refills, Maintenance, 03/22/23 13:52:00 EDT, [facility] #[id number], 1 puffs Inhalation Daily, 162, cm, 01/13/23 [...] pack/packet, 0 Refills, Soft Stop, 07/18/20 15:15:00 EST,[facility] #62545, 165.5, cm, 05/19/20 10:10:00 EST, Height, 102.1, [...] Primary Care Member Role: PCP Address: Address: [address] [place] [address]- Care Team Related Persons Name: ANTWON GARCIA Address: home [address] [place] [address]
--- OUTSIDE RECORDS SUMMARY | 2023-11-29 09:31 | XMS_ITS | Continuity of Care Document ---
Author Organization [facility] Address [address] [place] [address]- Care Team Providers Care Radio Mechanic Name Role Phone [place] Grissom MD Primary Care Physician [place] [facility] [place]20 [facility] [address] [place] [address]- Allergies, Adverse Reactions, Alerts Substance Reaction Severity Status Flovent Active Nuts anaphalaxis Active Immunizations Given and Recorded Vaccine Date Status Refusal Reason tetanus/diphtheria/pertussis, acel(Tdap) 02/18/17 Given influ virus vac, H1N1, inactive(oldterm) 1 05/06/09 Given influenza virus vaccine, inactivated 04/14/09 Give n Pneumococcal Poly (PPV23) (oldterm) 06/11/07 Given Tet/Diphth/Acel, Pertussis (oldterm) 2 12/25/06 Gi jennifer 1Admin Note: Manufactured by: [employer] 2Admin Note: SANOFI PASTEUR Medications albuterol 0.083% inhalation solution 3 mL, Inhalation, Every 6 hours, PRN as needed for wheezing, # 25 each, 5 Refills, Maintenance, 07/20/20 14:16:00 EST, [facility] #[id number], 165.5, cm, 07/19/20 18:29:00 EST, Height, 102.1, kg, 09/08/19 15:11:00 EST, Dry Weight Start Date: 07/20/20 Status: Ordered Breo Ellipta 100 mcg-25 mcg/inh inhalation powder 1 puffs, Inhalation, Daily, # 1 each, 11 Refills, Maintenance, 09/25/19 15:00:00 EDT, Powder, [facility] #48066, 1 puffs Inhalation Daily, 165.5, cm, 09/08/19 15:08:00 EST, Height, 102.1, kg, 09/08/19 15:11:00 EST, Dry Weight Start Date: 09/25/19 Status: Ordered cyclobenzaprine 5 mg oral tablet 1 tablet = 5 mg, By Mouth, 3 times a day, PRN Other, PRN for leg pain, # 30 tablet, 5 Refills, Maintenance, 03/30/20 16:16:00 EDT, [facility] #23281, 165.5, cm, 09/08/19 15:08:00 EST, Height, 102.1, kg, 09/08/19 15:11:00 EST, Dry Weight Start Date: 03/30/20 Status: Ordered EpiPen 2-Gage 0.3 mg injectable kit See Instructions, Intramuscular Once, # 1 pack/packet, 0 Refills, Soft Stop, 07/18/20 15:15:00 EST,[facility] #20400, 165.5, cm, 05/19/20 10:10:00 EST, Height, 102.1, [...] 16:16:00 EDT, Aerosol, Route to Pharmacy Electronically, [id number], [facility] #42078, 165.5, cm, 02/25/20 15:0... Start Date: 03/30/20 Status: Ordered scopolamine [...] 08/10/19 15:17:00 EST, Route to Pharmacy Electronically, [facility] #16345, 165.5, cm, 08/10/19 14:42:00 EST, Height Start [...]
--- OUTSIDE RECORDS SUMMARY | 2023-11-29 09:31 | XMS_ITS | Continuity of Care Document ---
Author Organization [facility] Address [address] [place] [address]- Care Team Providers Care Aerospace Quality Engineer Name Role Phone Boston Grissom MD Primary Care Physician [phone] Encounter [facility] [place] Date(s): 07/10/23 - 08/09/23 [facility] [address] [place] [address]- Attending Physician: Scott Murcia Admitting Physician: Scott Murcia Referring Physician: AdmtrScott Allergies, Adverse Reactions, Alerts Substance Reaction Severity Status Flovent chest pain Active Nuts anaphalaxis Active Immunizations Given and Recorded Vaccine Date Status Refusal Reason influenza virus vaccine, inactivated 07/02/22 Gustavo rded influenza virus vaccine, inactivated 1 09/25/21 Gi jennifer influenza virus vaccine, inactivated 04/14/09 Give n [id number] 12y+ bivalent booster vax 07/02/22 Recorded SARS-CoV-2 (COVID-19) mRNA BNT-162b2 vac 07/03/21 Recorded SARS-CoV-2 (COVID-19) mRNA-1273 vaccine 09/07/20 R ecorded SARS-CoV-2 (COVID-19) mRNA-1273 vaccine 08/10/20 R ecorded tetanus/diphtheria/pertussis, acel(Tdap) 02/18/17 Given influ virus vac, H1N1, inactive(oldterm) 2 05/06/09 Given Pneumococcal Poly (PPV23) (oldterm) 06/11/07 Given Tet/Diphth/Acel, Pertussis (oldterm) 3 12/25/06 Gi jennifer 1Result Comment: [facility]:[id number] 2Admin Note: Manufactured by: [employer]. 3Admin Note: SANOFI PASTEUR Medications acetaminophen 325 [...] 8.5 Gm, 5 Refills, 03/12/23 10:03:00 EDT, [facility] #67646, 16, 2 puffs Inhalation Every 4 hours,PRN: [...] 0 Refills, Maintenance, 07/10/23 16:07:00 EST, Capsule, [facility] #94551, Partial fill upon patient request if the prescription is for a schedule II opi... Start Date: 07/10/23 Status: Ordered Breo Ellipta 100 mcg-25 mcg/inh inhalation powder 1 puffs, Inhalation, Daily, # 3 each, 3 Refills, Maintenance, 03/22/23 13:52:00 EDT, [facility] #25065, 1 puffs Inhalation Daily, 162, cm, 01/13/23 7:02:00 EDT, Height, 115.9, kg, 01/11/23 12:29:00 EDT, Dry Weight Start Date: 03/22/23 Status: Ordered Breo Ellipta 100 mcg-25 mcg/inh inhalation powder 1 puffs, Inhalation, Daily, # 180 each, 3 Refills, Maintenance, 07/18/23 18:06:00 EST, [facility], 90, Brand name medically necessary - no substitutions, 1 puffs Inhalation Daily, 163, cm, 07/10/23 15:31:00 EST, Height, 127.5, kg, 12/... Start Date: 07/18/23 Status: Ordered budesonide-formoterol 160 mcg-4.5 mcg/inh inhalation aerosol with adapter 2, puffs, Inhalation, 2 times a day, to replace Breo, # 1 each, Refills 11, Tot. Refills 11, Maintenance, 07/17/23 8:19:00 EST, Route to Pharmacy Electronically, [id number],[facility] #24815, 163, cm, 07/10/23 15:3... Start Date: 07/17/23 [...] pack/packet, 0 Refills, Soft Stop, 07/18/20 15:15:00 EST,[facility] #36055, 165.5, cm, 05/19/20 10:10:00 EST, Height, 102.1, [...] study * Event Display: EKG Authored Date: Patient Care team information Care Team Personnel Name: [place] Grissom MD Position: [facility] Physician - Primary Care Member Role: PCP Address: Address: [address] [place] [address]- Care Team Related Persons Name: ANTWON GARCIA Address: [address] [place] [address]
--- OUTSIDE RECORDS SUMMARY | 2023-11-29 09:31 | XMS_ITS | Continuity of Care Document ---
Author Organization [facility] Address [address] [place] [address]- Care Team Providers Care Yard Labor Supervisor Name Role Phone [place] Grissom MD Primary Care Physician Encounter [facility] [place] Date(s): 05/10/21 - 05/17/21 [facility] [address] [place] [address]- Encounter Diagnosis Back pain(Discharge Diagnosis) - 05/10/21 Sciatica(Discharge Diagnosis) - 05/10/21 Attending Physician: Vidal Fulton MD Referring Physician: Boston Grsisom MD Allergies, Adverse Reactions, Alerts Substance Reaction [...] 25 each, 5 Refills, Maintenance, 07/20/20 14:16:00 [facility] [place], [facility], 165.5, cm, 07/19/20 18:29:00 EST, Height, 102.1, kg, 09/08/19 15:11:00 EST, Dry Weight Start Date: 07/20/20 Status: Ordered Breo Ellipta 100 mcg-25 mcg/inh inhalation powder 1 puffs, Inhalation, Daily, # 1 each, 11 Refills, Maintenance, 10/03/20 15:46:00 EDT, Pow[facility], [facility], 1 puffs Inhalation Daily, 165.5, cm, 09/20/20 13:58:00 EST, Height, 102.1, kg, 09/08/19 15:11:00 EST, Dry Weight Start Date: 10/03/20 Status: Ordered cyclobenzaprine 5 mg oral tablet 1 tablet, By Mouth, 3 times a day, PRN NEEDED FOR LEG PAIN, # 30 tablet, 0 Refills, [facility] #10742, 165.5, cm, 02/01/21 19:07:00 EDT, Height, 109, kg, 02/01/21 19:07:00 EDT, Dry Weight Start Date: 04/24/21 Status: Ordered EpiPen 2-Gage 0.3 mg injectable kit See Instructions, Intramuscular Once, # 1 pack/packet, 0 Refills, Soft Stop, 07/18/20 15:15:00 EST,[facility], 165.5, cm, 05/19/20 10:10:00 EST, Height, 102.1, [...] 16:16:00 EDT, Aerosol, Route to Pharmacy Electronically, [id number], [facility] #07844, 165.5, cm, 09/08/19 15:0... 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 Obesity(Confirmed) Active Obstructive sleep apnea(Confirmed) Active 1both parents Diagnosis Diagnosis Type Effective Dates Health Status Clini valeriy Service Informant Back pain Discharge Diagnosis 05/10/21 Sciatica Discharge Diagnosis 05/10/21 Vital Signs Most recent to oldest [Reference Range]: 1 Height 165.5 cm (05/10/21 3:52 PM) Oxygen Saturation [94-100 %] 98 % (05/10/21 3:52 PM) Pulse Rate [55-90 bpm] 80 bpm (05/10/21 3:52 PM) Blood Pressure [90-138/55-84 mm Hg] 116/ 42mm Hg (05/10/21 3:52 PM) Temperature [96.8-100.4 DegF] 98.6 DegF (05/10/21 3:52 PM) Mode of Delivery (Oxygen) Room air (05/10/21 3:52 PM) Blood pressure sites Arm, right (05/10/21 3:52 PM) Temperature Route Temporal (05/10/21 3:52 PM) Social History Social History Type Response Smoking Status Former smoker, quit more than 30 days ago entered on: 02/01/21 Sex
--- OUTSIDE RECORDS SUMMARY | 2023-11-29 09:31 | XMS_ITS | Continuity of Care Document ---
Author Organization [facility] Address [address] [place] [address]- Care Team Providers Care Conveyor Belt Installer Name Role Phone Boston Grissom MD Primary Care Physician Encounter [facility] [place] Date(s): 09/25/23 - 10/02/23 [facility] [address] [place] [address]- Encounter Diagnosis Severe obesity(Discharge Diagnosis) - 09/25/23 Attending Physician: Boston Grissom MD Allergies, Adverse Reactions, Alerts Substance Reaction Severity Status Flovent chest pain Active Nuts anaphalaxis Active Immunizations Given and Recorded Vaccine Date Status Refusal Reason influenza virus vaccine, inactivated 07/02/22 Gustavo rded influenza virus vaccine, inactivated 1 09/25/21 Gi jennifer influenza virus vaccine, inactivated 04/14/09 Give n [id number] 12y+ bivalent booster vax 07/02/22 Recorded SARS-CoV-2 (COVID-19) mRNA BNT-162b2 vac 07/03/21 Recorded SARS-CoV-2 (COVID-19) mRNA-1273 vaccine 09/07/20 R ecorded SARS-CoV-2 (COVID-19) mRNA-1273 vaccine 08/10/20 R ecorded tetanus/diphtheria/pertussis, acel(Tdap) 02/18/17 Given influ virus vac, H1N1, inactive(oldterm) 2 05/06/09 Given Pneumococcal Poly (PPV23) (oldterm) 06/11/07 Given Tet/Diphth/Acel, Pertussis (oldterm) 3 12/25/06 Gi jennifer 1Result Comment: [facility]:84830-598-15 2Admin Note: Manufactured by: [employer]. 3Admin Note: SANOFI PASTEUR Medications acetaminophen 325 [...] 8.5 Gm, 5 Refills, 03/12/23 10:03:00 EDT, [facility] #87436, 16, 2 puffs Inhalation Every 4 hours,PRN: [...] 0 Refills, Maintenance, 07/10/23 16:07:00 EST, Capsule, [facility] #79451, Partial fill upon patient request if the prescription is for a schedule II opi... Start Date: 07/10/23 Status: Ordered Breo Ellipta 100 mcg-25 mcg/inh inhalation powder 1 puffs, Inhalation, Daily, # 3 each, 3 Refills, Maintenance, 03/22/23 13:52:00 EDT, [facility] #79659, 1 puffs Inhalation Daily, 162, cm, 01/13/23 7:02:00 EDT, Height, 115.9, kg, 01/11/23 12:29:00 EDT, Dry Weight Start Date: 03/22/23 Status: Ordered Breo Ellipta 100 mcg-25 mcg/inh inhalation powder 1 puffs, Inhalation, Daily, # 180 each, 3 Refills, Maintenance, 07/18/23 18:06:00 EST, [facility], 90, Brand name [...] 07/17/23 8:19:00 EST, Route to Pharmacy Electronically, [id number],[facility] #[id number], 163, cm, 07/10/23 15:3... Start Date: 07/17/23 [...] pack/packet, 0 Refills, Soft Stop, 07/18/20 15:15:00 EST,[facility] #75190, 165.5, cm, 05/19/20 10:10:00 EST, Height, 102.1, [...] Dates Health Status Cl inical Service Informant Severe obesity Discharge Diagnosis 09/25/23 Social History Social History Type Response Smoking Status Former smoker, quit more than 30 days ago entered on: 02/01/21 Sex Note * Sujata Frias [place]: PERFORM, SIGN, VERIFY Event Display: Patient Education/Instruction Authored Date: [id number] [facility] *CHLOE Florian Clinical Summary Name RON GARCIA Age 43 Years 1980 PCP [place] [facility]issom [id number] Visit Date 09/25/2023 07:40:00 Additional Instructions: Scheduled Appointments?? Future Appointments ?*CHLOE??[place] ?[address]??[place],??[address] ?Phone:??--?Fax:??-- ?Appt. Date:??11/20/2023?7:00 AM ?Scheduled Provider:??Boston Grissmo MD Follow-Up Instructions ?? Diagnosis Morbid (severe) obesity due to excess calories Medications: Please continue your medications until treatment is completed or stopped by your provider. Discuss any questions related to medications with your provider. Medications to Continue with No Changes These medications were not printed or sent to your pharmacy Acetaminophen (acetaminophen 325 mg oral tablet) 650 Milligram Oral every 6 hours. May take OTC not to exceed 3000 mg/day. Next Dose: Albuterol (Albuterol (Eqv-ProAir HFA) 90 mcg/inh inhalation aerosol) 2 puff(s) Inhalation every 4 hours as needed NEEDED FOR WHEEZING. Refills: 5. Next Dose: Aspirin (Aspirin Tablet) 325 Milligram Oral twice a day. Next Dose: Benzonatate (benzonatate 100 mg oral capsule) 1-2 capsule(s) By Mouth up to 3 times a day; as needed Cough. Refills: 0. Next Dose: Budesonide-Formoterol (budesonide-formoterol 160 mcg-4.5 mcg/inh inhalation aerosol with adapter) 2puff(s) Inhalation twice a day. to replace Breo. Refills: 11. Next Dose: Cyclobenzaprine (cyclobenzaprine 5 mg oral [...] Flovent Medications Given This Visit Future Orders ?No future orders Future Orders ?No future orders Vital Signs Height Weight BMI Blood Pressure / Temperature Pulse Rate Respiratory Rate 02 Sat Mode of Delivery / You can now view a summary of your hospital visit from the comfort of your home through a free online portal called [facility] ([facility]). [facility] ([facility]) is a website that allows you to securely view your medical information including discharge summary, medications and follow-up visits. ??You can alsosend a secure electronic message to your doctor???s office to request appointments, renew medications or just ask a question. You can enroll at [email or web address] or register during your next office [...] primary care provider, you may find a [facility] provider by calling [facility] at [phone]. [facility], in keeping with [facility] guidance, no longer requires face masks for [...] Care Member Role: PCP Address: Address: [address] [place] [address]- [place] Care Team Related Persons Name: ANTWON GARCIA Address: [address] [place] [address]
--- OUTSIDE RECORDS SUMMARY | 2023-11-29 09:31 | XMS_ITS | Continuity of Care Document ---
Author Organization [facility] Address [address] [place] [address]- Care Team Providers Care Credit Collections Clerk Name Role Phone Boston Grissom MD Primary Care Physician [phone] Encounter [facility] [place] Date(s): 12/09/22 - 01/08/23 [facility] [address] [place] [address]- Allergies, Adverse Reactions, Alerts Substance Reaction Severity Status Flovent chest pain Active Nuts anaphalaxis Active Immunizations Given and Recorded Vaccine Date Status Refusal Reason influenza virus vaccine, inactivated 07/02/22 Gustavo rded influenza virus vaccine, inactivated 1 09/25/21 Gi jennifer influenza virus vaccine, inactivated 04/14/09 Give n [id number] 12y+ bivalent booster vax 07/02/22 Recorded SARS-CoV-2 (COVID-19) mRNA BNT-162b2 vac 07/03/21 Recorded SARS-CoV-2 (COVID-19) mRNA-1273 vaccine 09/07/20 R ecorded SARS-CoV-2 (COVID-19) mRNA-1273 vaccine 08/10/20 R ecorded tetanus/diphtheria/pertussis, acel(Tdap) 02/18/17 Given influ virus vac, H1N1, inactive(oldterm) 2 05/06/09 Given Pneumococcal Poly (PPV23) (oldterm) 06/11/07 Given Tet/Diphth/Acel, Pertussis (oldterm) 3 12/25/06 Gi jennifer 1Result Comment: [facility]:09704-752-46 2Admin Note: Manufactured by: [employer]. 3Admin Note: SANOFI PASTEUR Medications Albuterol (Eqv-ProAir HFA) 90 mcg/inh inhalation aerosol 2 puffs, Inhalation, Every 4 hours, PRN NEEDED FOR WHEEZING, # 8.5 Gm, 5 Refills, 12/25/22 6:12:00 EDT, [facility] #[id number], 16, 2 puffs Inhalation Every 4 hours,PRN: NEEDED FOR WHEEZING, 162.56, cm, 09/26/22 13:58:00 EDT, Height, 112.1,... Start Date: 12/25/22 Status: Ordered albuterol 0.083% inhalation solution 3 mL = 2.5 mg, Inhalation, Every 6 hours, PRN for wheezing, # 60 each, 1 Refills, Maintenance, 02/26/22 9:27:00 EDT, Solution, [facility] #54757, Partial fill upon patient request if the prescription is for a schedule II opioid drug., 162.56... Start Date: 02/26/22 Status: Ordered Breo Ellipta 100 mcg-25 mcg/inh inhalation powder 1 puffs, Inhalation, Daily, # 3 each, 3 Refills, 02/16/22 12:14:00 EDT, [facility] #43660, no substitutuion - brand name necessary, 1 [...] pack/packet, 0 Refills, Soft Stop, 07/18/20 15:15:00 EST,[facility] #49568, 165.5, cm, 05/19/20 10:10:00 EST, Height, 102.1, [...] Team Personnel Name: Boston Grissom MD Position: [facility] Physician - Primary Care Member Role: PCP Address: Address: [address] [place] [address]- Care Team Related Persons Name: ANTWON GARCIA Address: [address] [place] [address]
--- OUTSIDE RECORDS SUMMARY | 2023-11-29 09:31 | XMS_ITS | Continuity of Care Document ---
Author Organization [facility] ter Address [address] [place] [address]- Care Team Providers Care Residential Lawn Specialist Name Role Phone Boston Grissom MD Primary Care Physician [phone] Encounter [facility] [place] Date(s): 08/13/19 - 08/13/[address] [address]- [facility] Attending Physician: Boston Grissom MD Allergies, Adverse Reactions, Alerts Substance Reaction Severity Status Flovent Active Nuts anaphalaxis Active Immunizations Given and Recorded Vaccine Date Status Refusal Reason tetanus/diphtheria/pertussis, acel(Tdap) 02/18/17 Given influ virus vac, H1N1, inactive(oldterm) 1 05/06/09 Given influenza virus vaccine, inactivated 04/14/09 Give n Pneumococcal Poly (PPV23) (oldterm) 06/11/07 Given Tet/Diphth/Acel, Pertussis (oldterm) 2 12/25/06 Gi jennifer 1Admin Note: Manufactured by: [employer] 2Admin Note: [employer] PA[employer]UR Medications albuterol 0.083% inhalation solution 3 [...] # 1 pack/packet, 0 Refills, Soft Stop, 10/25/17 14:16:26 Start Date: 05/08/17 Status: Ordered Mirena [...] 08/28/17 16:19:47, Aerosol, Route to Pharmacy Electronically, [id number], [facility] [id number] Start Date: 08/28/17 Status: Ordered scopolamine 1.5 [...] 08/10/19 15:17:00 EST, Route to Pharmacy Electronically, [facility] #72170, 165.5, cm, 08/10/19 14:42:00 EST, Height Start [...]
--- OUTSIDE RECORDS SUMMARY | 2023-11-29 09:31 | XMS_ITS | Continuity of Care Document ---
Author Organization [facility] Address [address] [place] [address]- Care Team Providers Care Pet Sitting Name Role Phone Jaciel WILSON, [place] Primary Care Physician Encounter [facility] [place] Date(s): 03/13/23 - 04/12/23 [facility] [address] [place] [address]- Allergies, Adverse Reactions, Alerts Substance Reaction Severity Status Flovent chest pain Active Nuts anaphalaxis Active Immunizations Given and Recorded Vaccine Date Status Refusal Reason influenza virus vaccine, inactivated 07/02/22 Gustavo rded influenza virus vaccine, inactivated 1 09/25/21 Gi jennifer influenza virus vaccine, inactivated 04/14/09 Give n [id number] 12y+ bivalent booster vax 07/02/22 Recorded SARS-CoV-2 (COVID-19) mRNA BNT-162b2 vac 07/03/21 Recorded SARS-CoV-2 (COVID-19) mRNA-1273 vaccine 09/07/20 R ecorded SARS-CoV-2 (COVID-19) mRNA-1273 vaccine 08/10/20 R ecorded tetanus/diphtheria/pertussis, acel(Tdap) 02/18/17 Given influ virus vac, H1N1, inactive(oldterm) 2 05/06/09 Given Pneumococcal Poly (PPV23) (oldterm) 06/11/07 Given Tet/Diphth/Acel, Pertussis (oldterm) 3 12/25/06 Gi jennifer 1Result Comment: [facility]:[id number] 2Admin Note: Manufactured by: [employer] 3Admin Note: SANOFI PASTEUR Medications acetaminophen [...] 8.5 Gm, 5 Refills, 03/12/23 10:03:00 EDT, [facility] #29227, 16, 2 puffs Inhalation Every 4 hours,PRN: [...] each, 3 Refills, Maintenance, 01/28/23 9:16:00 EDT, [facility] #63384, 90, INHALE 1 PUFF BY MOUTH DAILY, 162, cm, 01/13/23 7:02:00 EDT, Height, 115.9, kg, 01/11/23 12:29:00 EDT, Dry Weight Start Date: 01/28/23 Status: Ordered Breo Ellipta 100 mcg-25 mcg/inh inhalation powder 1 puffs, Inhalation, Daily, # 3 each, 3 Refills, Maintenance, 03/22/23 13:52:00 EDT, [facility] #66904, 1 puffs Inhalation Daily, 162, cm, 01/13/23 [...] pack/packet, 0 Refills, Soft Stop, 07/18/20 15:15:00 EST,[facility] #90684, 165.5, cm, 05/19/20 10:10:00 EST, Height, 102.1, [...] Primary Care Member Role: PCP Address: Address: [address] [place] [address]- Care Team Related Persons Name: ANTWON GARCIA Address: home [address] [place] [address]
--- OUTSIDE RECORDS SUMMARY | 2023-11-29 09:31 | XMS_ITS | Continuity of Care Document ---
Author Organization [facility] Adult Address [address] [place] [address]- Care Team Providers Care Senior Director Creative Services Name Role Phone Jaciel WILSON, [place] Primary Care Physician [phone] Encounter [facility] [place] Date(s): 10/28/22 - 11/27/22 [facility] [address] [place] [address]- Allergies, Adverse Reactions, Alerts Substance Reaction Severity Status Flovent chest pain Active Nuts anaphalaxis Active Immunizations Given and Recorded Vaccine Date Status Refusal Reason influenza virus vaccine, inactivated 07/02/22 Gustavo rded influenza virus vaccine, inactivated 1 09/25/21 Gi jennifer influenza virus vaccine, inactivated 04/14/09 Give n [id number] 12y+ bivalent booster vax 07/02/22 Recorded SARS-CoV-2 (COVID-19) mRNA BNT-162b2 vac 07/03/21 Recorded SARS-CoV-2 (COVID-19) mRNA-1273 vaccine 09/07/20 R ecorded SARS-CoV-2 (COVID-19) mRNA-1273 vaccine 08/10/20 R ecorded tetanus/diphtheria/pertussis, acel(Tdap) 02/18/17 Given influ virus vac, H1N1, inactive(oldterm) 2 05/06/09 Given Pneumococcal Poly (PPV23) (oldterm) 06/11/07 Given Tet/Diphth/Acel, Pertussis (oldterm) 3 12/25/06 Gi jennifer 1Result Comment: [facility]:[id number] 2Admin Note: Manufactured by: [employer] 3Admin Note: SANOFI PASTEUR Medications Albuterol (Eqv-ProAir HFA) 90 mcg/inh inhalation aerosol 2 puffs, Inhalation, Every 4 hours, PRN NEEDED FOR WHEEZING, # 8.5 Gm, 5 Refills, 04/25/22 9:56:00 EDT, [facility] #[id number], 16, 2 puffs Inhalation Every 4 hours,PRN: NEEDED FOR WHEEZING, 162.56, cm, 04/19/22 9:56:00 EDT, Height, 112.1, k... Start Date: 04/25/22 Status: Ordered albuterol 0.083% inhalation solution 3 mL = 2.5 mg, Inhalation, Every 6 hours, PRN for wheezing, # 60 each, 1 Refills, Maintenance, 02/26/22 9:27:00 EDT, Solution, [facility] #[id number], Partial fill upon patient request if the prescription is for a schedule II opioid drug., 162.56... Start Date: 02/26/22 Status: Ordered Breo Ellipta 100 mcg-25 mcg/inh inhalation powder 1 puffs, Inhalation, Daily, # 3 each, 3 Refills, 02/16/22 12:14:00 EDT, [facility] #[id number], no substitutuion - brand name necessary, 1 [...] pack/packet, 0 Refills, Soft Stop, 07/18/20 15:15:00 EST,[facility] #[id number], 165.5, cm, 05/19/20 10:10:00 EST, Height, 102.1, kg, 09/08/19 15:11:00EST, Dry Weight Start Date: 07/18/20 Status: Ordered Excedrin By Mouth, Every 6 hours, 0 Refills, Maintenance, 05/19/20 10:13:00 EST Start Date: 05/19/20 Status: Ordered nabumetone 500 mg oral tablet 1 tablet = 500 mg, By Mouth, 2 times a day, as needed for antiinflammatory, # 28 tablet, 1 Refills,Maintenance, 02/16/22 12:16:00 EDT, Tablet, [facility] #[id number], 162.56, cm, 02/02/22 15:09:00 EDT, Height, 112.1, [...] Personnel Name: Boston Grissom MD Position: S Primary Care Physician Member Role: PCP Address: Address: [address] [place] [address]- Care Team Related Persons Name: ANTWON GARCIA Address: home [address] [place] [address]
--- OUTSIDE RECORDS SUMMARY | 2023-11-29 09:32 | XMS_ITS | Continuity of Care Document ---
Author Organization [facility] Adult Address [address] [place] [address]- Care Team Providers Care Sole Stainer Name Role Phone Boston Grissom MD Primary Care Physician [phone] Encounter [facility] [place] Date(s): 11/20/23 - 11/27/23 [facility] [address] [place] [address]- Encounter Diagnosis Chronic asthma without complication(Discharge Diagnosis) - 11/20/23 Severe obesity(Discharge Diagnosis) - 11/20/23 Attending Physician: Boston Grissom MD Allergies, Adverse Reactions, Alerts Substance Reaction Severity Status Flovent chest pain Active Nuts anaphalaxis Active Immunizations Given and Recorded Vaccine Date Status Refusal Reason influenza virus vaccine, inactivated 07/02/22 Gustavo rded influenza virus vaccine, inactivated 1 09/25/21 Gi jennifer influenza virus vaccine, inactivated 04/14/09 Give n [id number] 12y+ bivalent booster vax 07/02/22 Recorded SARS-CoV-2 (COVID-19) mRNA BNT-162b2 vac 07/03/21 Recorded SARS-CoV-2 (COVID-19) mRNA-1273 vaccine 09/07/20 R ecorded SARS-CoV-2 (COVID-19) mRNA-1273 vaccine 08/10/20 R ecorded tetanus/diphtheria/pertussis, acel(Tdap) 02/18/17 Given influ virus vac, H1N1, inactive(oldterm) 2 05/06/09 Given Pneumococcal Poly (PPV23) (oldterm) 06/11/07 Given Tet/Diphth/Acel, Pertussis (oldterm) 3 12/25/06 Gi jennifer 1Result Comment: [facility]:[id number] 2Admin Note: Manufactured by: [employer]. 3Admin Note: SANOFI PASTEUR Medications Albuterol (Eqv-ProAir HFA) 90 mcg/inh inhalation aerosol 2 puffs, Inhalation, Every 4 hours, PRN NEEDED FOR WHEEZING, # 8.5 Gm, 5 Refills, 03/12/23 10:03:00 EDT, [facility] #[id number], 16, 2 puffs Inhalation Every 4 hours,PRN: NEEDED FOR WHEEZING, 162, cm, 01/13/23 7:02:00 EDT, Height, 115.9, kg,... Start Date: 03/12/23 Status: Ordered Breo Ellipta 100 mcg-25 mcg/inh inhalation powder 1 puffs, Inhalation, Daily, # 3 each, 3 Refills, Maintenance, 03/22/23 13:52:00 EDT, [facility] #[id number], 1 puffs Inhalation Daily, 162, cm, 01/13/23 7:02:00 EDT, Height, 115.9, kg, 01/11/23 12:29:00 EDT, Dry Weight Start Date: 03/22/23 Status: Ordered Breo Ellipta 100 mcg-25 mcg/inh inhalation powder 1 puffs, Inhalation, Daily, # 180 each, 3 Refills, Maintenance, 07/18/23 18:06:00 EST, [facility], 90, Brand name medically necessary - no substitutions, 1 puffs Inhalation Daily, 163, cm, 07/10/23 15:31:00 EST, Height, 127.5, kg, /... Start Date: 07/18/23 Status: Ordered EpiPen 2-Gage 0.3 mg injectable kit See Instructions, Intramuscular Once, # 1 pack/packet, 0 Refills, Soft Stop, 07/18/20 15:15:00 EST,[facility] #[id number], 165.5, cm, 05/19/20 10:10:00 EST, Height, 102.1, kg, 09/08/19 15:11:00EST, Dry Weight Start Date: 07/18/20 Status: Ordered Problem List Condition Confirmation Course [...] Effective Dates Health Status Clinical Service Informant Chronic asthma without complication Discharge Diagnosis 11/20/23 Severe obesity Discharge Diagnosis 11/20/23 Vital Signs Most recent to oldest [Reference Range]: 1 Height 163 cm (11/20/23 6:57 AM) Weight 115.7 kg (11/20/23 6:57 AM) Oxygen Saturation [94-100 %] 98 % (11/20/23 6:57 AM) Pulse Rate [55-90 bpm] 91 bpm *H* (11/20/23 6:57 AM) Body Mass Index [18.5-24.99 kg/m2] 43.55 kg/m2 *>HHI* (11/20/23 6:57 AM) Blood Pressure [90-138/55-84 mm Hg] 111/ 71mm Hg (11/20/23 6:57 AM) Temperature [96.8-100.4 DegF] 98.4 DegF (11/20/23 6:57 AM) Blood pressure sites Arm, left (11/20/23 6:57 AM) Temperature Route Oral (11/20/23 6:57 AM) Social History Social History Type Response Smoking Status Former smoker, quit more than 30 days ago entered on: 02/01/21 Sex Note * Sujata Frias [place]: PERFORM Event Display: Patient Education/Instruction Authored Date: [id number] Ambulatory Adult Visit Summary [facility] [address] [place] [address] Name: RON GARCIA : 1980?? Visit: 11/20/2023 06:56?? Ambulatory Visit Instructions ?? Your Care Team Primary Care Provider Boston Grissom MD? This Visit Provider Boston Grissom MD Your Diagnosis Annual physical exam IFG (impaired fasting glucose) Breast cancer screening Screening, ischemic heart disease Myalgia Joint pain Vitamin D deficiency Vitals Signs Temperature: 98.4 DegF Height: 163 cm Pulse Rate:??91 bpm??High Weight: 115.7 kg Systolic Blood Pressure: 111 mm Hg Body Mass Index:??43.55 kg/m2??Critical Diastolic Blood Pressure: 71 mm Hg Body surface area: 2.29 Oxygen Saturation: 98 % ?? What to do next Instructions From Your Provider You had a normal colonoscopy??in 2021??and so you do not need to have another colonoscopy until theyear 2031 ?? Your last Pap smear was normal in the year 2021 Follow-Up Appointments Follow Up with??Boston Grissom MD When:??11/27/2024 07:00 AM EDT Why: Physical?? Where: [address] [place] [address]- Future Orders MM Digital Mammo Screening, Routine, Reason for Exam: Screening, Conditional Orders: MM Diag/US Breast/Guided Asp/Breast Bx, Once, *Est. 11/20/23 Glucose Level - Routine, Once, 11/20/23 7:23:00 EDT, Order for Today, [facility], Blood?? Hemoglobin A1C (Monitoring) - Routine, Once, 11/20/23 7:23:00 EDT, Order for Today, [facility], Blood?? Lipid Panel - Routine, Once, 11/20/23 7:23:00 EDT, Order for Today, [facility], Blood?? Sedimentation Rate - Routine, Once, 11/20/23 7:23:00 EDT, Order for Today, [facility], Blood?? CBC w/ Differential - Routine, Once, 11/20/23 7:23:00 EDT, Order for Today, [facility], Blood?? C Reactive Protein - Routine, Once, 11/20/23 7:23:00 EDT, Order for Today, [facility], Blood?? JEEVAN Screen - Routine, Once, 11/20/23 7:23:00 EDT, Future Order, [facility], Blood?? Lyme Disease Ab Screen - Routine, Once, 11/20/23 7:23:00 EDT, Future Order, [facility], Blood?? Ehrlichia Ab - Routine, Once, 11/20/23 7:24:00 EDT, Future Order, [facility], Blood?? CPK Total Only (CK Total Only) - Routine, Once, 11/20/23 7:24:00 EDT, Future Order, [facility], Blood?? TSH with T4 Reflex (Adults Only) - Routine, Once, 11/20/23 7:24:00 EDT, Order for Today, [facility], Blood?? Vitamin D 25 Hydroxy Level (25 OH Vitamin D Level) - Routine, Once, 11/20/23 7:33:00 EDT, Future Order, [facility], Blood?? Medications The list below reflects the information in our records and provided by you today along with any changes made during this visit. Please continue your medications until treatment is completed or stopped by your provider. If this is different from the information you have or there are other questions,please contact the prescribing provider. What How Much When Instructions Unchanged Albuterol (Albuterol (Eqv-ProAir HFA) 90 mcg/ inh inhalation aerosol) 2 puff(s) Inhalation Every 4 hours as needed for NEEDED FOR WHEEZING Unchanged EPINEPHrine (EpiPen 2-Gage 0.3 mg injectable kit) See instructions Intramuscular Once ?? Unchanged fluticasone-vilanterol (Breo Ellipta 100 mcg-25 mcg/ inh inhalation powder) 1 puff(s) Inhalation Daily Unchanged fluticasone-vilanterol (Breo Ellipta 100 mcg-25 mcg/ inh inhalation powder) 1 puff(s) Inhalation Daily ?? What How Much When Comments Stop Taking Acetaminophen (acetaminophen 325 mg oral tablet) 650 Milligram Oral Every 6 hours May take OTC not to exceed 3000 mg/ day ?? Stop Taking Aspirin (Aspirin Tablet) 325 Milligram Oral Twice a day Stop Taking Benzonatate (benzonatate 100 mg oral capsule) See instructions 1-2 capsule(s) By Mouth up to 3 times a day, As needed for Cough ?? Stop Taking Budesonide-Formoterol (budesonide-formoterol 160 mcg-4.5 mcg/ inh inhalation aerosol with adapter) 2 puff(s) Inhalation Twice a day to replace Breo ?? Stop Taking Cyclobenzaprine (cyclobenzaprine 5 mg oral tablet) 1 tab(s) Oral PRN ?? Stop Taking Docusate (Colace Capsule) 100 Milligram Oral Twice a day Stop Taking Pantoprazole (pantoprazole 40 mg oral delayed release tablet) 40 Milligram Oral Daily Stop Taking Polyethylene Glycol 3350 (MiraLax Powder) 17 gram Oral Daily as needed for Constipation Stop Taking Senna (senna 187 mg oral tablet) 1 tab(s) Oral Daily at Bedtime as needed for as needed for constipation Test Performed Below is a partial list of the tests performed during your Visit. You may have had other tests and procedures not included in this list. Please discuss all test results with your provider. 25 OH Vitamin D Level?-- Results Pending -- JEEVAN Screen?-- Results Pending -- C Reactive Protein?-- Results Pending -- CBC w/ Differential?-- Results Pending -- CK Total Only?-- Results Pending -- Ehrlichia Ab?-- Results Pending -- Glucose Level?-- Results Pending -- Hemoglobin A1C (Monitoring)?-- Results Pending -- Lipid Panel?-- Results Pending -- Lyme Disease Ab Screen?-- Results Pending -- Sedimentation Rate?-- Results Pending -- TSH with T4 Reflex (Adults Only)?-- Results Pending -- You will be contacted within 72 hours with your results. Medications and Immunizations Administered Medications Given During Visit No medications given during this visit.?? Allergies (NKA means No Known Allergies) Flovent??(chest pain) Nuts??(anaphalaxis) Common Emergency Awareness Tips IS IT A [...] are strongly encouraged to quit. Please call [facility] at [phone] or [phone] ([phone]) or log in to [email or web address] for referrals to smoking cessation programs. ?? The National Suicide Prevention Hotline is available 04/02 if you or someone you know needs to find a reason to keep living. By calling 5-766-352-Foneshow (4024) you'll be connected to a skilled, trained counselor at a crisis center in your area. [facility] You can view and manage your care through the patient portal or by using a health care julianna of your choosing. [employer] is a website that allows you to securely view your medical information including your hospital discharge summary, office visit summaries, medications and follow-up visits. You can also request appointments, renew medications, and request access to your medical information using a health care julianna of your choosing, or just ask a question. You can enroll at [email or web address] or register during your next office visit. [facility], in keeping with [facility] guidance, no longer requires face masks for staff, patientsor visitors in most situations. Similiar to time spent indoors at other locations, there is the chance that you were exposed to repiratory viruses during your time with us (such as flu or COVID-19). If you develop symptoms concerning for a viral respiratory infection, please seek testing (and treatment if indicated) from your medical provider or home test kit. ?? Disclaimer: The information provided is of a general nature and is intended to be used in conjunction with the recommendations and advice of your health care practitioner. Every effort has been made to ensure that the information provided is accurate and complete at the time it is provided to you however, as your needs change, or, as new information becomes available, different or additional instructions may be required. ?? If you have questions, please consult with your primary care provider or pharmacist, as appropriate. This information is not intended to serve as substitution for assessment and evaluation by a qualified health care provider. If you do not have a primary care provider, you may find a [facility] provider by calling [facility] at [phone]. Patient Care team information Care Team Personnel Name: Boston Grissom MD Position: [facility] Physician - Primary Care Member Role: PCP Address: Address: [address] [place] [address]- Care Team Related Persons Name: ANTWON GARCIA Address: home [address] [place] [address]
--- OUTSIDE RECORDS SUMMARY | 2023-11-29 09:32 | XMS_ITS | Continuity of Care Document ---
Author Organization [facility] Adult Address [address] [place] [address]- Care Team Providers Care Business Supervisor Name Role Phone Boston Grissom MD Primary Care Physician Encounter [facility] [place] Date(s): 09/26/22 - 10/03/22 [facility] Adult [address] [place] [address]- Encounter Diagnosis ASTHMA(Discharge Diagnosis) - 09/26/22 Morbid obesity with BMI of 40.0-44.9, adult(Discharge Diagnosis) - 09/26/22 Attending Physician: Boston Grissom MD Allergies, Adverse Reactions, Alerts Substance Reaction Severity Status Flovent chest pain Active Nuts anaphalaxis Active Immunizations Given and Recorded Vaccine Date Status Refusal Reason influenza virus vaccine, inactivated 07/02/22 Gustavo rded influenza virus vaccine, inactivated 1 09/25/21 Gi jennifer influenza virus vaccine, inactivated 04/14/09 Give n [id number] 12y+ bivalent booster vax 07/02/22 Recorded SARS-CoV-2 (COVID-19) mRNA BNT-162b2 vac 07/03/21 Recorded SARS-CoV-2 (COVID-19) mRNA-1273 vaccine 09/07/20 R ecorded SARS-CoV-2 (COVID-19) mRNA-1273 vaccine 08/10/20 R ecorded tetanus/diphtheria/pertussis, acel(Tdap) 02/18/17 Given influ virus vac, H1N1, inactive(oldterm) 2 05/06/09 Given Pneumococcal Poly (PPV23) (oldterm) 06/11/07 Given Tet/Diphth/Acel, Pertussis (oldterm) 3 12/25/06 Gi jennifer 1Result Comment: [facility]:[id number] 2Admin Note: Manufactured by: [employer]. 3Admin Note: [employer] Medications Albuterol (Eqv-ProAir HFA) 90 mcg/inh inhalation aerosol 2 puffs, Inhalation, Every 4 hours, PRN NEEDED FOR WHEEZING, # 8.5 Gm, 5 Refills, 04/25/22 9:56:00 EDT, [facility] #[id number], 16, 2 puffs Inhalation Every 4 hours,PRN: NEEDED FOR WHEEZING, 162.56, cm, 04/19/22 9:56:00 EDT, Height, 112.1, k... Start Date: 04/25/22 Status: Ordered albuterol 0.083% inhalation solution 3 mL = 2.5 mg, Inhalation, Every 6 hours, PRN for wheezing, # 60 each, 1 Refills, Maintenance, 02/26/22 9:27:00 EDT, Solution, [facility] #[id number], Partial fill upon patient request if the prescription is for a schedule II opioid drug., 162.56... Start Date: 02/26/22 Status: Ordered Breo Ellipta 100 mcg-25 mcg/inh inhalation powder 1 puffs, Inhalation, Daily, # 3 each, 3 Refills, 02/16/22 12:14:00 EDT, [facility] #[id number], no substitutuion - brand name necessary, 1 [...] pack/packet, 0 Refills, Soft Stop, 07/18/20 15:15:00 EST,[facility] #[id number], 165.5, cm, 05/19/20 10:10:00 EST, Height, 102.1, kg, 09/08/19 15:11:00EST, Dry Weight Start Date: 07/18/20 Status: Ordered Excedrin By Mouth, Every 6 hours, 0 Refills, Maintenance, 05/19/20 10:13:00 EST Start Date: 05/19/20 Status: Ordered nabumetone 500 mg oral tablet 1 tablet = 500 mg, By Mouth, 2 times a day, as needed for antiinflammatory, # 28 tablet, 1 Refills,Maintenance, 02/16/22 12:16:00 EDT, Tablet, [facility] #[id number], 162.56, cm, 02/02/22 15:09:00 EDT, Height, 112.1, [...] Diagnosis Diagnosis Type Effective Dates Health Status inical Service Informant ASTHMA Discharge Diagnosis 09/26/22 Morbid obesity with BMI of 40.0-44.9, adult Discharge Diagnosis 09/26/22 Vital Signs Most recent to oldest [Reference Range]: 1 Height 162.56 cm (09/26/22 1:58 PM) Weight 115.0 kg (09/26/22 1:58 PM) Oxygen Saturation [94-100 %] 98 % (09/26/22 1:58 PM) Pulse Rate [55-90 bpm] 88 bpm (09/26/22 1:58 PM) Body Mass Index [18.5-24.99 kg/m2] 43.52 kg/m2 *>HHI* (09/26/22 1:58 PM) Blood Pressure [90-138/55-84 mm Hg] 128/ 72mm Hg (09/26/22 1:58 PM) Mode of Delivery (Oxygen) Room air (09/26/22 1:58 PM) Blood pressure sites Arm, left (09/26/22 1:58 PM) Social History Social History Type Response Smoking Status Former smoker, quit more than 30 days ago entered on: 02/01/21 Sex Note * Shahnaz Jain [place]: PERFORM, SIGN, VERIFY Event Display: Patient Education/Instruction Authored Date: [id number] [facility] *[facility] [place]ian Clinical Summary Name RON GARCIA Age 42 Years 1980 PCP Boston Grissom MD PCP Visit Date 09/26/2022 13:54:00 Additional Instructions: Scheduled Appointments?? Future Appointments ?No Future Appointments Scheduled Follow-Up Instructions ?? Diagnosis Encounter for general adult medical examination without abnormal findings; Encounter for screening for cardiovascular disorders; Encounter for screening for diabetes mellitus Medications: Please continue your medications until treatment is completed or stopped by your provider. Discuss any questions related to medications with your provider. Medications to Continue with No Changes These medications were not printed or sent to your pharmacy Albuterol (Albuterol (Eqv-ProAir HFA) 90 mcg/inh inhalation aerosol) 2 puff(s) Inhalation every 4 hours as needed NEEDED FOR WHEEZING. Refills: 5. Next Dose: Albuterol (albuterol 0.083% inhalation solution) 3 Milliliter Inhalation every 6 hours as needed for wheezing. Refills: 1. Next Dose: Apap/Asa/Caffeine (Excedrin) Oral every 6 hours. Next Dose: Cyanocobalamin (Vitamin B12) Next Dose: Cyclobenzaprine (cyclobenzaprine 5 mg oral tablet) 1 tab(s) Oral. PRN. Next Dose: EPINEPHrine (EpiPen 2-Gage 0.3 mg injectable kit) Intramuscular Once. Refills: 0. Next Dose: fluticasone-vilanterol (Breo Ellipta 100 mcg-25 mcg/inh inhalation powder) 1 puff(s) Inhalation Daily. Refills: 3. Next Dose: Nabumetone (nabumetone 500 mg oral tablet) 1 tab(s) Oral twice a day for 14 Days. as needed for antiinflammatory. Refills: 1. Next Dose: No Longer Take the Following Medications Escitalopram (escitalopram 10 mg oral tablet) 1.5 tab(s) Oral Daily at Bedtime. dose increase. Refills: 11. Allergy Info:?? Nuts; Flovent Medications Given This Visit Future Orders ?Lipid Panel? Order Date:09/26/22?- Complete on or after?09/26/22 ?Glucose Level? Order Date:09/26/22?- Complete on or after?09/26/22 Vital Signs Height 162.56 cm Weight 115.0 kg BMI 43.52 kg/m2 Blood Pressure 128 mm Hg/72 mm Hg Temperature Pulse Rate 88 bpm Respiratory Rate 02 Sat Mode of Delivery 98 %/Room air You can now view a summary of your hospital visit from the comfort of your home through a free online portal called [employer]. [employer] is a website that allows you to securely view your medical information including discharge summary, medications and follow-up visits. ??You can alsosend a secure electronic message to your doctor???s office to request appointments, renew medications or just ask a question. You can enroll at [email or web address] or register during your next office [...] primary care provider, you may find a [facility] provider by calling [facility] at [phone]. For information about the plan of care [...] Team Personnel Name: Boston Grissom MD Position: [facility] Primary Care Physician Member Role: PCP Address: Address: [address] [place] [address]- Care Team Related Persons Name: ANTWON GARCIA Address: home [address] [place] [address]
--- OUTSIDE RECORDS SUMMARY | 2023-11-29 09:32 | XMS_ITS | Continuity of Care Document ---
Author Organization [facility] Adult Address [address] [place] [address]- Care Team Providers Care Tie Tamper Name Role Phone Boston Grissom MD Primary Care Physician Encounter [facility] [place] Date(s): 08/10/19 - 08/17/19 [facility] [address] [place] [address]- [facility] Encounter Diagnosis Lightheadedness(Discharge Diagnosis) - 08/10/19 Attending Physician: Boston Grissom MD Allergies, Adverse Reactions, Alerts Substance Reaction Severity Status Flovent Active Nuts anaphalaxis Active Immunizations Given and Recorded Vaccine Date Status Refusal Reason tetanus/diphtheria/pertussis, acel(Tdap) 02/18/17 Given influ virus vac, H1N1, inactive(oldterm) 1 05/06/09 Given influenza virus vaccine, inactivated 04/14/09 Give n Pneumococcal Poly (PPV23) (oldterm) 06/11/07 Given Tet/Diphth/Acel, Pertussis (oldterm) 2 12/25/06 Gi jennifer 1Admin Note: Manufactured by: [employer] 2Admin Note: SANOFI PASTEUR Medications [...] 08/28/17 16:19:47, Aerosol, Route to Pharmacy Electronically, [id number], [facility] [id number] Start Date: 08/28/17 Status: Ordered scopolamine 1.5 [...] 08/10/19 15:17:00 EST, Route to Pharmacy Electronically, [facility] #[id number], 165.5, cm, 08/10/19 14:42:00 EST, Height Start [...] Dates Health Status Cl inical Service Informant Lightheadedness Discharge Diagnosis 08/10/19 Vital Signs Most recent to oldest [Reference Range]: 1 Height 165.5 cm (08/10/19 2:42 PM) Weight 100.7 kg (08/10/19 2:42 PM) Oxygen Saturation [94-100 %] 94 % (08/10/19 2:42 PM) Pulse Rate [55-90 bpm] 70 bpm (08/10/19 2:42 PM) Body Mass Index [18.5-24.99] 36.76 *>HHI* (08/10/19 2:42 PM) Blood Pressure [90-138/55-84 mm Hg] 104/ 76mm Hg (08/10/19 2:42 PM) Temperature [96.8-100.4 DegF] 97.8 DegF (08/10/19 2:42 PM) Blood pressure sites Arm, left (08/10/19 2:42 PM) Temperature Route Temporal (08/10/19 2:42 PM) Social History Social History Type Response Smoking Status Former smoker; Type: Cigarettes; Other: on and off 10 years; entered on: 03/12/18 Sex
--- OUTSIDE RECORDS SUMMARY | 2023-11-29 09:32 | XMS_ITS | Continuity of Care Document ---
Author Organization [facility] [employer] [facility] Address [address], [address] [place] [address]- Care Team Providers Care Senior Account Representative Name Role Phone Jaciel WILSON, [place] Primary Care Physician [phone] [place] [facility] [place](s[place] 05/03/21 - 06/02/21 [facility] [employer] [address], [address] [place], [place] [address] Attending Physician: Scott Murcia Admitting Physician: AdmScott [...] 25 each, 5 Refills, Maintenance, 07/20/20 14:16:00 [facility], 165.5, cm, 07/19/20 18:29:00 EST, Height, 102.1, kg, 09/08/19 15:11:00 EST, Dry Weight Start Date: 07/20/20 Status: Ordered Breo Ellipta 100 mcg-25 mcg/inh inhalation powder 1 puffs, Inhalation, Daily, # 1 each, 11 Refills, Maintenance, 10/03/20 15:46:00 EDT, Powder, [facility] #[facility]14, 1 puffs Inhalation Daily, 165.5, cm, 09/20/20 13:58:00 EST, Height, 102.1, kg, 09/08/19 15:11:00 EST, Dry Weight Start Date: 10/03/20 Status: Ordered cyclobenzaprine 5 mg oral tablet 1 tablet, By Mouth, 3 times a day, PRN NEEDED FOR LEG PAIN, # 30 tablet, 1 Refills, Physician Stop 06/13/21 14:06:00 EST, 05/29/21 14:05:00 EST, [email or web address] #[id number], 163, cm, 05/18/21 10:53:00 EDT, Height, 109, kg, 02/01/21 19:07:00 EDT, . Start Date: 05/29/21 Stop Date: 06/13/21 Status: Ordered EpiPen 2-Gage 0.3 mg injectable kit See Instructions, Intramuscular Once, # 1 pack/packet, 0 Refills, Soft Stop, 07/18/20 15:15:00 EST,[email or web address] #[id number], 165.5, cm, 05/19/20 10:10:00 EST, Height, 102.1, [...] 16:16:00 EDT, Aerosol, Route to Pharmacy Electronically, [id number], [facility] #69980, 165.5, cm, 09/08/19 15:0... Start Date: 03/30/20 [...]
--- OUTSIDE RECORDS SUMMARY | 2023-11-29 09:32 | XMS_ITS | Continuity of Care Document ---
Author Organization [facility] Address [address] [place] [address]- Care Team Providers Care Cause Analyst Name Role Phone [place] Grissom MD Primary Care Physician [place] [facility] [place](s[place] 03/22/23 - 04/21/23 [facility] [address] [place] [address]- Attending Physician: Scott Murcia Admitting Physician: Scott Murcia Referring Physician: Scott Murcia Allergies, Adverse Reactions, Alerts Substance Reaction Severity Status Flovent chest pain Active Nuts anaphalaxis Active Immunizations Given and Recorded Vaccine Date Status Refusal Reason influenza virus vaccine, inactivated 07/02/22 Gustavo rded influenza virus vaccine, inactivated 1 09/25/21 Gi jennifer influenza virus vaccine, inactivated 04/14/09 Give n [id number] 12y+ bivalent booster vax 07/02/22 Recorded SARS-CoV-2 (COVID-19) mRNA BNT-162b2 vac 07/03/21 Recorded SARS-CoV-2 (COVID-19) mRNA-1273 vaccine 09/07/20 R ecorded SARS-CoV-2 (COVID-19) mRNA-1273 vaccine 08/10/20 R ecorded tetanus/diphtheria/pertussis, acel(Tdap) 02/18/17 Given influ virus vac, H1N1, inactive(oldterm) 2 05/06/09 Given Pneumococcal Poly (PPV23) (oldterm) 06/11/07 Given Tet/Diphth/Acel, Pertussis (oldterm) 3 12/25/06 Gi jennifer 1Result Comment: [facility][NOTE 3]:[id number] 2Admin Note: Manufactured by: Proenza Schouer. 3Admin Note: SANOFI PASTEUR Medications acetaminophen 325 [...] 8.5 Gm, 5 Refills, 03/12/23 10:03:00 EDT, [facility] #97797, 16, 2 puffs Inhalation Every 4 hours,PRN: [...] each, 3 Refills, Maintenance, 01/28/23 9:16:00 EDT, [facility] #[id number], 90, INHALE 1 PUFF BY MOUTH DAILY, 162, cm, 01/13/23 7:02:00 EDT, Height, 115.9, kg, 01/11/23 12:29:00 EDT, Dry Weight Start Date: 01/28/23 Status: Ordered Breo Ellipta 100 mcg-25 mcg/inh inhalation powder 1 puffs, Inhalation, Daily, # 3 each, 3 Refills, Maintenance, 03/22/23 13:52:00 EDT, [facility] #31687, 1 puffs Inhalation Daily, 162, cm, 01/13/23 [...] pack/packet, 0 Refills, Soft Stop, 07/18/20 15:15:00 EST,[facility] #31013, 165.5, cm, 05/19/20 10:10:00 EST, Height, 102.1, [...] Team Personnel Name: [place] Grissom MD Position: [facility] Physician - Primary Care Member Role: PCP Address: Address: [address] [place] [address]- Care Team Related Persons Name: ANTWON GARCIA Address: home [address] [place] [address]
--- OUTSIDE RECORDS SUMMARY | 2023-11-29 09:32 | XMS_ITS | Continuity of Care Document ---
Author Organization [facility] Address Unknown Care Team Providers Care Swimming Pool Plasterer Helper Name Role Phone [place] Grissom MD Primary Care Physician [phone] [place] [facility] [place] 10/09/21 - 10/16/21 [facility] Encounter Diagnosis Morbid obesity due to excess calories(Discharge Diagnosis) - 10/09/21 Attending Physician: Nagi Apodaca MD Referring Physician: [place] Grissom MD Allergies, [...] 3 12/25/06 Gi jennifer 1Result Comment: [facility]:[id number] 2Admin Note: Manufactured by: [employer] 3Admin Note: SANOFI PASTEUR Medications Albuterol (Eqv-ProAir HFA) 90 mcg/inh inhalation aerosol 2 puffs, Inhalation, Every 4 hours, PRN NEEDED FOR WHEEZING, # 8.5 Gm, 2 Refills, [facility] #27832, 16, INHALE 2 PUFFS BY MOUTH EVERY 4 HOURS NEEDED FOR WHEEZING, 163, cm, 06/21/21 8:48:00 EST, Height, 109, kg, 02/01/21 19:07:00 EDT,... Start Date: 07/03/21 Status: Ordered Breo Ellipta 100 mcg-25 mcg/inh inhalation powder 1 puffs, Inhalation, Daily, # 60 each, 0 Refills, [facility] [place] [facility] #85154, 30, INHALE 1 PUFF BYMOUTH DAILY, 162.56, cm, 10/03/21 13:50:00 EDT, Height, 109.5, kg, 10/03/21 13:50:00 EDT, Dry Weight Start Date: 10/09/21 Status: Ordered EpiPen 2-Gage 0.3 mg injectable kit See Instructions, Intramuscular Once, # 1 pack/packet, 0 Refills, Soft Stop, 07/18/20 15:15:00 EST,[facility] [place] [facility] #35179, 165.5, cm, 05/19/20 10:10:00 EST, Height, 102.1, kg, 09/08/19 15:11:00EST, Dry Weight Start Date: 07/18/20 Status: Ordered escitalopram 10 mg oral tablet 1 tablet = 10 mg, By Mouth, Daily at bedtime, # 30 tablet, 11 Refills, Maintenance, 09/25/21 14:47:00 EDT, [facility] [place] [facility] #93097, Partial fill upon patient request if the [...] Dates Health Status Cl inical Service Informant Morbid obesity due to excess calories Discharge Diagnosis 10/09/21 Vital Signs Most recent to oldest [Reference Range]: 1 Height 162.56 cm (10/09/21 1:19 PM) Weight 110.2 kg (10/09/21 1:19 PM) Pulse Rate [55-90 bpm] 76 bpm (10/09/21 1:19 PM) Body Mass Index [18.5-24.99] 41.7 *>HHI* (10/09/21 1:19 PM) Blood Pressure [90-138/55-84 mm Hg] 105/ 73mm Hg (10/09/21 1:19 PM) Respiratory Rate [16-30 br/min] 16 br/mi n (10/09/21 1:19 PM) Temperature [96.8-100.4 DegF] 97.1 DegF (10/09/21 1:19 PM) Blood pressure sites Arm, right (10/09/21 1:19 PM) Temperature Route Temporal (10/09/21 1:19 PM) Weight Obtained Via Standing scale (10/09/21 1:19 PM) Social History Social History Type Response Smoking Status Former smoker, quit more than 30 days ago entered on: 02/01/21 Sex
--- OUTSIDE RECORDS SUMMARY | 2023-11-29 09:32 | XMS_ITS | Continuity of Care Document ---
Author Organization [facility] Address [address] [place] [address]- Care Team Providers Care Field Rep Name Role Phone [place] Grissom MD Primary Care Physician [phone] Encounter [facility] [place] Date(s): 09/08/19 - 09/18/19 [facility] [address] [place] [address]- [facility] Attending Physician: Scott Murcia Admitting Physician: Scott [...] 12/25/06 Gi jennifer 1Admin Note: Manufactured by: [employer] 2Admin Note: ContextPlaneOFI PASTEUR Medications albuterol 0.083% inhalation solution 3 [...] 08/28/17 16:19:47, Aerosol, Route to Pharmacy Electronically, [id number], [facility] [address] Start Date: 08/28/17 Status: Ordered scopolamine 1.5 [...] 08/10/19 15:17:00 EST, Route to Pharmacy Electronically, [facility] #[id number], 165.5, cm, 08/10/19 14:42:00 EST, Height Start [...]
--- OUTSIDE RECORDS SUMMARY | 2023-11-29 09:32 | XMS_ITS | Continuity of Care Document ---
Author Organization [facility] Address Unknown Care Team Providers Care Staking Press Operator Name Role Phone [place] Grissom MD Primary Care Physician [phone] Encounter [facility] [place] Date(s): 06/21/21 - 06/28/21 [facility] Attending Physician: Anneliese Morse RD Referring Physician: [place] Grissom MD Allergies, Adverse [...] each, 5 Refills, Maintenance, 07/20/20 14:16:00 EST, [facility] #16536, 165.5, cm, 07/19/20 18:29:00 EST, Height, 102.1, kg, 09/08/19 15:11:00 EST, Dry Weight Start Date: 07/20/20 Status: Ordered Breo Ellipta 100 mcg-25 mcg/inh inhalation powder 1 puffs, Inhalation, Daily, # 1 each, 11 Refills, Maintenance, 10/03/20 15:46:00 EDT, Powder, [facility] #91077, 1 puffs Inhalation Daily, 165.5, cm, 09/20/20 13:58:00 EST, Height, 102.1, kg, 09/08/19 15:11:00 EST, Dry Weight Start Date: 10/03/20 Status: Ordered EpiPen 2-Gage 0.3 mg injectable kit See Instructions, Intramuscular Once, # 1 pack/packet, 0 Refills, Soft Stop, 07/18/20 15:15:00 EST,[facility] #18681, 165.5, cm, 05/19/20 10:10:00 EST, Height, 102.1, [...] 16:16:00 EDT, Aerosol, Route to Pharmacy Electronically, [id number], [facility] #38704, 165.5, cm, 09/08/19 15:0... Start Date: 03/30/20 [...] apnea(Confirmed) Active Severe obesity(Confirmed) Active 1both parents Vital Signs Most recent to oldest [Reference Range]: 1 Height 163 cm (06/21/21 8:48 AM) Weight 109.4 kg (06/21/21 8:48 AM) Body Mass Index [18.5-24.99] 41.18 *>HHI* (06/21/21 8:48 AM) Social History Social History Type Response Smoking Status Former smoker, quit more than 30 days ago entered on: 02/01/21 Sex
--- OUTSIDE RECORDS SUMMARY | 2023-11-29 09:32 | XMS_ITS | Continuity of Care Document ---
Author Organization [facility] Address [address] [place] [address]- Care Team Providers Care Internet Marketing Manager Name Role Phone Jaciel WILSON, [place] Primary Care Physician [place] [facility] [place](s): 05/23/20 - 06/22/20 [facility] [address] [place] [address]- Allergies, Adverse Reactions, Alerts Substance Reaction Severity Status Flovent Active Nuts anaphalaxis Active Immunizations Given and Recorded Vaccine Date Status Refusal Reason tetanus/diphtheria/pertussis, acel(Tdap) 02/18/17 Given influ virus vac, H1N1, inactive(oldterm) 1 05/06/09 Given influenza virus vaccine, inactivated 04/14/09 Give n Pneumococcal Poly (PPV23) (oldterm) 06/11/07 Given Tet/Diphth/Acel, Pertussis (oldterm) 2 12/25/06 Gi jennifer 1Admin Note: Manufactured by: [employer] 2Admin Note: SANOFI PASTEUR Medications albuterol 0.083% inhalation solution 3 mL, Inhalation, Every 6 hours, PRN as needed for wheezing, # 25 each, 5 Refills, Maintenance Start Date: 08/04/10 Status: Ordered Breo Ellipta 100 mcg-25 mcg/inh inhalation powder 1 puffs, Inhalation, Daily, # 1 each, 11 Refills, Maintenance, 09/25/19 15:00:00 EDT, Powder, [facility] #91444, 1 puffs Inhalation Daily, 165.5, cm, 09/08/19 15:08:00 EST, Height, 102.1, kg, 09/08/19 15:11:00 EST, Dry Weight Start Date: 09/25/19 Status: Ordered cyclobenzaprine 5 mg oral tablet 1 tablet = 5 mg, By Mouth, 3 times a day, PRN Other, PRN for leg pain, # 30 tablet, 5 Refills, Maintenance, 03/30/20 16:16:00 EDT, [facility] #13711, 165.5, cm, 09/08/19 15:08:00 EST, Height, 102.1, kg, 09/08/19 15:11:00 EST, Dry Weight Start Date: 03/30/20 Status: Ordered EpiPen 2-Gage 0.3 mg injectable kit See Instructions, Intramuscular Once, # 1 pack/packet, 0 Refills, Soft Stop, 05/08/17 14:16:26 Start Date: 05/08/17 Status: Ordered Excedrin By Mouth, Every 6 [...] 16:16:00 EDT, Aerosol, Route to Pharmacy Electronically, [id number], [facility] #49689, 165.5, cm, 09/08/19 15:0... Start Date: 03/30/20 [...] 08/10/19 15:17:00 EST, Route to Pharmacy Electronically, [facility] #09913, 165.5, cm, 08/10/19 14:42:00 EST, Height Start [...]
--- OUTSIDE RECORDS SUMMARY | 2023-11-29 09:32 | XMS_ITS | Continuity of Care Document ---
Author Organization [facility] Address [address] [place] [address]- Care Team Providers Care Strength And Conditioning Coach Name Role Phone [place] Grissom MD Primary Care Physician [place] [facility] [place] 08/24/20 [facility] [address] [place] [address]- Allergies, Adverse Reactions, Alerts Substance Reaction Severity Status Flovent Active Nuts anaphalaxis Active Immunizations Given and Recorded Vaccine Date Status Refusal Reason tetanus/diphtheria/pertussis, acel(Tdap) 02/18/17 Given influ virus vac, H1N1, inactive(oldterm) 1 05/06/09 Given influenza virus vaccine, inactivated 04/14/09 Give n Pneumococcal Poly (PPV23) (oldterm) 06/11/07 Given Tet/Diphth/Acel, Pertussis (oldterm) 2 12/25/06 Gi jennifer 1Admin Note: Manufactured by: [employer] 2Admin Note: SANOFI PASTEUR Medications albuterol 0.083% inhalation solution 3 mL, Inhalation, Every 6 hours, PRN as needed for wheezing, # 25 each, 5 Refills, Maintenance, 07/20/20 14:16:00 EST, [facility] #11471, 165.5, cm, 07/19/20 18:29:00 EST, Height, 102.1, kg, 09/08/19 15:11:00 EST, Dry Weight Start Date: 07/20/20 Status: Ordered Breo Ellipta 100 mcg-25 mcg/inh inhalation powder 1 puffs, Inhalation, Daily, # 1 each, 11 Refills, Maintenance, 09/25/19 15:00:00 EDT, Powder, [facility] #11005, 1 puffs Inhalation Daily, 165.5, cm, 09/08/19 15:08:00 EST, Height, 102.1, kg, 09/08/19 15:11:00 EST, Dry Weight Start Date: 09/25/19 Status: Ordered cyclobenzaprine 5 mg oral tablet 1 tablet = 5 mg, By Mouth, 3 times a day, PRN Other, PRN for leg pain, # 30 tablet, 5 Refills, Maintenance, 03/30/20 16:16:00 EDT, [facility] #09048, 165.5, cm, 09/08/19 15:08:00 EST, Height, 102.1, kg, 09/08/19 15:11:00 EST, Dry Weight Start Date: 03/30/20 Status: Ordered EpiPen 2-Gage 0.3 mg injectable kit See Instructions, Intramuscular Once, # 1 pack/packet, 0 Refills, Soft Stop, 07/18/20 15:15:00 EST,[facility] #76278, 165.5, cm, 05/19/20 10:10:00 EST, Height, 102.1, [...] 16:16:00 EDT, Aerosol, Route to Pharmacy Electronically, [id number], [facility] #12067, 165.5, cm, 09/08/19 15:0... Start Date: 03/30/20 [...] 08/10/19 15:17:00 EST, Route to Pharmacy Electronically, [facility] #80796, 165.5, cm, 08/10/19 14:42:00 EST, Height Start [...]
--- OUTSIDE RECORDS SUMMARY | 2023-11-29 09:32 | XMS_ITS | Continuity of Care Document ---
Author Organization [facility] Address [address] [place] [address]- Care Team Providers Care Public Relations Director Name Role Phone [place] Grissom MD Primary Care Physician En[place] [facility] [place] Date(s): 07/18/20 - 08/17/20 [facility] [address] [place] [address]- Attending Physician: Scott Murcia Admitting Physician: Scott [...] each, 5 Refills, Maintenance, 07/20/20 14:16:00 EST, [facility] #10491, 165.5, cm, 07/19/20 18:29:00 EST, Height, 102.1, kg, 09/08/19 15:11:00 EST, Dry Weight Start Date: 07/20/20 Status: Ordered Breo Ellipta 100 mcg-25 mcg/inh inhalation powder 1 puffs, Inhalation, Daily, # 1 each, 11 Refills, Maintenance, 09/25/19 15:00:00 EDT, Powder, [facility] #18510, 1 puffs Inhalation Daily, 165.5, cm, 09/08/19 15:08:00 EST, Height, 102.1, kg, 09/08/19 15:11:00 EST, Dry Weight Start Date: 09/25/19 Status: Ordered cyclobenzaprine 5 mg oral tablet 1 tablet = 5 mg, By Mouth, 3 times a day, PRN Other, PRN for leg pain, # 30 tablet, 5 Refills, Maintenance, 03/30/20 16:16:00 EDT, [facility] #43475, 165.5, cm, 09/08/19 15:08:00 EST, Height, 102.1, kg, 09/08/19 15:11:00 EST, Dry Weight Start Date: 03/30/20 Status: Ordered EpiPen 2-Gage 0.3 mg injectable kit See Instructions, Intramuscular Once, # 1 pack/packet, 0 Refills, Soft Stop, 07/18/20 15:15:00 EST,[facility] #62945, 165.5, cm, 05/19/20 10:10:00 EST, Height, 102.1, [...] 16:16:00 EDT, Aerosol, Route to Pharmacy Electronically, [id number], [facility] #26653, 165.5, cm, 09/08/19 15:0... Start Date: 03/30/20 [...] 08/10/19 15:17:00 EST, Route to Pharmacy Electronically, [facility] #39695, 165.5, cm, 08/10/19 14:42:00 EST, Height Start [...]
--- OUTSIDE RECORDS SUMMARY | 2023-11-29 09:32 | XMS_ITS | Continuity of Care Document ---
Author Organization [facility] Address [address], [address] [place] [address]- Care Team Providers Care Scan Coordinator Name Role Phone [place] Grissom MD Primary Care Physician Encounter [facility] [place] Date(s): 12/21/21 - 01/20/[address] [facility] [address] [place], [place] [address] Allergies, Adverse Reactions, Alerts Substance Reaction Severity [...] 3 12/25/06 Gi jennifer 1Result Comment: [facility]:[id number] 2Admin Note: Manufactured by: [employer] 3Admin Note: SANOFI PASTEUR Medications Albuterol (Eqv-ProAir HFA) 90 mcg/inh inhalation aerosol 2 puffs, Inhalation, Every 4 hours, PRN NEEDED FOR WHEEZING, # 8.5 Gm, 2 Refills, [facility] #75060, 16, INHALE 2 PUFFS BY MOUTH EVERY 4 HOURS NEEDED FOR WHEEZING, 163, cm, 06/21/21 8:48:00 EST, Height, 109, kg, 02/01/21 19:07:00 EDT,... Start Date: 07/03/21 Status: Ordered Breo Ellipta 100 mcg-25 mcg/inh inhalation powder 1 puffs, Inhalation, Daily, # 3 each, 2 Refills, 10/20/21 9:30:00 EDT, [facility] #01916,1 puffs Inhalation Daily, 162.56, cm, 10/09/21 13:19:00 EDT, Height, 109.5, kg, 10/03/21 13:50:00 EDT, Dry Weight Start Date: 10/20/21 Status: Ordered EpiPen 2-Gage 0.3 mg injectable kit See Instructions, Intramuscular Once, # 1 pack/packet, 0 Refills, Soft Stop, 07/18/20 15:15:00 EST,[facility] #51105, 165.5, cm, 05/19/20 10:10:00 EST, Height, 102.1, kg, 09/08/19 15:11:00EST, Dry Weight Start Date: 07/18/20 Status: Ordered escitalopram 10 mg oral tablet 1.5 tablet = 15 mg, By Mouth, Daily at bedtime, dose increase, # 45 tablet, 11 Refills, Maintenance, 11/06/21 15:12:00 EDT, [facility] #88760, Partial fill upon patient request if the [...]
--- OUTSIDE RECORDS SUMMARY | 2023-11-29 09:32 | XMS_ITS | Continuity of Care Document ---
Author Organization [facility] Address [address] [place] [address]- Care Team Providers Care Weatherization And Housing Inspector Name Role Phone Jaciel WILSON, [place] Primary Care Physician [place] [facility] [place] Date(s): 05/23/20 - 06/22/20 [facility] [address] [place] [address]- Allergies, Adverse Reactions, Alerts Substance Reaction Severity Status Flovent Active Nuts anaphalaxis Active Immunizations Given and Recorded Vaccine Date Status Refusal Reason tetanus/diphtheria/pertussis, acel(Tdap) 02/18/17 Given influ virus vac, H1N1, inactive(oldterm) 1 05/06/09 Given influenza virus vaccine, inactivated 04/14/09 Give n Pneumococcal Poly (PPV23) (oldterm) 06/11/07 Given Tet/Diphth/Acel, Pertussis (oldterm) 2 12/25/06 Gi jennifer 1Admin Note: Manufactured by: [employer] 2Admin Note: SANOFI PASTEUR Medications albuterol 0.083% inhalation solution 3 mL, Inhalation, Every 6 hours, PRN as needed for wheezing, # 25 each, 5 Refills, Maintenance Start Date: 08/04/10 Status: Ordered Breo Ellipta 100 mcg-25 mcg/inh inhalation powder 1 puffs, Inhalation, Daily, # 1 each, 11 Refills, Maintenance, 09/25/19 15:00:00 EDT, Powder, [facility] #69324, 1 puffs Inhalation Daily, 165.5, cm, 09/08/19 15:08:00 EST, Height, 102.1, kg, 09/08/19 15:11:00 EST, Dry Weight Start Date: 09/25/19 Status: Ordered cyclobenzaprine 5 mg oral tablet 1 tablet = 5 mg, By Mouth, 3 times a day, PRN Other, PRN for leg pain, # 30 tablet, 5 Refills, Maintenance, 03/30/20 16:16:00 EDT, [facility] #27820, 165.5, cm, 09/08/19 15:08:00 EST, Height, 102.1, [...] 16:16:00 EDT, Aerosol, Route to Pharmacy Electronically, [id number], [facility] #46745, 165.5, cm, 09/08/19 15:0... Start Date: 03/30/20 [...] 08/10/19 15:17:00 EST, Route to Pharmacy Electronically, [facility] #65530, 165.5, cm, 08/10/19 14:42:00 EST, Height Start [...]
--- OUTSIDE RECORDS SUMMARY | 2023-11-29 09:32 | XMS_ITS | Continuity of Care Document ---
Author Organization [facility] Address [address] [place] [address]- Care Team Providers Care Overage Shortage And Damage Clerk Name Role Phone Jaciel WILSON, [place] Primary Care Physician [phone] [place] [facility] [place]03[place]23 - 10/03/23 [facility] [address] [place] [address]- Allergies, Adverse Reactions, Alerts Substance Reaction Severity Status Flovent chest pain Active Nuts anaphalaxis Active Immunizations Given and Recorded Vaccine Date Status Refusal Reason influenza virus vaccine, inactivated 07/02/22 Gustavo rded influenza virus vaccine, inactivated 1 09/25/21 Gi jennifer influenza virus vaccine, inactivated 04/14/09 Give n [id number] 12y+ bivalent booster vax 07/02/22 Recorded SARS-CoV-2 (COVID-19) mRNA BNT-162b2 vac 07/03/21 Recorded SARS-CoV-2 (COVID-19) mRNA-1273 vaccine 09/07/20 R ecorded SARS-CoV-2 (COVID-19) mRNA-1273 vaccine 08/10/20 R ecorded tetanus/diphtheria/pertussis, acel(Tdap) 02/18/17 Given influ virus vac, H1N1, inactive(oldterm) 2 05/06/09 Given Pneumococcal Poly (PPV23) (oldterm) 06/11/07 Given Tet/Diphth/Acel, Pertussis (oldterm) 3 12/25/06 Gi jennifer 1Result Comment: [facility]:70522-720-91 2Admin Note: Manufactured by: [employer] 3Admin Note: SANOFI PASTEUR Medications acetaminophen [...] 8.5 Gm, 5 Refills, 03/12/23 10:03:00 EDT, [facility] #17891, 16, 2 puffs Inhalation Every 4 hours,PRN: [...] 0 Refills, Maintenance, 07/10/23 16:07:00 EST, Capsule, [facility] #[id number], Partial fill upon patient request if the prescription is for a schedule II opi... Start Date: 07/10/23 Status: Ordered Breo Ellipta 100 mcg-25 mcg/inh inhalation powder 1 puffs, Inhalation, Daily, # 3 each, 3 Refills, Maintenance, 03/22/23 13:52:00 EDT, [facility] #42448, 1 puffs Inhalation Daily, 162, cm, 01/13/23 7:02:00 EDT, Height, 115.9, kg, 01/11/23 12:29:00 EDT, Dry Weight Start Date: 03/22/23 Status: Ordered Breo Ellipta 100 mcg-25 mcg/inh inhalation powder 1 puffs, Inhalation, Daily, # 180 each, 3 Refills, Maintenance, 07/18/23 18:06:00 EST, [facility], 90, Brand name [...] 07/17/23 8:19:00 EST, Route to Pharmacy Electronically, [id number],[facility] #75894, 163, cm, 07/10/23 15:3... Start Date: 07/17/23 [...] pack/packet, 0 Refills, Soft Stop, 07/18/20 15:15:00 EST,[facility] #36218, 165.5, cm, 05/19/20 10:10:00 EST, Height, 102.1, [...] Name: [place] Grissom MD Position: [facility] Physician - Primary Care Member Role: PCP Address: Address: [address] [place] [address]- Care Team Related Persons Name: ANTWON GARCIA Address: home [address] [place] [address]
--- OUTSIDE RECORDS SUMMARY | 2023-11-29 09:32 | XMS_ITS | Continuity of Care Document ---
Author Organization [facility] Adult Address [address] [place] [address]- Care Team Providers Care Spear Fisher Name Role Phone Jaciel WILSON, [place] Primary Care Physician [phone] Encounter [facility] Date(s): 07/03/23 - 08/02/23 [facility] [address] [place] [address]- Allergies, Adverse Reactions, Alerts Substance Reaction Severity Status Flovent chest pain Active Nuts anaphalaxis Active Immunizations Given and Recorded Vaccine Date Status Refusal Reason influenza virus vaccine, inactivated 07/02/22 Ugstavo rded influenza virus vaccine, inactivated 1 09/25/21 Gi jennifer influenza virus vaccine, inactivated 04/14/09 Give n [id number] 12y+ bivalent booster vax 07/02/22 Recorded SARS-CoV-2 (COVID-19) mRNA BNT-162b2 vac 07/03/21 Recorded SARS-CoV-2 (COVID-19) mRNA-1273 vaccine 09/07/20 R ecorded SARS-CoV-2 (COVID-19) mRNA-1273 vaccine 08/10/20 R ecorded tetanus/diphtheria/pertussis, acel(Tdap) 02/18/17 Given influ virus vac, H1N1, inactive(oldterm) 2 05/06/09 Given Pneumococcal Poly (PPV23) (oldterm) 06/11/07 Given Tet/Diphth/Acel, Pertussis (oldterm) 3 12/25/06 Gi jennifer 1Result Comment: [facility]:86110-144-03 2Admin Note: Manufactured by: [employer] 3Admin Note: SANOFI PASTEUR Medications acetaminophen [...] 8.5 Gm, 5 Refills, 03/12/23 10:03:00 EDT, [facility] #[id number], 16, 2 puffs Inhalation Every 4 hours,PRN: [...] 0 Refills, Maintenance, 07/10/23 16:07:00 EST, Capsule, [facility] #[id number], Partial fill upon patient request if the prescription is for a schedule II opi... Start Date: 07/10/23 Status: Ordered Breo Ellipta 100 mcg-25 mcg/inh inhalation powder 1 puffs, Inhalation, Daily, # 3 each, 3 Refills, Maintenance, 03/22/23 13:52:00 EDT, [facility] #[id number], 1 puffs Inhalation Daily, 162, cm, 01/13/23 7:02:00 EDT, Height, 115.9, kg, 01/11/23 12:29:00 EDT, Dry Weight Start Date: 03/22/23 Status: Ordered Breo Ellipta 100 mcg-25 mcg/inh inhalation powder 1 puffs, Inhalation, Daily, # 180 each, 3 Refills, Maintenance, 07/18/23 18:06:00 EST, [facility], 90, Brand name [...] 07/17/23 8:19:00 EST, Route to Pharmacy Electronically, [id number],[facility] #[id number], 163, cm, 07/10/23 15:3... Start Date: 07/17/23 [...] pack/packet, 0 Refills, Soft Stop, 07/18/20 15:15:00 EST,[facility] #[id number], 165.5, cm, 05/19/20 10:10:00 EST, Height, 102.1, [...] Team Personnel Name: [place] Grissom MD Position: [facility] Physician - Primary Care Member Role: PCP Address: Address: [address] [place] [address]- Care Team Related Persons Name: ANTWON GARCIA Address: home [address] [place] [address]
--- OUTSIDE RECORDS SUMMARY | 2023-11-29 09:32 | XMS_ITS | Continuity of Care Document ---
Author Organization [facility] Address [address], [address] [place] [address]- Care Team Providers Care Tire Rebuilder Name Role Phone [place] Grissom MD Primary Care Physician [place] [facility] [place]20 - 03/04/21 [facility] [address] 4[address] [place], [place] [address] Attending Physician: Not on Staff, [...] 25 each, 5 Refills, Maintenance, 07/20/20 14:16:00 [facility], [facility] #[id number], 165.5, cm, 07/19/20 18:29:00 EST, Height, 102.1, kg, 09/08/19 15:11:00 EST, Dry Weight Start Date: 07/20/20 Status: Ordered Breo Ellipta 100 mcg-25 mcg/inh inhalation powder 1 puffs, Inhalation, Daily, # 1 each, 11 Refills, Maintenance, 10/03/20 15:46:00 EDT, Powder, [facility] #31061, 1 puffs Inhalation Daily, 165.5, cm, 09/20/20 13:58:00 EST, Height, 102.1, kg, 09/08/19 15:11:00 EST, Dry Weight Start Date: 10/03/20 Status: Ordered cyclobenzaprine 5 mg oral tablet 1 tablet = 5 mg, By Mouth, 3 times a day, PRN Other, PRN for leg pain, # 30 tablet, 5 Refills, Maintenance, 03/30/20 16:16:00 EDT, [facility] #44359, 165.5, cm, 09/08/19 15:08:00 EST, Height, 102.1, kg, 09/08/19 15:11:00 EST, Dry Weight Start Date: 03/30/20 Status: Ordered EpiPen 2-Gage 0.3 mg injectable kit See Instructions, Intramuscular Once, # 1 pack/packet, 0 Refills, Soft Stop, 07/18/20 15:15:00 EST,[facility] #65249, 165.5, cm, 05/19/20 10:10:00 EST, Height, 102.1, kg, 09/08/19 15:11:00EST, Dry Weight Start Date: 07/18/20 Status: Ordered Excedrin By Mouth, Every 6 hours, 0 Refills, Maintenance, 05/19/20 10:13:00 EST Start Date: 05/19/20 Status: Ordered ProAir HFA 90 mcg/inh inhalation aerosol with adapter 2, puffs, Inhalation, Every 4 hours, PRN, # 8.5 Gm, Refills 11, Tot. Refills 11, Maintenance, 03/30/20 16:16:00 EDT, Aerosol, Route to Pharmacy Electronically, [id number], [facility] #[id number], 165.5, cm, 09/08/19 15:0... Start Date: 03/30/20 [...]
--- OUTSIDE RECORDS SUMMARY | 2023-11-29 09:32 | XMS_ITS | Continuity of Care Document ---
Author Organization [facility] Adult Address [address] [place] [address]- Care Team Providers Care Traffic Analysis Technician Name Role Phone Jaciel WILSON, [place] Primary Care Physician [phone] [place] [facility] [place]23 - 03/22/23 [facility] [address] [place] [address]- Allergies, Adverse Reactions, Alerts Substance Reaction Severity Status Flovent chest pain Active Nuts anaphalaxis Active Immunizations Given and Recorded Vaccine Date Status Refusal Reason influenza virus vaccine, inactivated 07/02/22 Gustavo rded influenza virus vaccine, inactivated 1 09/25/21 Gi jennifer influenza virus vaccine, inactivated 04/14/09 Give n [id number] 12y+ bivalent booster vax 07/02/22 Recorded SARS-CoV-2 (COVID-19) mRNA BNT-162b2 vac 07/03/21 Recorded SARS-CoV-2 (COVID-19) mRNA-1273 vaccine 09/07/20 R ecorded SARS-CoV-2 (COVID-19) mRNA-1273 vaccine 08/10/20 R ecorded tetanus/diphtheria/pertussis, acel(Tdap) 02/18/17 Given influ virus vac, H1N1, inactive(oldterm) 2 05/06/09 Given Pneumococcal Poly (PPV23) (oldterm) 06/11/07 Given Tet/Diphth/Acel, Pertussis (oldterm) 3 12/25/06 Gi jennifer 1Result Comment: [facility]:85187-868-97 2Admin Note: Manufactured by: [employer] 3Admin Note: SANOFI PASTEUR Medications acetaminophen [...] 8.5 Gm, 5 Refills, 03/12/23 10:03:00 EDT, [facility] #[id number], 16, 2 puffs Inhalation Every 4 hours,PRN: [...] each, 3 Refills, Maintenance, 01/28/23 9:16:00 EDT, [facility] #37314, 90, INHALE 1 PUFF BY MOUTH DAILY, 162, cm, 01/13/23 7:02:00 EDT, Height, 115.9, kg, 01/11/23 12:29:00 EDT, Dry Weight Start Date: 01/28/23 Status: Ordered Breo Ellipta 100 mcg-25 mcg/inh inhalation powder 1 puffs, Inhalation, Daily, # 3 each, 3 Refills, Maintenance, 03/22/23 13:52:00 EDT, [facility] #50614, 1 puffs Inhalation Daily, 162, cm, 01/13/23 [...] pack/packet, 0 Refills, Soft Stop, 07/18/20 15:15:00 EST,[facility] #46806, 165.5, cm, 05/19/20 10:10:00 EST, Height, 102.1, [...] Primary Care Member Role: PCP Address: Address: [address] [place] [address]- Care Team Related Persons Name: ANTWON GARCIA Address: home [address] [place] [address]
--- OUTSIDE RECORDS SUMMARY | 2023-11-29 09:32 | XMS_ITS | Continuity of Care Document ---
Author Organization [facility] Adult Address [address] [place] [address]- Care Team Providers Care Ship Pilot Dispatcher Name Role Phone Jaciel WILSON, [place] Primary Care Physician [place] [facility] [place]22 - 06/16/22 [facility] [address] [place] [address]- Allergies, Adverse Reactions, Alerts Substance Reaction Severity [...] Comment: [facility]:88519-608-44 2Admin Note: Manufactured by: [employer] 3Admin Note: SANOFI PASTEUR Medications Albuterol (Eqv-ProAir HFA) 90 mcg/inh inhalation aerosol 2 puffs, Inhalation, Every 4 hours, PRN NEEDED FOR WHEEZING, # 8.5 Gm, 5 Refills, 04/25/22 9:56:00 EDT, [facility] #76312, 16, 2 puffs Inhalation Every 4 hours,PRN: NEEDED FOR WHEEZING, 162.56, cm, 04/19/22 9:56:00 EDT, Height, 112.1, k... Start Date: 04/25/22 Status: Ordered albuterol 0.083% inhalation solution 3 mL = 2.5 mg, Inhalation, Every 6 hours, PRN for wheezing, # 60 each, 1 Refills, Maintenance, 02/26/22 9:27:00 EDT, Solution, [facility] #[id number], Partial fill upon patient request if the prescription is for a schedule II opioid drug., 162.56... Start Date: 02/26/22 Status: Ordered Breo Ellipta 100 mcg-25 mcg/inh inhalation powder 1 puffs, Inhalation, Daily, # 3 each, 3 Refills, 02/16/22 12:14:00 EDT, [facility] #02499, no substitutuion - brand name necessary, 1 puffs Inhalation Daily, 162.56, cm, 02/02/22 15:09:00 EDT, Height, 112.1, kg, 02/02/22 15:11:00 EDT, Dry We... Start Date: 02/16/22 Status: Ordered EpiPen 2-Gage 0.3 mg injectable kit See Instructions, Intramuscular Once, # 1 pack/packet, 0 Refills, Soft Stop, 07/18/20 15:15:00 EST,[facility] #06659, 165.5, cm, 05/19/20 10:10:00 EST, Height, 102.1, kg, 09/08/19 15:11:00EST, Dry Weight Start Date: 07/18/20 Status: Ordered escitalopram 10 mg oral tablet 1.5 tablet = 15 mg, By Mouth, Daily at bedtime, dose increase, # 45 tablet, 11 Refills, Maintenance, 11/06/21 15:12:00 EDT, [facility] #[id number], Partial fill upon patient request if the [...] tablet, 1 Refills,Maintenance, 02/16/22 12:16:00 EDT, Tablet, [facility] #75618, 162.56, cm, 02/02/22 15:09:00 EDT, Height, 112.1, [...] Team Personnel Name: [place] Grissom MD Position: [facility] Primary Care Physician Member Role: PCP Address: Address: [address] [place] [address]- Care Team Related Persons Name: ANTWON GARCIA Address: home [address] [place] [address]
--- OUTSIDE RECORDS SUMMARY | 2023-11-29 09:32 | XMS_ITS | Continuity of Care Document ---
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 ASTHMA(Discharge Diagnosis) - 09/20/20 Attending Physician: [place] Grissom MD Allergies, Adverse [...] 25 each, 5 Refills, Maintenance, 07/20/20 14:16:[facility]601[facility], 165.5, cm, 07/19/20 18:29:00 EST, Height, 102.1, kg, 09/08/19 15:11:00 EST, Dry Weight Start Date: 07/20/20 Status: Ordered Breo Ellipta 100 mcg-25 mcg/inh inhalation powder 1 puffs, Inhalation, Daily, # 1 each, 11 Refills, Maintenance, 09/25/19 15:00:00 EDT, Powder, [facility] #75557, 1 puffs Inhalation Daily, 165.5, cm, 09/08/19 15:08:00 EST, Height, 102.1, kg, 09/08/19 15:11:00 EST, Dry Weight Start Date: 09/25/19 Status: Ordered cyclobenzaprine 5 mg oral tablet 1 tablet = 5 mg, By Mouth, 3 times a day, PRN Other, PRN for leg pain, # 30 tablet, 5 Refills, Maintenance, 03/30/20 16:16:00 EDT, [facility] #98957, 165.5, cm, 09/08/19 15:08:00 EST, Height, 102.1, kg, 09/08/19 15:11:00 EST, Dry Weight Start Date: 03/30/20 Status: Ordered EpiPen 2-Gage 0.3 mg injectable kit See Instructions, Intramuscular Once, # 1 pack/packet, 0 Refills, Soft Stop, 07/18/20 15:15:00 EST,[facility] #72889, 165.5, cm, 05/19/20 10:10:00 EST, Height, 102.1, [...] 16:16:00 EDT, Aerosol, Route to Pharmacy Electronically, [id number], [facility] #[id number], 165.5, cm, 09/08/19 15:0... Start Date: 03/30/20 Status: Ordered traZODone 50 mg oral tablet 50 mg, 1, tablet, By Mouth, Daily at bedtime, # 30 tablet, Refills 11, Tot. Refills 11, Maintenance, 08/10/19 15:17:00 EST, Route to Pharmacy Electronically, [facility] #[id number], 165.5, cm, 08/10/19 14:42:00 EST, Height Start [...] Dates Health Status Cl inical Service Informant TMJ syndrome Discharge Diagnosis 09/20/20 ASTHMA Discharge Diagnosis 09/20/20 Vital Signs Most recent to oldest [Reference Range]: 1 Height 165.5 cm (09/20/20 1:58 PM) Weight 106.1 kg (09/20/20 1:58 PM) Oxygen Saturation [94-100 %] 98 % (09/20/20 1:58 PM) Pulse Rate [55-90 bpm] 85 bpm (09/20/20 1:58 PM) Body Mass Index [18.5-24.99] 38.74 *>HHI* (09/20/20 1:58 PM) Blood Pressure [90-138/55-84 mm Hg] 110/ 70mm Hg (09/20/20 1:58 PM) Blood pressure sites Arm, left (09/20/20 1:58 PM) Social History Social History Type Response Smoking Status Former smoker; Type: Cigarettes; Other: on and off 10 years; entered on: 03/12/18 Sex
--- OUTSIDE RECORDS SUMMARY | 2023-11-29 09:32 | XMS_ITS | Continuity of Care Document ---
Author Organization [facility] Address Unknown Care Team Providers Care Nurse Companion Name Role Phone [place] Grissom MD Primary Care Physician Encounter [facility] [place] Date(s): 08/17/21 - 08/24/21 [facility] Attending Physician: Knee RD, Anneliese [...] 12/25/06 Gi jennifer 1Admin Note: Manufactured by: [employer] 2Admin Note: SANOFI PASTEUR Medications Albuterol (Eqv-ProAir HFA) 90 mcg/inh inhalation aerosol 2 puffs, Inhalation, Every 4 hours, PRN NEEDED FOR WHEEZING, # 8.5 Gm, 2 Refills, [facility] #[id number], 16, INHALE 2 PUFFS BY MOUTH EVERY 4 HOURS NEEDED FOR WHEEZING, 163, cm, 06/21/21 8:48:00 EST, Height, 109, kg, 02/01/21 19:07:00 EDT,... Start Date: 07/03/21 Status: Ordered Breo Ellipta 100 mcg-25 mcg/inh inhalation powder 1 puffs, Inhalation, Daily, # 1 each, 11 Refills, Maintenance, 10/03/20 15:46:00 EDT, Powder, [facility] #07031, 1 puffs Inhalation Daily, 165.5, cm, 09/20/20 13:58:00 EST, Height, 102.1, kg, 09/08/19 15:11:00 EST, Dry Weight Start Date: 10/03/20 Status: Ordered EpiPen 2-Gage 0.3 mg injectable kit See Instructions, Intramuscular Once, # 1 pack/packet, 0 Refills, Soft Stop, 07/18/20 15:15:00 EST,[facility] #53748, 165.5, cm, 05/19/20 10:10:00 EST, Height, 102.1, [...]
--- OUTSIDE RECORDS SUMMARY | 2023-11-29 09:32 | XMS_ITS | Continuity of Care Document ---
Author Organization [facility] Adult Address [address] [place] [address]- Care Team Providers Care Food Photographer Name Role Phone [place] Grissom MD Primary Care Physician [place] [facility] [place] 08/20/22 - 09/19/22 [facility] [address] [place] [address]- Attending Physician: Scott Murcia Admitting Physician: Scott [...] (oldterm) 3 12/25/06 Gi jennifer 1Result Comment: [facility]:89797-848-03 2Admin Note: Manufactured by: [employer] 3Admin Note: SANOFI PASTEUR Medications Albuterol (Eqv-ProAir HFA) 90 mcg/inh inhalation aerosol 2 puffs, Inhalation, Every 4 hours, PRN NEEDED FOR WHEEZING, # 8.5 Gm, 5 Refills, 04/25/22 9:56:00 EDT, [facility] #04499, 16, 2 puffs Inhalation Every 4 hours,PRN: NEEDED FOR WHEEZING, 162.56, cm, 04/19/22 9:56:00 EDT, Height, 112.1, k... Start Date: 04/25/22 Status: Ordered albuterol 0.083% inhalation solution 3 mL = 2.5 mg, Inhalation, Every 6 hours, PRN for wheezing, # 60 each, 1 Refills, Maintenance, 02/26/22 9:27:00 EDT, Solution, [facility] #47998, Partial fill upon patient request if the prescription is for a schedule II opioid drug., 162.56... Start Date: 02/26/22 Status: Ordered Breo Ellipta 100 mcg-25 mcg/inh inhalation powder 1 puffs, Inhalation, Daily, # 3 each, 3 Refills, 02/16/22 12:14:00 EDT, [facility] #55290, no substitutuion - brand name necessary, 1 puffs Inhalation Daily, 162.56, cm, 02/02/22 15:09:00 EDT, Height, 112.1, kg, 02/02/22 15:11:00 EDT, Dry We... Start Date: 02/16/22 Status: Ordered EpiPen 2-Gage 0.3 mg injectable kit See Instructions, Intramuscular Once, # 1 pack/packet, 0 Refills, Soft Stop, 07/18/20 15:15:00 EST,[facility] #53469, 165.5, cm, 05/19/20 10:10:00 EST, Height, 102.1, kg, 09/08/19 15:11:00EST, Dry Weight Start Date: 07/18/20 Status: Ordered escitalopram 10 mg oral tablet 1.5 tablet = 15 mg, By Mouth, Daily at bedtime, dose increase, # 45 tablet, 11 Refills, Maintenance, 11/06/21 15:12:00 EDT, [facility] #29300, Partial fill upon patient request if the [...] tablet, 1 Refills,Maintenance, 02/16/22 12:16:00 EDT, Tablet, [facility] #41921, 162.56, cm, 02/02/22 15:09:00 EDT, Height, 112.1, [...] Care Physician Member Role: PCP Address: Address: [address] [place] [address] Care Team Related Persons Name: ANTWON GARCIA Address: home [address] [place] [address]
--- OUTSIDE RECORDS SUMMARY | 2023-11-29 09:32 | XMS_ITS | Continuity of Care Document ---
Author Organization [facility] Adult Address [address] [place] [address]- Care Team Providers Care Recycle Coordinator Name Role Phone Jaciel WILSON, [place] Primary Care Physician [place] [facility] [place] 04/24/22 - 05/24/22 [facility] [address] [place] [address]- Allergies, Adverse Reactions, Alerts Substance Reaction Severity [...] (oldterm) 3 12/25/06 Gi jennifer 1Result Comment: [facility]:42173-122-07 2Admin Note: Manufactured by: [employer] 3Admin Note: SANOFI PASTEUR Medications Albuterol (Eqv-ProAir HFA) 90 mcg/inh inhalation aerosol 2 puffs, Inhalation, Every 4 hours, PRN NEEDED FOR WHEEZING, # 8.5 Gm, 5 Refills, 04/25/22 9:56:00 EDT, [facility] #98623, 16, 2 puffs Inhalation Every 4 hours,PRN: NEEDED FOR WHEEZING, 162.56, cm, 04/19/22 9:56:00 EDT, Height, 112.1, k... Start Date: 04/25/22 Status: Ordered albuterol 0.083% inhalation solution 3 mL = 2.5 mg, Inhalation, Every 6 hours, PRN for wheezing, # 60 each, 1 Refills, Maintenance, 02/26/22 9:27:00 EDT, Solution, [facility] #[id number], Partial fill upon patient request if the prescription is for a schedule II opioid drug., 162.56... Start Date: 02/26/22 Status: Ordered Breo Ellipta 100 mcg-25 mcg/inh inhalation powder 1 puffs, Inhalation, Daily, # 3 each, 3 Refills, 02/16/22 12:14:00 EDT, [facility] #18658, no substitutuion - brand name necessary, 1 puffs Inhalation Daily, 162.56, cm, 02/02/22 15:09:00 EDT, Height, 112.1, kg, 02/02/22 15:11:00 EDT, Dry We... Start Date: 02/16/22 Status: Ordered EpiPen 2-Gage 0.3 mg injectable kit See Instructions, Intramuscular Once, # 1 pack/packet, 0 Refills, Soft Stop, 07/18/20 15:15:00 EST,[facility] #[id number], 165.5, cm, 05/19/20 10:10:00 EST, Height, 102.1, kg, 09/08/19 15:11:00EST, Dry Weight Start Date: 07/18/20 Status: Ordered escitalopram 10 mg oral tablet 1.5 tablet = 15 mg, By Mouth, Daily at bedtime, dose increase, # 45 tablet, 11 Refills, Maintenance, 11/06/21 15:12:00 EDT, [facility] #[id number], Partial fill upon patient request if the [...] tablet, 1 Refills,Maintenance, 02/16/22 12:16:00 EDT, Tablet, [facility] #14715, 162.56, cm, 02/02/22 15:09:00 EDT, Height, 112.1, [...] Grissom MD Position: [facility] Primary Care Physician Member Role: PCP Address: Address: [address] [place] [address]- Care Team Related Persons Name: ANTWON GARCIA Address: home [address] [place] [address]
--- OUTSIDE RECORDS SUMMARY | 2023-11-29 09:32 | XMS_ITS | Continuity of Care Document ---
Author Organization [facility] Address [address] [place] [address]- Care Team Providers Care Mixing Machine Tender Name Role Phone [place] Grissom MD Primary Care Physician En[place] [facility] [place](s): 12/04/21 - 01/03/22 [facility] [address] [place], [place] [address] Allergies, Adverse Reactions, Alerts Substance Reaction Severity [...] Comment: [facility]:69832-146-73 2Admin Note: Manufactured by: [employer] 3Admin Note: SANOFI PASTEUR Medications Albuterol (Eqv-ProAir HFA) 90 mcg/inh inhalation aerosol 2 puffs, Inhalation, Every 4 hours, PRN NEEDED FOR WHEEZING, # 8.5 Gm, 2 Refills, [facility] #05911, 16, INHALE 2 PUFFS BY MOUTH EVERY 4 HOURS NEEDED FOR WHEEZING, 163, cm, 06/21/21 8:48:00 EST, Height, 109, kg, 02/01/21 19:07:00 EDT,... Start Date: 07/03/21 Status: Ordered Breo Ellipta 100 mcg-25 mcg/inh inhalation powder 1 puffs, Inhalation, Daily, # 3 each, 2 Refills, 10/20/21 9:30:00 EDT, [facility] #90563,1 puffs Inhalation Daily, 162.56, cm, 10/09/21 13:19:00 EDT, Height, 109.5, kg, 10/03/21 13:50:00 EDT, Dry Weight Start Date: 10/20/21 Status: Ordered EpiPen 2-Gage 0.3 mg injectable kit See Instructions, Intramuscular Once, # 1 pack/packet, 0 Refills, Soft Stop, 07/18/20 15:15:00 EST,[facility] #[id number], 165.5, cm, 05/19/20 10:10:00 EST, Height, 102.1, kg, 09/08/19 15:11:00EST, Dry Weight Start Date: 07/18/20 Status: Ordered escitalopram 10 mg oral tablet 1.5 tablet = 15 mg, By Mouth, Daily at bedtime, dose increase, # 45 tablet, 11 Refills, Maintenance, 11/06/21 15:12:00 EDT, [facility] #[id number], Partial fill upon patient request if the [...]
--- OUTSIDE RECORDS SUMMARY | 2023-11-29 09:32 | XMS_ITS | Continuity of Care Document ---
Author Organization [facility] Adult Address Unknown Care Team Providers Care Regulator Assembler Name Role Phone [place] Grissom MD Primary Care Physician [phone] Encounter [facility] [place] Date(s): 10/20/21 - 11/19/21 [facility] Allergies, Adverse Reactions, Alerts Substance Reaction [...] Gi jennifer 1Result Comment: [facility]:69041-121-91 2Admin Note: Manufactured by: [employer] 3Admin Note: SANOFI PASTEUR Medications Albuterol (Eqv-ProAir HFA) 90 mcg/inh inhalation aerosol 2 puffs, Inhalation, Every 4 hours, PRN NEEDED FOR WHEEZING, # 8.5 Gm, 2 Refills, [facility] #38358, 16, INHALE 2 PUFFS BY MOUTH EVERY 4 HOURS NEEDED FOR WHEEZING, 163, cm, 06/21/21 8:48:00 EST, Height, 109, kg, 02/01/21 19:07:00 EDT,... Start Date: 07/03/21 Status: Ordered Breo Ellipta 100 mcg-25 mcg/inh inhalation powder 1 puffs, Inhalation, Daily, # 3 each, 2 Refills, 10/20/21 9:30:00 EDT, [facility] #37812,1 puffs Inhalation Daily, 162.56, cm, 10/09/21 13:19:00 EDT, Height, 109.5, kg, 10/03/21 13:50:00 EDT, Dry Weight Start Date: 10/20/21 Status: Ordered EpiPen 2-Gage 0.3 mg injectable kit See Instructions, Intramuscular Once, # 1 pack/packet, 0 Refills, Soft Stop, 07/18/20 15:15:00 EST,[facility] #49894, 165.5, cm, 05/19/20 10:10:00 EST, Height, 102.1, kg, 09/08/19 15:11:00EST, Dry Weight Start Date: 07/18/20 Status: Ordered escitalopram 10 mg oral tablet 1.5 tablet = 15 mg, By Mouth, Daily at bedtime, dose increase, # 45 tablet, 11 Refills, Maintenance, 11/06/21 15:12:00 EDT, [facility] #45756, Partial fill upon patient request if the [...]
--- OUTSIDE RECORDS SUMMARY | 2023-11-29 09:32 | XMS_ITS | Continuity of Care Document ---
Author Organization [facility] Address Unknown Care Team Providers Care Demographic Analyst Name Role Phone [place] Grissom MD Primary Care Physician En[place] [facility] [place] Date(s[place] 06/27/21 - 07/04/21 [facility] Encounter Diagnosis Gastric distention(Discharge Diagnosis) - 06/27/21 S/P gastric sleeve procedure(Discharge Diagnosis) - 06/27/21 Attending Physician: Elias Person Referring Physician: [place] [...] 12/25/06 Gi jennifer 1Admin Note: Manufactured by: [employer] inc[employer] 2Admin Note: SANOFI PASTEUR Medications Albuterol (Eqv-ProAir HFA) 90 mcg/inh inhalation aerosol 2 puffs, Inhalation, Every 4 hours, PRN NEEDED FOR WHEEZING, # 8.5 Gm, 2 Refills, [facility] #[id number], 16, INHALE 2 PUFFS BY MOUTH EVERY 4 HOURS NEEDED FOR WHEEZING, 163, cm, 12/08/21 8:48:00 EST, Height, 109, kg, 02/01/21 19:07:00 EDT,... Start Date: 07/03/21 Status: Ordered Breo Ellipta 100 mcg-25 mcg/inh inhalation powder 1 puffs, Inhalation, Daily, # 1 each, 11 Refills, Maintenance, 10/03/20 15:46:00 EDT, Powder, [facility] #[id number], 1 puffs Inhalation Daily, 165.5, cm, 09/20/20 13:58:00 EST, Height, 102.1, kg, 09/08/19 15:11:00 EST, Dry Weight Start Date: 10/03/20 Status: Ordered EpiPen 2-Gage 0.3 mg injectable kit See Instructions, Intramuscular Once, # 1 pack/packet, 0 Refills, Soft Stop, 07/18/20 15:15:00 EST,[facility] #[id number], 165.5, cm, 05/19/20 10:10:00 EST, Height, 102.1, [...] Effective Dates Health Status Clinical Service Informant Gastric distention Discharge Diagnosis 06/27/21 S/P gastric sleeve procedure Discharge Diagnosis 06/27/21 Social History Social History Type Response Smoking Status Former smoker, quit more than 30 days ago entered on: 02/01/21 Sex
--- OUTSIDE RECORDS SUMMARY | 2023-11-29 09:32 | XMS_ITS | Continuity of Care Document ---
Author Organization [facility] Address [address] [place] [address]- Care Team Providers Care Public Relations Officer Name Role Phone Jaciel WILSON, [place] Primary Care Physician Encounter [facility] [place] Date(s): 03/12/23 - 04/11/23 [facility] [address] [place] [address]- Allergies, Adverse Reactions, Alerts Substance Reaction Severity Status Flovent chest pain Active Nuts anaphalaxis Active Immunizations Given and Recorded Vaccine Date Status Refusal Reason influenza virus vaccine, inactivated 07/02/22 Gustavo rded influenza virus vaccine, inactivated 1 09/25/21 Gi jennifer influenza virus vaccine, inactivated 04/14/09 Give n [id number] 12y+ bivalent booster vax 07/02/22 Recorded SARS-CoV-2 (COVID-19) mRNA BNT-162b2 vac 07/03/21 Recorded SARS-CoV-2 (COVID-19) mRNA-1273 vaccine 09/07/20 R ecorded SARS-CoV-2 (COVID-19) mRNA-1273 vaccine 08/10/20 R ecorded tetanus/diphtheria/pertussis, acel(Tdap) 02/18/17 Given influ virus vac, H1N1, inactive(oldterm) 2 05/06/09 Given Pneumococcal Poly (PPV23) (oldterm) 06/11/07 Given Tet/Diphth/Acel, Pertussis (oldterm) 3 12/25/06 Gi jennifer 1Result Comment: [facility]:[id number] 2Admin Note: Manufactured by: [employer] 3Admin Note: SANOFI PASTEUR Medications acetaminophen [...] 8.5 Gm, 5 Refills, 03/12/23 10:03:00 EDT, [facility] #[id number], 16, 2 puffs Inhalation Every 4 hours,PRN: [...] each, 3 Refills, Maintenance, 01/28/23 9:16:00 EDT, [facility] #59444, 90, INHALE 1 PUFF BY MOUTH DAILY, 162, cm, 01/13/23 7:02:00 EDT, Height, 115.9, kg, 01/11/23 12:29:00 EDT, Dry Weight Start Date: 01/28/23 Status: Ordered Breo Ellipta 100 mcg-25 mcg/inh inhalation powder 1 puffs, Inhalation, Daily, # 3 each, 3 Refills, Maintenance, 03/22/23 13:52:00 EDT, [facility] #42616, 1 puffs Inhalation Daily, 162, cm, 01/13/23 [...] pack/packet, 0 Refills, Soft Stop, 07/18/20 15:15:00 EST,[facility] #34391, 165.5, cm, 05/19/20 10:10:00 EST, Height, 102.1, [...] Primary Care Member Role: PCP Address: Address: [address] [place] [address]- Care Team Related Persons Name: ANTWON GARCIA Address: home [address] [place] [address]
--- OUTSIDE RECORDS SUMMARY | 2023-11-29 09:32 | XMS_ITS | Continuity of Care Document ---
Author Organization [facility] Address [address] [place] [address]- Care Team Providers Care Financial Engineer Name Role Phone Jaciel WILSON, [place] Primary Care Physician Encounter [facility] [place] Date(s): 03/30/20 - 04/29/20 [facility] [address] [place] [address]- [facility] Allergies, Adverse Reactions, Alerts Substance Reaction Severity Status Flovent Active Nuts anaphalaxis Active Immunizations Given and Recorded Vaccine Date Status Refusal Reason tetanus/diphtheria/pertussis, acel(Tdap) 02/18/17 Given influ virus vac, H1N1, inactive(oldterm) 1 05/06/09 Given influenza virus vaccine, inactivated 04/14/09 Give n Pneumococcal Poly (PPV23) (oldterm) 06/11/07 Given Tet/Diphth/Acel, Pertussis (oldterm) 2 12/25/06 Gi jennifer 1Admin Note: Manufactured by: [employer] inc. 2Admin Note: SANOFI PASTEUR Medications albuterol 0.083% inhalation solution 3 mL, Inhalation, Every 6 hours, PRN as needed for wheezing, # 25 each, 5 Refills, Maintenance Start Date: 08/04/10 Status: Ordered Breo Ellipta 100 mcg-25 mcg/inh inhalation powder 1 puffs, Inhalation, Daily, # 1 each, 11 Refills, Maintenance, 09/25/19 15:00:00 EDT, Powder, [facility] #[id number], 1 puffs Inhalation Daily, 165.5, cm, 09/08/19 15:08:00 EST, Height, 102.1, kg, 09/08/19 15:11:00 EST, Dry Weight Start Date: 09/25/19 Status: Ordered cyclobenzaprine 5 mg oral tablet 1 tablet = 5 mg, By Mouth, 3 times a day, PRN Other, PRN for leg pain, # 30 tablet, 5 Refills, Maintenance, 03/30/20 16:16:00 EDT, [facility] #35212, 165.5, cm, 09/08/19 15:08:00 EST, Height, 102.1, [...] 16:16:00 EDT, Aerosol, Route to Pharmacy Electronically, [id number], [facility] #47492, 165.5, cm, 09/08/19 15:0... Start Date: 03/30/20 [...] 08/10/19 15:17:00 EST, Route to Pharmacy Electronically, [facility] #58386, 165.5, cm, 08/10/19 14:42:00 EST, Height Start [...]
--- OUTSIDE RECORDS SUMMARY | 2023-11-29 09:32 | XMS_ITS | Continuity of Care Document ---
Author Organization [facility] Address [address], [address] [place] [address]- Care Team Providers Care Explosive Technician Name Role Phone [place] Grissom MD Primary Care Physician [phone] [id number] - 02/09/[facility] [address], [address] [place], [place] [address] Attending Physician: Not on Staff, Attending MD [...] 3 12/25/06 Gi jennifer 1Result Comment: [facility]:[id number] 2Admin Note: Manufactured by: [employer]. 3Admin Note: SANOFI PASTEUR Medications Albuterol (Eqv-ProAir HFA) 90 mcg/inh inhalation aerosol 2 puffs, Inhalation, Every 4 hours, PRN NEEDED FOR WHEEZING, # 8.5 Gm, 2 Refills, [facility] #[id number], 16, INHALE 2 PUFFS BY MOUTH EVERY 4 HOURS NEEDED FOR WHEEZING, 163, cm, 06/21/21 8:48:00 EST, Height, 109, kg, 02/01/21 19:07:00 EDT,... Start Date: 07/03/21 Status: Ordered Breo Ellipta 100 mcg-25 mcg/inh inhalation powder 1 puffs, Inhalation, Daily, # 3 each, 2 Refills, 10/20/21 9:30:00 EDT, [facility] #35098,1 puffs Inhalation Daily, 162.56, cm, 10/09/21 13:19:00 EDT, Height, 109.5, kg, 10/03/21 13:50:00 EDT, Dry Weight Start Date: 10/20/21 Status: Ordered EpiPen 2-Gage 0.3 mg injectable kit See Instructions, Intramuscular Once, # 1 pack/packet, 0 Refills, Soft Stop, 07/18/20 15:15:00 EST,[facility] #[id number], 165.5, cm, 05/19/20 10:10:00 EST, Height, 102.1, kg, 09/08/19 15:11:00EST, Dry Weight Start Date: 07/18/20 Status: Ordered escitalopram 10 mg oral tablet 1.5 tablet = 15 mg, By Mouth, Daily at bedtime, dose increase, # 45 tablet, 11 Refills, Maintenance, 11/06/21 15:12:00 EDT, [facility] #[id number], Partial fill upon patient request if the [...] oldest [Reference Range]: 1 Height 162.56 cm (02/02/22 3:09 PM) Weight 112.1 kg (02/02/22 3:09 PM) Oxygen Saturation [94-100 %] 97 % (02/02/22 3:09 PM) Pulse Rate [55-90 bpm] 104 bpm *H* (02/02/22 3:09 PM) Body Mass Index [18.5-24.99] 42.42 *>HHI* (02/02/22 3:09 PM) Blood Pressure [90-138/55-84 mm Hg] 116/ 75mm Hg (02/02/22 3:09 PM) Mode of Delivery (Oxygen) Room air (02/02/22 3:09 PM) Blood pressure sites Arm, left (02/02/22 3:09 PM) Temperature Route Oral (02/02/22 3:09 PM) Dry Weight 112.1 kg (02/02/22 3:09 PM) Weight Obtained Via Standing scale (02/02/22 3:09 PM) Dry Weight Obtained Via Standing scale (02/02/22 3:09 PM) Social History Social History Type Response Smoking Status Former smoker, quit more than 30 days ago entered on: 02/01/21 Sex
--- OUTSIDE RECORDS SUMMARY | 2023-11-29 09:32 | XMS_ITS | Continuity of Care Document ---
Author Organization [facility] Address [address], [address] [place] [address]- Care Team Providers Care Senior Information Security Engineer Name Role Phone [place] Grissom MD Primary Care Physician [id number] Date(s): 05/03/21 - 05/10/21 [facility] [address], [address] [place], [place] [address] Attending Physician: Earl WILSON [OB], Monika Ayala Referring Physician: Wandy Dueñas CNM Allergies, Adverse Reactions, Alerts Substance Reaction Severity [...] 25 each, 5 Refills, Maintenance, 07/20/20 14:16:00 [facility], [facility] #[id number], 165.5, cm, 07/19/20 18:29:00 EST, Height, 102.1, kg, 09/08/19 15:11:00 EST, Dry Weight Start Date: 07/20/20 Status: Ordered Breo Ellipta 100 mcg-25 mcg/inh inhalation powder 1 puffs, Inhalation, Daily, # 1 each, 11 Refills, Maintenance, 10/03/20 15:46:00 EDT, Powder, [facility] #96355, 1 puffs Inhalation Daily, 165.5, cm, 09/20/20 13:58:00 EST, Height, 102.1, kg, 09/08/19 15:11:00 EST, Dry Weight Start Date: 10/03/20 Status: Ordered cyclobenzaprine 5 mg oral tablet 1 tablet, By Mouth, 3 times a day, PRN NEEDED FOR LEG PAIN, # 30 tablet, 0 Refills, [facility] #[id number], 165.5, cm, 02/01/21 19:07:00 EDT, Height, 109, kg, 02/01/21 19:07:00 EDT, Dry Weight Start Date: 04/24/21 Status: Ordered EpiPen 2-Gage 0.3 mg injectable kit See Instructions, Intramuscular Once, # 1 pack/packet, 0 Refills, Soft Stop, 07/18/20 15:15:00 EST,[facility] #85483, 165.5, cm, 05/19/20 10:10:00 EST, Height, 102.1, [...] 16:16:00 EDT, Aerosol, Route to Pharmacy Electronically, [id number], [facility] #62557, 165.5, cm, 09/08/19 15:0... 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
--- OUTSIDE RECORDS SUMMARY | 2023-11-29 09:32 | XMS_ITS | Continuity of Care Document ---
Author Organization [facility] Address [address], [address] [place] [address]- Care Team Providers Care Sheep Sorter Name Role Phone Jaciel WILSON, [place] Primary Care Physician [place] [facility] [place] 12/14/20 - 01/13/21 [facility] [address], [address] [place], [place] [address] Allergies, [...] each, 5 Refills, Maintenance, 07/20/20 14:16:00 EST, [facility] #57692, 165.5, cm, 07/19/20 18:29:00 EST, Height, 102.1, kg, 09/08/19 15:11:00 EST, Dry Weight Start Date: 07/20/20 Status: Ordered Breo Ellipta 100 mcg-25 mcg/inh inhalation powder 1 puffs, Inhalation, Daily, # 1 each, 11 Refills, Maintenance, 10/03/20 15:46:00 EDT, Powder, [facility] #91223, 1 puffs Inhalation Daily, 165.5, cm, 09/20/20 13:58:00 EST, Height, 102.1, kg, 09/08/19 15:11:00 EST, Dry Weight Start Date: 10/03/20 Status: Ordered cyclobenzaprine 5 mg oral tablet 1 tablet = 5 mg, By Mouth, 3 times a day, PRN Other, PRN for leg pain, # 30 tablet, 5 Refills, Maintenance, 03/30/20 16:16:00 EDT, [facility] #30199, 165.5, cm, 09/08/19 15:08:00 EST, Height, 102.1, kg, 09/08/19 15:11:00 EST, Dry Weight Start Date: 03/30/20 Status: Ordered EpiPen 2-Gage 0.3 mg injectable kit See Instructions, Intramuscular Once, # 1 pack/packet, 0 Refills, Soft Stop, 07/18/20 15:15:00 EST,[facility] #[id number], 165.5, cm, 05/19/20 10:10:00 EST, Height, 102.1, [...] 16:16:00 EDT, Aerosol, Route to Pharmacy Electronically, [id number], [id number], 165.5, cm, 09/08/19 15:0... Start Date: 03/30/20 Status: Ordered traZODone 50 mg oral tablet 50 mg, 1, tablet, By Mouth, Daily at bedtime, # 30 tablet, Refills 11, Tot. Refills 11, Maintenance, 08/10/19 15:17:00 EST, [id number], 165.5, cm, 08/10/19 14:42:00 EST, Height Start [...]
--- OUTSIDE RECORDS SUMMARY | 2023-11-29 09:32 | XMS_ITS | Continuity of Care Document ---
Author Organization [facility] Address [address] [place] [address]- Care Team Providers Care Joint Cutter Machine Name Role Phone Jaciel WILSON, [place] Primary Care Physician [place] [facility] [place] 04/27/20 [facility] [address] [place] [address]- [facility] Allergies, Adverse Reactions, Alerts Substance Reaction Severity Status Flovent Active Nuts anaphalaxis Active Immunizations Given and Recorded Vaccine Date Status Refusal Reason tetanus/diphtheria/pertussis, acel(Tdap) 02/18/17 Given influ virus vac, H1N1, inactive(oldterm) 1 05/06/09 Given influenza virus vaccine, inactivated 04/14/09 Give n Pneumococcal Poly (PPV23) (oldterm) 06/11/07 Given Tet/Diphth/Acel, Pertussis (oldterm) 2 12/25/06 Gi jennifer 1Admin Note: Manufactured by: [employer] 2Admin Note: SANOFI PASTEUR Medications albuterol 0.083% inhalation solution 3 mL, Inhalation, Every 6 hours, PRN as needed for wheezing, # 25 each, 5 Refills, Maintenance Start Date: 08/04/10 Status: Ordered Breo Ellipta 100 mcg-25 mcg/inh inhalation powder 1 puffs, Inhalation, Daily, # 1 each, 11 Refills, Maintenance, 09/25/19 15:00:00 EDT, Powder, [facility] #74803, 1 puffs Inhalation Daily, 165.5, cm, 09/08/19 15:08:00 EST, Height, 102.1, kg, 09/08/19 15:11:00 EST, Dry Weight Start Date: 09/25/19 Status: Ordered cyclobenzaprine 5 mg oral tablet 1 tablet = 5 mg, By Mouth, 3 times a day, PRN Other, PRN for leg pain, # 30 tablet, 5 Refills, Maintenance, 03/30/20 16:16:00 EDT, [facility] #84455, 165.5, cm, 09/08/19 15:08:00 EST, Height, 102.1, [...] 16:16:00 EDT, Aerosol, Route to Pharmacy Electronically, [id number], [facility] #68373, 165.5, cm, 09/08/19 15:0... Start Date: 03/30/20 [...] 08/10/19 15:17:00 EST, Route to Pharmacy Electronically, [facility] #[id number], 165.5, cm, 08/10/19 14:42:00 EST, Height Start [...]
--- OUTSIDE RECORDS SUMMARY | 2023-11-29 09:32 | XMS_ITS | Continuity of Care Document ---
Author Organization [facility] Address Unknown Care Team Providers Care Uke Operator Name Role Phone [place] Grissom MD Primary Care Physician [phone] [place] [facility] [place] 10/11/21 - 12/08/21 [facility] Attending Physician: Knee RD, Anneliese [...] (oldterm) 3 12/25/06 Gi jennifer 1Result Comment: [facility]:[id number] 2Admin Note: Manufactured by: [employer] 3Admin Note: SANOFI PASTEUR Medications Albuterol (Eqv-ProAir HFA) 90 mcg/inh inhalation aerosol 2 puffs, Inhalation, Every 4 hours, PRN NEEDED FOR WHEEZING, # 8.5 Gm, 2 Refills, [facility] #[id number], 16, INHALE 2 PUFFS BY MOUTH EVERY 4 HOURS NEEDED FOR WHEEZING, 163, cm, 06/21/21 8:48:00 EST, Height, 109, kg, 02/01/21 19:07:00 EDT,... Start Date: 07/03/21 Status: Ordered Breo Ellipta 100 mcg-25 mcg/inh inhalation powder 1 puffs, Inhalation, Daily, # 3 each, 2 Refills, 10/20/21 9:30:00 EDT, [facility] #25984,1 puffs Inhalation Daily, 162.56, cm, 10/09/21 13:19:00 EDT, Height, 109.5, kg, 10/03/21 13:50:00 EDT, Dry Weight Start Date: 10/20/21 Status: Ordered EpiPen 2-Gage 0.3 mg injectable kit See Instructions, Intramuscular Once, # 1 pack/packet, 0 Refills, Soft Stop, 07/18/20 15:15:00 EST,[facility] #75001, 165.5, cm, 05/19/20 10:10:00 EST, Height, 102.1, kg, 09/08/19 15:11:00EST, Dry Weight Start Date: 07/18/20 Status: Ordered escitalopram 10 mg oral tablet 1.5 tablet = 15 mg, By Mouth, Daily at bedtime, dose increase, # 45 tablet, 11 Refills, Maintenance, 11/06/21 15:12:00 EDT, [facility] #[id number], Partial fill upon patient request if the [...]
--- OUTSIDE RECORDS SUMMARY | 2023-11-29 09:33 | XMS_ITS | Continuity of Care Document ---
Author Organization [facility]Children [facility] Address [address], [address] [place] [address]- Care Team Providers Care Residential Property Manager Name Role Phone [place] Grissom MD Primary Care Physician [phone] [id number] [address], [address] [place], [place] [address] Attending Physician: Not on Staff, Attending [...] each, 5 Refills, Maintenance, 07/20/20 14:16:00 EST, [facility] #07947, 165.5, cm, 07/19/20 18:29:00 EST, Height, 102.1, kg, 09/08/19 15:11:00 EST, Dry Weight Start Date: 07/20/20 Status: Ordered Breo Ellipta 100 mcg-25 mcg/inh inhalation powder 1 puffs, Inhalation, Daily, # 1 each, 11 Refills, Maintenance, 10/03/20 15:46:00 EDT, Powder, [facility] #36266, 1 puffs Inhalation Daily, 165.5, cm, 09/20/20 13:58:00 EST, Height, 102.1, kg, 09/08/19 15:11:00 EST, Dry Weight Start Date: 10/03/20 Status: Ordered cyclobenzaprine 5 mg oral tablet 1 tablet = 5 mg, By Mouth, 3 times a day, PRN Other, PRN for leg pain, # 30 tablet, 5 Refills, Maintenance, 03/30/20 16:16:00 EDT, [facility] #46820, 165.5, cm, 09/08/19 15:08:00 EST, Height, 102.1, kg, 09/08/19 15:11:00 EST, Dry Weight Start Date: 03/30/20 Status: Ordered EpiPen 2-Gage 0.3 mg injectable kit See Instructions, Intramuscular Once, # 1 pack/packet, 0 Refills, Soft Stop, 07/18/20 15:15:00 EST,[facility] #28758, 165.5, cm, 05/19/20 10:10:00 EST, Height, 102.1, [...] 16:16:00 EDT, Aerosol, Route to Pharmacy Electronically, [id number], [facility] #56547, 165.5, cm, 09/08/19 15:0... Start Date: 03/30/20 [...] oldest [Reference Range]: 1 Height 165.5 cm (02/01/21 7:07 PM) Weight 109 kg (02/01/21 7:07 PM) Pulse Rate [55-90 bpm] 89 bpm (02/01/21 7:07 PM) Body Mass Index [18.5-24.99] 39.8 *>HHI* (02/01/21 7:07 PM) Blood Pressure [90-138/55-84 mm Hg] 113/ 65mm Hg (02/01/21 7:07 PM) Blood pressure sites Arm, right (02/01/21 7:07 PM) Dry Weight 109 kg (02/01/21 7:07 PM) Weight Obtained Via Standing scale (02/01/21 7:07 PM) Dry Weight Obtained Via Standing scale (02/01/21 7:07 PM) Social History Social History Type Response Smoking Status Former smoker, quit more than 30 days ago entered on: 02/01/21 Sex
--- OUTSIDE RECORDS SUMMARY | 2023-11-29 09:33 | XMS_ITS | Continuity of Care Document ---
Author Organization [facility] Address [address] [place] [address]- Care Team Providers Care Warp Dresser Name Role Phone [place] Grissom MD Primary Care Physician [place] [facility] [place] Date(s): 04/19/22 - 04/26/22 [facility] [address] [place], [place] [address] Attending Physician: Denilson Gutierrez DO Referring Physician: [place] Grissom MD Allergies, Adverse [...] Gi jennifer 1Result Comment: [facility]:[id number] 2Admin Note: Manufactured by: [employer] 3Admin Note: SANOFI PASTEUR Medications Albuterol (Eqv-ProAir HFA) 90 mcg/inh inhalation aerosol 2 puffs, Inhalation, Every 4 hours, PRN NEEDED FOR WHEEZING, # 8.5 Gm, 5 Refills, 04/25/22 9:56:00 EDT, [facility] #62485, 16, 2 puffs Inhalation Every 4 hours,PRN: NEEDED FOR WHEEZING, 162.56, cm, 04/19/22 9:56:00 EDT, Height, 112.1, k... Start Date: 04/25/22 Status: Ordered albuterol 0.083% inhalation solution 3 mL = 2.5 mg, Inhalation, Every 6 hours, PRN for wheezing, # 60 each, 1 Refills, Maintenance, 02/26/22 9:27:00 EDT, Solution, [facility] #80019, Partial fill upon patient request if the prescription is for a schedule II opioid drug., 162.56... Start Date: 02/26/22 Status: Ordered Breo Ellipta 100 mcg-25 mcg/inh inhalation powder 1 puffs, Inhalation, Daily, # 3 each, 3 Refills, 02/16/22 12:14:00 EDT, [facility] #61515, no substitutuion - brand name necessary, 1 puffs Inhalation Daily, 162.56, cm, 02/02/22 15:09:00 EDT, Height, 112.1, kg, 02/02/22 15:11:00 EDT, Dry We... Start Date: 02/16/22 Status: Ordered EpiPen 2-Gage 0.3 mg injectable kit See Instructions, Intramuscular Once, # 1 pack/packet, 0 Refills, Soft Stop, 07/18/20 15:15:00 EST,[facility] #80094, 165.5, cm, 05/19/20 10:10:00 EST, Height, 102.1, kg, 09/08/19 15:11:00EST, Dry Weight Start Date: 07/18/20 Status: Ordered escitalopram 10 mg oral tablet 1.5 tablet = 15 mg, By Mouth, Daily at bedtime, dose increase, # 45 tablet, 11 Refills, Maintenance, 11/06/21 15:12:00 EDT, [facility] #32149, Partial fill upon patient request if the [...] tablet, 1 Refills,Maintenance, 02/16/22 12:16:00 EDT, Tablet, [facility] #57687, 162.56, cm, 02/02/22 15:09:00 EDT, Height, 112.1, [...] Active Severe obesity Confirmed Active 1both parents Vital Signs Most recent to oldest [Reference Range]: 1 Height 162.56 cm (04/19/22 9:56 AM) Oxygen Saturation [94-100 %] 98 % (04/19/22 9:56 AM) Pulse Rate [55-90 bpm] 101 bpm *H* (04/19/22 9:56 AM) Blood Pressure [90-138/55-84 mm Hg] 139/ 82mm Hg *H* (04/19/22 9:56 AM) Respiratory Rate [16-30 br/min] 24 br/mi n (04/19/22 9:56 AM) Temperature [96.8-100.4 DegF] 98.1 DegF (04/19/22 9:56 AM) Mode of Delivery (Oxygen) Room air (04/19/22 9:56 AM) Blood pressure sites Arm, left (04/19/22 9:56 AM) Temperature Route Temporal (04/19/22 9:56 AM) Social History Social History Type Response Smoking Status Former smoker, quit more than 30 days ago entered on: 02/01/21 Sex Patient Care team information Personnel Name: [place] Grissom MD Address: Address: [address], [place] [address]
--- OUTSIDE RECORDS SUMMARY | 2023-11-29 09:33 | XMS_ITS | Continuity of Care Document ---
Author Organization [facility] Address [address] [place] [address]- Care Team Providers Care Stitching Department Supervisor Name Role Phone [place] Grissom MD Primary Care Physician [place] [facility] [place]): [place] 03/29[place]23 [facility] [address] [place] [address]- Encounter Diagnosis Prediabetes(Discharge Diagnosis) - 03/26/23 Attending Physician: Boston Grissom MD Allergies, Adverse Reactions, Alerts Substance Reaction Severity Status Flovent chest pain Active Nuts anaphalaxis Active Immunizations Given and Recorded Vaccine Date Status Refusal Reason influenza virus vaccine, inactivated 07/02/22 Gustavo rded influenza virus vaccine, inactivated 1 09/25/21 Gi jennifer influenza virus vaccine, inactivated 04/14/09 Give n [id number] 12y+ bivalent booster vax 07/02/22 Recorded SARS-CoV-2 (COVID-19) mRNA BNT-162b2 vac 07/03/21 Recorded SARS-CoV-2 (COVID-19) mRNA-1273 vaccine 09/07/20 R ecorded SARS-CoV-2 (COVID-19) mRNA-1273 vaccine 08/10/20 R ecorded tetanus/diphtheria/pertussis, acel(Tdap) 02/18/17 Given influ virus vac, H1N1, inactive(oldterm) 2 05/06/09 Given Pneumococcal Poly (PPV23) (oldterm) 06/11/07 Given Tet/Diphth/Acel, Pertussis (oldterm) 3 12/25/06 Gi jennifer 1Result Comment: [facility]:[id number] 2Admin Note: Manufactured by: [employer] 3Admin Note: SANOFI PASTEUR Medications acetaminophen [...] 8.5 Gm, 5 Refills, 03/12/23 10:03:00 EDT, [facility] #[id number], 16, 2 puffs Inhalation Every 4 hours,PRN: [...] each, 3 Refills, Maintenance, 01/28/23 9:16:00 EDT, [facility] #[id number], 90, INHALE 1 PUFF BY MOUTH DAILY, 162, cm, 01/13/23 7:02:00 EDT, Height, 115.9, kg, 01/11/23 12:29:00 EDT, Dry Weight Start Date: 01/28/23 Status: Ordered Breo Ellipta 100 mcg-25 mcg/inh inhalation powder 1 puffs, Inhalation, Daily, # 3 each, 3 Refills, Maintenance, 03/22/23 13:52:00 EDT, [facility] #96505, 1 puffs Inhalation Daily, 162, cm, 01/13/23 [...] pack/packet, 0 Refills, Soft Stop, 07/18/20 15:15:00 EST,[facility] #36351, 165.5, cm, 05/19/20 10:10:00 EST, Height, 102.1, [...] Dates Health Status Clini valeriy Service Informant Prediabetes Discharge Diagnosis 03/26/23 Vital Signs Most recent to oldest [Reference Range]: 1 Height 162 cm (03/22/23 1:53 PM) Weight 117.1 kg (03/22/23 1:53 PM) Oxygen Saturation [94-100 %] 97 % (03/22/23 1:53 PM) Pulse Rate [55-90 bpm] 104 bpm *H* (03/22/23 1:53 PM) Body Mass Index [18.5-24.99 kg/m2] 44.62 kg/m2 *>HHI* (03/22/23 1:53 PM) Blood Pressure [90-138/55-84 mm Hg] 105/ 72mm Hg (03/22/23 1:53 PM) Blood pressure sites Arm, left (03/22/23 1:53 PM) Social History Social History Type Response Smoking Status Former smoker, quit more than 30 days ago entered on: 02/01/21 Sex Patient Care team information Care Team Personnel Name: Boston Grissom MD Position: [facility] Physician - Primary Care Member Role: PCP Address: Address: [address] [place] [address]- Care Team Related Persons Name: ANTWON GARCIA Address: home [address] [place] [address]
--- OUTSIDE RECORDS SUMMARY | 2023-11-29 09:33 | XMS_ITS | Continuity of Care Document ---
Author Organization [facility] Address [address] [place] [address]- Care Team Providers Care Director Peoplesoft Name Role Phone Jaciel WILSON, [place] Primary Care Physician [phone] Encounter [facility] [place] Date(s): 07/22/22 - 08/21/22 [facility] [address] [place] [address]- Allergies, Adverse Reactions, Alerts Substance Reaction Severity [...] 3 12/25/06 Gi jennifer 1Result Comment: [facility]:[id number] 2Admin Note: Manufactured by: [employer] 3Admin Note: SANOFI PASTEUR Medications Albuterol (Eqv-ProAir HFA) 90 mcg/inh inhalation aerosol 2 puffs, Inhalation, Every 4 hours, PRN NEEDED FOR WHEEZING, # 8.5 Gm, 5 Refills, 04/25/22 9:56:00 EDT, [facility] #05155, 16, 2 puffs Inhalation Every 4 hours,PRN: NEEDED FOR WHEEZING, 162.56, cm, 04/19/22 9:56:00 EDT, Height, 112.1, k... Start Date: 04/25/22 Status: Ordered albuterol 0.083% inhalation solution 3 mL = 2.5 mg, Inhalation, Every 6 hours, PRN for wheezing, # 60 each, 1 Refills, Maintenance, 02/26/22 9:27:00 EDT, Solution, [facility] #98238, Partial fill upon patient request if the prescription is for a schedule II opioid drug., 162.56... Start Date: 02/26/22 Status: Ordered Breo Ellipta 100 mcg-25 mcg/inh inhalation powder 1 puffs, Inhalation, Daily, # 3 each, 3 Refills, 02/16/22 12:14:00 EDT, [facility] #79388, no substitutuion - brand name necessary, 1 puffs Inhalation Daily, 162.56, cm, 02/02/22 15:09:00 EDT, Height, 112.1, kg, 02/02/22 15:11:00 EDT, Dry We... Start Date: 02/16/22 Status: Ordered EpiPen 2-Gage 0.3 mg injectable kit See Instructions, Intramuscular Once, # 1 pack/packet, 0 Refills, Soft Stop, 07/18/20 15:15:00 EST,[facility] #10092, 165.5, cm, 05/19/20 10:10:00 EST, Height, 102.1, kg, 09/08/19 15:11:00EST, Dry Weight Start Date: 07/18/20 Status: Ordered escitalopram 10 mg oral tablet 1.5 tablet = 15 mg, By Mouth, Daily at bedtime, dose increase, # 45 tablet, 11 Refills, Maintenance, 11/06/21 15:12:00 EDT, [facility] #05409, Partial fill upon patient request if the [...] tablet, 1 Refills,Maintenance, 02/16/22 12:16:00 EDT, Tablet, [facility] #08096, 162.56, cm, 02/02/22 15:09:00 EDT, Height, 112.1, [...] Team Personnel Name: Boston Grissom MD Position: [facility] Primary Care Physician Member Role: PCP Address: Address: [address] [place] [address]- Care Team Related Persons Name: ANTWON GARCIA Address: [address] [place] [address]
--- OUTSIDE RECORDS SUMMARY | 2023-11-29 09:33 | XMS_ITS | Continuity of Care Document ---
Author Organization [facility] Adult Address [address] [place] [address]- Care Team Providers Care Chef Broiler Or Fry Name Role Phone Boston Grissom MD Primary Care Physician En[facility] [place] Date(s): 09/25/23 - 10/25/23 [facility] [address] [place], [place] [address] Attending Physician: Scott Murcia Admitting Physician: Scott Murcia Referring Physician: Scott Murcia Allergies, Adverse Reactions, Alerts Substance Reaction Severity Status Flovent chest pain Active Nuts anaphalaxis Active Immunizations Given and Recorded Vaccine Date Status Refusal Reason influenza virus vaccine, inactivated 07/02/22 Gustavo rded influenza virus vaccine, inactivated 1 09/25/21 Gi jennifer influenza virus vaccine, inactivated 04/14/09 Give n [id number] 12y+ bivalent booster vax 07/02/22 Recorded SARS-CoV-2 (COVID-19) mRNA BNT-162b2 vac 07/03/21 Recorded SARS-CoV-2 (COVID-19) mRNA-1273 vaccine 09/07/20 R ecorded SARS-CoV-2 (COVID-19) mRNA-1273 vaccine 08/10/20 R ecorded tetanus/diphtheria/pertussis, acel(Tdap) 02/18/17 Given influ virus vac, H1N1, inactive(oldterm) 2 05/06/09 Given Pneumococcal Poly (PPV23) (oldterm) 06/11/07 Given Tet/Diphth/Acel, Pertussis (oldterm) 3 12/25/06 Gi jennifer 1Result Comment: [facility]:[id number] 2Admin Note: Manufactured by: [employer]. 3Admin Note: SANOFI PASTEUR Medications acetaminophen 325 [...] 8.5 Gm, 5 Refills, 03/12/23 10:03:00 EDT, [facility] #[id number], 16, 2 puffs Inhalation Every 4 hours,PRN: [...] 0 Refills, Maintenance, 07/10/23 16:07:00 EST, Capsule, [facility] #26111, Partial fill upon patient request if the prescription is for a schedule II opi... Start Date: 07/10/23 Status: Ordered Breo Ellipta 100 mcg-25 mcg/inh inhalation powder 1 puffs, Inhalation, Daily, # 3 each, 3 Refills, Maintenance, 03/22/23 13:52:00 EDT, [facility] #73308, 1 puffs Inhalation Daily, 162, cm, 01/13/23 7:02:00 EDT, Height, 115.9, kg, 01/11/23 12:29:00 EDT, Dry Weight Start Date: 03/22/23 Status: Ordered Breo Ellipta 100 mcg-25 mcg/inh inhalation powder 1 puffs, Inhalation, Daily, # 180 each, 3 Refills, Maintenance, 07/18/23 18:06:00 EST, [facility], 90, Brand name medically necessary - no substitutions, 1 puffs Inhalation Daily, 163, cm, 07/10/23 15:31:00 EST, Height, 127.5, kg, 12/... Start Date: 07/18/23 Status: Ordered budesonide-formoterol 160 mcg-4.5 mcg/inh inhalation aerosol with adapter 2, puffs, Inhalation, 2 times a day, to replace Breo, # 1 each, Refills 11, Tot. Refills 11, Maintenance, 07/17/23 8:19:00 EST, Route to Pharmacy Electronically, [id number],[facility] #[id number], 163, cm, 07/10/23 15:3... Start Date: 07/17/23 [...] pack/packet, 0 Refills, Soft Stop, 07/18/20 15:15:00 EST,[facility] #[id number], 165.5, cm, 05/19/20 10:10:00 EST, Height, 102.1, [...] Care Member Role: PCP Address: Address: [address] [place] [address]- Care Team Related Persons Name: ANTWON GARCIA Address: [address] [place] [address]
--- OUTSIDE RECORDS SUMMARY | 2023-11-29 09:33 | XMS_ITS | Continuity of Care Document ---
Author Organization [facility] Adult Address Unknown Care Team Providers Care Practice Coordinator Name Role Phone [place] Grissom MD Primary Care Physician Encounter [facility] [place] Date(s): 11/27/21 - 12/27/21 [facility] Allergies, Adverse Reactions, Alerts Substance Reaction [...] Gi jennifer 1Result Comment: [facility]:[id number] 2Admin Note: Manufactured by: [employer] 3Admin Note: SANOFI PASTEUR Medications Albuterol (Eqv-ProAir HFA) 90 mcg/inh inhalation aerosol 2 puffs, Inhalation, Every 4 hours, PRN NEEDED FOR WHEEZING, # 8.5 Gm, 2 Refills, [facility] #79815, 16, INHALE 2 PUFFS BY MOUTH EVERY 4 HOURS NEEDED FOR WHEEZING, 163, cm, 06/21/21 8:48:00 EST, Height, 109, kg, 02/01/21 19:07:00 EDT,... Start Date: 07/03/21 Status: Ordered Breo Ellipta 100 mcg-25 mcg/inh inhalation powder 1 puffs, Inhalation, Daily, # 3 each, 2 Refills, 10/20/21 9:30:00 EDT, [facility] #29226,1 puffs Inhalation Daily, 162.56, cm, 10/09/21 13:19:00 EDT, Height, 109.5, kg, 10/03/21 13:50:00 EDT, Dry Weight Start Date: 10/20/21 Status: Ordered EpiPen 2-Gage 0.3 mg injectable kit See Instructions, Intramuscular Once, # 1 pack/packet, 0 Refills, Soft Stop, 07/18/20 15:15:00 EST,[facility] #00050, 165.5, cm, 05/19/20 10:10:00 EST, Height, 102.1, kg, 09/08/19 15:11:00EST, Dry Weight Start Date: 07/18/20 Status: Ordered escitalopram 10 mg oral tablet 1.5 tablet = 15 mg, By Mouth, Daily at bedtime, dose increase, # 45 tablet, 11 Refills, Maintenance, 11/06/21 15:12:00 EDT, [facility] #[id number], Partial fill upon patient request if the [...]
--- OUTSIDE RECORDS SUMMARY | 2023-11-29 09:33 | XMS_ITS | Continuity of Care Document ---
Author Organization [facility] Address [address], [address] [place] [address]- Care Team Providers Care Microphone Operator Name Role Phone Jaciel WILSON, [place] Primary Care Physician [place] [facility] [place] Date(s): 01/11/21 - 02/10/[facility] [address] [place], [place] [address] Allergies, Adverse Reactions, Alerts Substance [...] each, 5 Refills, Maintenance, 07/20/20 14:16:00 EST, [facility] #[id number], 165.5, cm, 07/19/20 18:29:00 EST, Height, 102.1, kg, 09/08/19 15:11:00 EST, Dry Weight Start Date: 07/20/20 Status: Ordered Breo Ellipta 100 mcg-25 mcg/inh inhalation powder 1 puffs, Inhalation, Daily, # 1 each, 11 Refills, Maintenance, 10/03/20 15:46:00 EDT, Powder, [facility] #07106, 1 puffs Inhalation Daily, 165.5, cm, 09/20/20 13:58:00 EST, Height, 102.1, kg, 09/08/19 15:11:00 EST, Dry Weight Start Date: 10/03/20 Status: Ordered cyclobenzaprine 5 mg oral tablet 1 tablet = 5 mg, By Mouth, 3 times a day, PRN Other, PRN for leg pain, # 30 tablet, 5 Refills, Maintenance, 03/30/20 16:16:00 EDT, [facility] #60718, 165.5, cm, 09/08/19 15:08:00 EST, Height, 102.1, kg, 09/08/19 15:11:00 EST, Dry Weight Start Date: 03/30/20 Status: Ordered EpiPen 2-Gage 0.3 mg injectable kit See Instructions, Intramuscular Once, # 1 pack/packet, 0 Refills, Soft Stop, 07/18/20 15:15:00 EST,[facility] #08303, 165.5, cm, 05/19/20 10:10:00 EST, Height, 102.1, [...] 16:16:00 EDT, Aerosol, Route to Pharmacy Electronically, [id number], [facility] #62671, 165.5, cm, 09/08/19 15:0... Start Date: 03/30/20 [...]
--- OUTSIDE RECORDS SUMMARY | 2023-11-29 09:33 | XMS_ITS | Continuity of Care Document ---
Author Organization [facility] Address Unknown Care Team Providers Care Produce Field Merchandiser Name Role Phone Boston Grissom MD Primary Care Physician Encounter [facility] Date(s): 06/29/21 - 10/11/21 [facility] Attending Physician: Nagi Apodaca MD Referring Physician: [...] 1Result Comment: [facility]:[id number] 2Admin Note: Manufactured by: [employer] 3Admin Note: SANOFI PASTEUR Medications Albuterol (Eqv-ProAir HFA) 90 mcg/inh inhalation aerosol 2 puffs, Inhalation, Every 4 hours, PRN NEEDED FOR WHEEZING, # 8.5 Gm, 2 Refills, [facility] #[id number], 16, INHALE 2 PUFFS BY MOUTH EVERY 4 HOURS NEEDED FOR WHEEZING, 163, cm, 06/21/21 8:48:00 EST, Height, 109, kg, 02/01/21 19:07:00 EDT,... Start Date: 07/03/21 Status: Ordered Breo Ellipta 100 mcg-25 mcg/inh inhalation powder 1 puffs, Inhalation, Daily, # 60 each, 0 Refills, [facility] #34149, 30, INHALE 1 PUFF BYMOUTH DAILY, 162.56, cm, 10/03/21 13:50:00 EDT, Height, 109.5, kg, 10/03/21 13:50:00 EDT, Dry Weight Start Date: 10/09/21 Status: Ordered EpiPen 2-Gage 0.3 mg injectable kit See Instructions, Intramuscular Once, # 1 pack/packet, 0 Refills, Soft Stop, 07/18/20 15:15:00 EST,[facility] #24883, 165.5, cm, 05/19/20 10:10:00 EST, Height, 102.1, kg, 09/08/19 15:11:00EST, Dry Weight Start Date: 07/18/20 Status: Ordered escitalopram 10 mg oral tablet 1 tablet = 10 mg, By Mouth, Daily at bedtime, # 30 tablet, 11 Refills, Maintenance, 09/25/21 14:47:00 EDT, [facility] #54635, Partial fill upon patient request if the [...]
--- OUTSIDE RECORDS SUMMARY | 2023-11-29 09:33 | XMS_ITS | Continuity of Care Document ---
Author Organization [facility] Address [address] [place] [address]- Care Team Providers Care Automotive Diagnostic Technician Name Role Phone Jaciel WILSON, [place] Primary Care Physician Encounter [facility] [place] Date(s): 07/18/22 - 08/17/22 [facility] [address] [place] [address]- Allergies, Adverse Reactions, Alerts Substance Reaction Severity [...] (oldterm) 3 12/25/06 Gi jennifer 1Result Comment: [facility]:[id number] 2Admin Note: Manufactured by: [employer] 3Admin Note: SANOFI PASTEUR Medications Albuterol (Eqv-ProAir HFA) 90 mcg/inh inhalation aerosol 2 puffs, Inhalation, Every 4 hours, PRN NEEDED FOR WHEEZING, # 8.5 Gm, 5 Refills, 04/25/22 9:56:00 EDT, [facility] #[id number], 16, 2 puffs Inhalation Every 4 hours,PRN: NEEDED FOR WHEEZING, 162.56, cm, 04/19/22 9:56:00 EDT, Height, 112.1, k... Start Date: 04/25/22 Status: Ordered albuterol 0.083% inhalation solution 3 mL = 2.5 mg, Inhalation, Every 6 hours, PRN for wheezing, # 60 each, 1 Refills, Maintenance, 02/26/22 9:27:00 EDT, Solution, [facility] #[id number], Partial fill upon patient request if the prescription is for a schedule II opioid drug., 162.56... Start Date: 02/26/22 Status: Ordered Breo Ellipta 100 mcg-25 mcg/inh inhalation powder 1 puffs, Inhalation, Daily, # 3 each, 3 Refills, 02/16/22 12:14:00 EDT, [facility] #40816, no substitutuion - brand name necessary, 1 puffs Inhalation Daily, 162.56, cm, 02/02/22 15:09:00 EDT, Height, 112.1, kg, 02/02/22 15:11:00 EDT, Dry We... Start Date: 02/16/22 Status: Ordered EpiPen 2-Gage 0.3 mg injectable kit See Instructions, Intramuscular Once, # 1 pack/packet, 0 Refills, Soft Stop, 07/18/20 15:15:00 EST,[facility] #68019, 165.5, cm, 05/19/20 10:10:00 EST, Height, 102.1, kg, 09/08/19 15:11:00EST, Dry Weight Start Date: 07/18/20 Status: Ordered escitalopram 10 mg oral tablet 1.5 tablet = 15 mg, By Mouth, Daily at bedtime, dose increase, # 45 tablet, 11 Refills, Maintenance, 11/06/21 15:12:00 EDT, [facility] #23344, Partial fill upon patient request if the [...] tablet, 1 Refills,Maintenance, 02/16/22 12:16:00 EDT, Tablet, [facility] #71983, 162.56, cm, 02/02/22 15:09:00 EDT, Height, 112.1, [...] Boston Grissom MD Position: [facility] Primary Care Physician Member Role: PCP Address: Address: [address] [place] [address]- Care Team Related Persons Name: ANTWON GARCIA Address: home [address] [place] [address]
--- OUTSIDE RECORDS SUMMARY | 2023-11-29 09:33 | XMS_ITS | Continuity of Care Document ---
Author Organization [facility] Address [address] [place] [address]- Care Team Providers Care Grain Wafer Machine Operator Name Role Phone Jaciel WILSON, [place] Primary Care Physician [phone] [place] [facility] [place]18[place] - 08/17/22 [facility] [address] [place] [address]- Allergies, Adverse Reactions, Alerts Substance Reaction Severity Status Flovent chest pain Active Nuts anaphalaxis Active Immunizations Given and Recorded Vaccine Date Status Refusal Reason influenza virus vaccine, inactivated 1 09/25/21 Gi jeninfer influenza virus vaccine, inactivated 04/14/09 Give n SARS-CoV-2 (COVID-19) mRNA BNT-162b2 vac 07/03/21 Recorded SARS-CoV-2 (COVID-19) mRNA-1273 vaccine 09/07/20 R ecorded SARS-CoV-2 (COVID-19) mRNA-1273 vaccine 08/10/20 R ecorded tetanus/diphtheria/pertussis, acel(Tdap) 02/18/17 Given influ virus vac, H1N1, inactive(oldterm) 2 05/06/09 Given Pneumococcal Poly (PPV23) (oldterm) 06/11/07 Given Tet/Diphth/Acel, Pertussis (oldterm) 3 12/25/06 Gi jennifer 1Result Comment: [facility]:[id number] 2Admin Note: Manufactured by: [employer] 3Admin Note: SANOFI PASTEUR Medications Albuterol (Eqv-ProAir HFA) 90 mcg/inh inhalation aerosol 2 puffs, Inhalation, Every 4 hours, PRN NEEDED FOR WHEEZING, # 8.5 Gm, 5 Refills, 04/25/22 9:56:00 EDT, [facility] #72231, 16, 2 puffs Inhalation Every 4 hours,PRN: NEEDED FOR WHEEZING, 162.56, cm, 04/19/22 9:56:00 EDT, Height, 112.1, k... Start Date: 04/25/22 Status: Ordered albuterol 0.083% inhalation solution 3 mL = 2.5 mg, Inhalation, Every 6 hours, PRN for wheezing, # 60 each, 1 Refills, Maintenance, 02/26/22 9:27:00 EDT, Solution, [facility] #[id number], Partial fill upon patient request if the prescription is for a schedule II opioid drug., 162.56... Start Date: 02/26/22 Status: Ordered Breo Ellipta 100 mcg-25 mcg/inh inhalation powder 1 puffs, Inhalation, Daily, # 3 each, 3 Refills, 02/16/22 12:14:00 EDT, [facility] #79287, no substitutuion - brand name necessary, 1 puffs Inhalation Daily, 162.56, cm, 02/02/22 15:09:00 EDT, Height, 112.1, kg, 02/02/22 15:11:00 EDT, Dry We... Start Date: 02/16/22 Status: Ordered EpiPen 2-Gage 0.3 mg injectable kit See Instructions, Intramuscular Once, # 1 pack/packet, 0 Refills, Soft Stop, 07/18/20 15:15:00 EST,[facility] #[id number], 165.5, cm, 05/19/20 10:10:00 EST, Height, 102.1, kg, 09/08/19 15:11:00EST, Dry Weight Start Date: 07/18/20 Status: Ordered escitalopram 10 mg oral tablet 1.5 tablet = 15 mg, By Mouth, Daily at bedtime, dose increase, # 45 tablet, 11 Refills, Maintenance, 11/06/21 15:12:00 EDT, [facility] #[id number], Partial fill upon patient request if the [...] tablet, 1 Refills,Maintenance, 02/16/22 12:16:00 EDT, Tablet, [facility] #50525, 162.56, cm, 02/02/22 15:09:00 EDT, Height, 112.1, [...] Team Personnel Name: [place] Grissom MD Position: [facility] Primary Care Physician Member Role: PCP Address: Address: [address] [place] [address]- Care Team Related Persons Name: ANTWON GARCIA Address: home [address] [place] [address]
--- OUTSIDE RECORDS SUMMARY | 2023-11-29 09:33 | XMS_ITS | Continuity of Care Document ---
Author Organization [facility] Address [address] [place] [address]- Care Team Providers Care Unloading Checker Name Role Phone Boston Grissom MD Primary Care Physician Encounter [facility] Date(s): 10/21/19 - 02/18/20 [facility] [address] [place] [address]- [facility] Attending Physician: [place] Grissom MD Allergies, Adverse Reactions, Alerts Substance Reaction Severity Status Flovent Active Nuts anaphalaxis Active Immunizations Given and Recorded Vaccine Date Status Refusal Reason tetanus/diphtheria/pertussis, acel(Tdap) 02/18/17 Given influ virus vac, H1N1, inactive(oldterm) 1 05/06/09 Given influenza virus vaccine, inactivated 04/14/09 Give n Pneumococcal Poly (PPV23) (oldterm) 06/11/07 Given Tet/Diphth/Acel, Pertussis (oldterm) 2 12/25/06 Gi jennifer 1Admin Note: Manufactured by: [employer] 2Admin Note: SANOFI PASTEUR Medications albuterol 0.083% inhalation solution 3 mL, Inhalation, Every 6 hours, PRN as needed for wheezing, # 25 each, 5 Refills, Maintenance Start Date: 08/04/10 Status: Ordered Breo Ellipta 100 mcg-25 mcg/inh inhalation powder 1 puffs, Inhalation, Daily, # 1 each, 11 Refills, Maintenance, 09/25/19 15:00:00 EDT, Powder, [facility] #44909, 1 puffs Inhalation Daily, 165.5, cm, 09/08/19 15:08:00 EST, Height, 102.1, kg, 02/25/20 15:11:00 EST, Dry Weight Start Date: 09/25/19 Status: Ordered cyclobenzaprine 5 mg oral tablet 1 tablet = 5 mg, By Mouth, 3 times a day, PRN Other, PRN for leg pain, # 30 tablet, 0 Refills, Maintenance, 11/10/19 17:06:00 EDT, [facility] #87194, 165.5, cm, 09/08/19 15:08:00 EST, Height, 102.1, kg, 09/08/19 15:11:00 EST, Dry Weight Start Date: 11/10/19 Status: Ordered EpiPen 2-Gage 0.3 mg injectable [...] 08/28/17 16:19:47, Aerosol, Route to Pharmacy Electronically, [id number], [facility] [address] Start Date: 08/28/17 Status: Ordered scopolamine 1.5 [...] 08/10/19 15:17:00 EST, Route to Pharmacy Electronically, [facility] #31779, 165.5, cm, 08/10/19 14:42:00 EST, Height Start [...]
--- OUTSIDE RECORDS SUMMARY | 2023-11-29 09:33 | XMS_ITS | Continuity of Care Document ---
Author Organization [facility] Address Unknown Care Team Providers Care Dental Laboratory Worker Name Role Phone [place] Grissom MD Primary Care Physician Encounter [facility] Date(s): 11/27/21 - 12/27/21 [facility] Attending Physician: AdmtrScott Admitting Physician: Admtr, Scott Referring Physician: Admtr, Ar8 Allergies, Adverse Reactions, [...] Gi jennifer 1Result Comment: [facility]:[id number] 2Admin Note: Manufactured by: [employer] 3Admin Note: SANOFI PASTEUR Medications Albuterol (Eqv-ProAir HFA) 90 mcg/inh inhalation aerosol 2 puffs, Inhalation, Every 4 hours, PRN NEEDED FOR WHEEZING, # 8.5 Gm, 2 Refills, [facility] #[id number], 16, INHALE 2 PUFFS BY MOUTH EVERY 4 HOURS NEEDED FOR WHEEZING, 163, cm, 06/21/21 8:48:00 EST, Height, 109, kg, 02/01/21 19:07:00 EDT,... Start Date: 07/03/21 Status: Ordered Breo Ellipta 100 mcg-25 mcg/inh inhalation powder 1 puffs, Inhalation, Daily, # 3 each, 2 Refills, 10/20/21 9:30:00 EDT, [facility] #[id number],1 puffs Inhalation Daily, 162.56, cm, 10/09/21 13:19:00 EDT, Height, 109.5, kg, 10/03/21 13:50:00 EDT, Dry Weight Start Date: 10/20/21 Status: Ordered EpiPen 2-Gage 0.3 mg injectable kit See Instructions, Intramuscular Once, # 1 pack/packet, 0 Refills, Soft Stop, 07/18/20 15:15:00 EST,[facility] #[id number], 165.5, cm, 05/19/20 10:10:00 EST, Height, 102.1, kg, 09/08/19 15:11:00EST, Dry Weight Start Date: 07/18/20 Status: Ordered escitalopram 10 mg oral tablet 1.5 tablet = 15 mg, By Mouth, Daily at bedtime, dose increase, # 45 tablet, 11 Refills, Maintenance, 11/06/21 15:12:00 EDT, [facility] #[id number], Partial fill upon patient request if the [...]
--- OUTSIDE RECORDS SUMMARY | 2023-11-29 09:33 | XMS_ITS | Continuity of Care Document ---
Author Organization [facility] Adult Address [address] [place] [address]- Care Team Providers Care Booking Police Officer Name Role Phone Jaciel WILSON, [place] Primary Care Physician [phone] Encounter [facility] Date(s): 07/03/23 - 08/02/23 [facility] [address] [place] [address]- Allergies, Adverse Reactions, Alerts Substance Reaction Severity Status Flovent chest pain Active Nuts anaphalaxis Active Immunizations Given and Recorded Vaccine Date Status Refusal Reason influenza virus vaccine, inactivated 07/02/22 Gustavo rded influenza virus vaccine, inactivated 1 09/25/21 Gi jennifer influenza virus vaccine, inactivated 04/14/09 Give n [id number] 12y+ bivalent booster vax 07/02/22 Recorded SARS-CoV-2 (COVID-19) mRNA BNT-162b2 vac 07/03/21 Recorded SARS-CoV-2 (COVID-19) mRNA-1273 vaccine 09/07/20 R ecorded SARS-CoV-2 (COVID-19) mRNA-1273 vaccine 08/10/20 R ecorded tetanus/diphtheria/pertussis, acel(Tdap) 02/18/17 Given influ virus vac, H1N1, inactive(oldterm) 2 05/06/09 Given Pneumococcal Poly (PPV23) (oldterm) 06/11/07 Given Tet/Diphth/Acel, Pertussis (oldterm) 3 12/25/06 Gi jennifer 1Result Comment: [facility]:[id number] 2Admin Note: Manufactured by: [employer] 3Admin Note: SANOFI PASTEUR Medications acetaminophen [...] 8.5 Gm, 5 Refills, 03/12/23 10:03:00 EDT, [facility] #[id number], 16, 2 puffs Inhalation Every 4 hours,PRN: [...] 0 Refills, Maintenance, 07/10/23 16:07:00 EST, Capsule, [facility] #[id number], Partial fill upon patient request if the prescription is for a schedule II opi... Start Date: 07/10/23 Status: Ordered Breo Ellipta 100 mcg-25 mcg/inh inhalation powder 1 puffs, Inhalation, Daily, # 3 each, 3 Refills, Maintenance, 03/22/23 13:52:00 EDT, [facility] #[id number], 1 puffs Inhalation Daily, 162, cm, 01/13/23 7:02:00 EDT, Height, 115.9, kg, 01/11/23 12:29:00 EDT, Dry Weight Start Date: 03/22/23 Status: Ordered Breo Ellipta 100 mcg-25 mcg/inh inhalation powder 1 puffs, Inhalation, Daily, # 180 each, 3 Refills, Maintenance, 07/18/23 18:06:00 EST, [facility], 90, Brand name medically necessary - no substitutions, 1 puffs Inhalation Daily, 163, cm, 07/10/23 15:31:00 EST, Height, 127.5, kg, 12/... Start Date: 07/18/23 Status: Ordered budesonide-formoterol 160 mcg-4.5 mcg/inh inhalation aerosol with adapter 2, puffs, Inhalation, 2 times a day, to replace Breo, # 1 each, Refills 11, Tot. Refills 11, Maintenance, 07/17/23 8:19:00 EST, Route to Pharmacy Electronically, [id number],[facility] #08051, 163, cm, 07/10/23 15:3... Start Date: 07/17/23 [...] pack/packet, 0 Refills, Soft Stop, 07/18/20 15:15:00 EST,[facility] #83283, 165.5, cm, 05/19/20 10:10:00 EST, Height, 102.1, [...] Team Personnel Name: [place] Grissom MD Position: [facility] Physician - Primary Care Member Role: PCP Address: Address: [address] [place] [address]- Care Team Related Persons Name: ANTWON GARCIA Address: home [address] [place] [address]
--- OUTSIDE RECORDS SUMMARY | 2023-11-29 09:33 | XMS_ITS | Continuity of Care Document ---
Author Organization [facility] Address [address] [place] [address]- Care Team Providers Care Obstetrics Specialist Name Role Phone [place] Grissom MD Primary Care Physician Encounter [facility] Date(s): 05/10/21 - 06/09/21 [facility] [address] [place] [address]- Attending Physician: Scott Murcia Admitting Physician: Scott [...] each, 5 Refills, Maintenance, 07/20/20 14:16:00 EST, [facility] #[id number], 165.5, cm, 07/19/20 18:29:00 EST, Height, 102.1, kg, 09/08/19 15:11:00 EST, Dry Weight Start Date: 07/20/20 Status: Ordered Breo Ellipta 100 mcg-25 mcg/inh inhalation powder 1 puffs, Inhalation, Daily, # 1 each, 11 Refills, Maintenance, 10/03/20 15:46:00 EDT, Powder, [facility] #58004, 1 puffs Inhalation Daily, 165.5, cm, 09/20/20 13:58:00 EST, Height, 102.1, kg, 09/08/19 15:11:00 EST, Dry Weight Start Date: 10/03/20 Status: Ordered cyclobenzaprine 5 mg oral tablet 1 tablet, By Mouth, 3 times a day, PRN NEEDED FOR LEG PAIN, # 30 tablet, 1 Refills, Physician Stop 06/13/21 14:06:00 EST, 05/29/21 14:05:00 EST, [facility] #15484, 163, cm, 05/18/21 10:53:00 EDT, Height, 109, kg, 02/01/21 19:07:00 EDT, . Start Date: 05/29/21 Stop Date: 06/13/21 Status: Ordered EpiPen 2-Gage 0.3 mg injectable kit See Instructions, Intramuscular Once, # 1 pack/packet, 0 Refills, Soft Stop, 07/18/20 15:15:00 EST,[facility] #76574, 165.5, cm, 05/19/20 10:10:00 EST, Height, 102.1, [...] 16:16:00 EDT, Aerosol, Route to Pharmacy Electronically, [id number], [facility] #[id number], 165.5, cm, 09/08/19 15:0... Start Date: 03/30/20 [...]
--- OUTSIDE RECORDS SUMMARY | 2023-11-29 09:33 | XMS_ITS | Continuity of Care Document ---
Author Organization [facility] Address [address] [place] [address]- Care Team Providers Care Industrial Economist Name Role Phone [place] Grissom MD Primary Care Physician Encounter [facility] [id number] Date(s): 07/19/20 - 07/26/20 [facility] [address] [place] [address]- Attending Physician: Vidal Fulton MD Referring Physician: [place] Grissom MD Allergies, [...] 12/25/06 Gi jennifer 1Admin Note: Manufactured by: [employer] 2Admin Note: SafeMeds SolutionsOFI PASTEUR Medications albuterol 0.083% inhalation solution 3 mL, Inhalation, Every 6 hours, PRN as needed for wheezing, # 25 each, 5 Refills, Maintenance, 07/20/20 14:16:00 EST, [facility] #17279, 165.5, cm, 07/19/20 18:29:00 EST, Height, 102.1, kg, 09/08/19 15:11:00 EST, Dry Weight Start Date: 07/20/20 Status: Ordered Breo Ellipta 100 mcg-25 mcg/inh inhalation powder 1 puffs, Inhalation, Daily, # 1 each, 11 Refills, Maintenance, 09/25/19 15:00:00 EDT, Powder, [facility] #[id number], 1 puffs Inhalation Daily, 165.5, cm, 09/08/19 15:08:00 EST, Height, 102.1, kg, 09/08/19 15:11:00 EST, Dry Weight Start Date: 09/25/19 Status: Ordered cyclobenzaprine 5 mg oral tablet 1 tablet = 5 mg, By Mouth, 3 times a day, PRN Other, PRN for leg pain, # 30 tablet, 5 Refills, Maintenance, 03/30/20 16:16:00 EDT, [facility] #09984, 165.5, cm, 09/08/19 15:08:00 EST, Height, 102.1, kg, 09/08/19 15:11:00 EST, Dry Weight Start Date: 03/30/20 Status: Ordered EpiPen 2-Gage 0.3 mg injectable kit See Instructions, Intramuscular Once, # 1 pack/packet, 0 Refills, Soft Stop, 07/18/20 15:15:00 EST,[facility] #[id number], 165.5, cm, 05/19/20 10:10:00 EST, Height, 102.1, [...] 16:16:00 EDT, Aerosol, Route to Pharmacy Electronically, [id number], [facility] #88856, 165.5, cm, 09/08/19 15:0... Start Date: 03/30/20 [...] 08/10/19 15:17:00 EST, Route to Pharmacy Electronically, [facility] #03468, 165.5, cm, 08/10/19 14:42:00 EST, Height Start [...] pap- years ago, nl since 2both parents Vital Signs Most recent to oldest [Reference Range]: 1 Height 165.5 cm (07/19/20 6:29 PM) Oxygen Saturation [94-100 %] 98 % (07/19/20 6:29 PM) Pulse Rate [55-90 bpm] 70 bpm (07/19/20 6:29 PM) Blood Pressure [90-138/55-84 mm Hg] 108/ 50mm Hg (07/19/20 6:29 PM) Respiratory Rate [16-30 br/min] 19 br/mi n (07/19/20 6:29 PM) Temperature [96.8-100.4 DegF] 96.9 DegF (07/19/20 6:29 PM) Mode of Delivery (Oxygen) Room air (07/19/20 6:29 PM) Blood pressure sites Arm, left (07/19/20 6:29 PM) Temperature Route Temporal (07/19/20 6:29 PM) Social History Social History Type Response Smoking Status Former smoker; Type: Cigarettes; Other: on and off 10 years; entered on: 03/12/18 Sex
--- OUTSIDE RECORDS SUMMARY | 2023-11-29 09:33 | XMS_ITS | Continuity of Care Document ---
Author Organization [facility] Address [address] [place] [address]- Care Team Providers Care Fixture Builder Name Role Phone Jaciel WILSON, [place] Primary Care Physician [phone] Encounter [facility] Date(s): 03/06/23 - 04/05/23 [facility] [address] [place] [address]- Allergies, Adverse Reactions, Alerts Substance Reaction Severity Status Flovent chest pain Active Nuts anaphalaxis Active Immunizations Given and Recorded Vaccine Date Status Refusal Reason influenza virus vaccine, inactivated 07/02/22 Gustavo rded influenza virus vaccine, inactivated 1 09/25/21 Gi jennifer influenza virus vaccine, inactivated 04/14/09 Give n [id number] 12y+ bivalent booster vax 07/02/22 Recorded SARS-CoV-2 (COVID-19) mRNA BNT-162b2 vac 07/03/21 Recorded SARS-CoV-2 (COVID-19) mRNA-1273 vaccine 09/07/20 R ecorded SARS-CoV-2 (COVID-19) mRNA-1273 vaccine 08/10/20 R ecorded tetanus/diphtheria/pertussis, acel(Tdap) 02/18/17 Given influ virus vac, H1N1, inactive(oldterm) 2 05/06/09 Given Pneumococcal Poly (PPV23) (oldterm) 06/11/07 Given Tet/Diphth/Acel, Pertussis (oldterm) 3 12/25/06 Gi jennifer 1Result Comment: [facility]:[id number] 2Admin Note: Manufactured by: [employer] 3Admin Note: SANOFI PASTEUR Medications acetaminophen [...] 8.5 Gm, 5 Refills, 03/12/23 10:03:00 EDT, [facility] #10527, 16, 2 puffs Inhalation Every 4 hours,PRN: [...] each, 3 Refills, Maintenance, 01/28/23 9:16:00 EDT, [facility] #35555, 90, INHALE 1 PUFF BY MOUTH DAILY, 162, cm, 01/13/23 7:02:00 EDT, Height, 115.9, kg, 01/11/23 12:29:00 EDT, Dry Weight Start Date: 01/28/23 Status: Ordered Breo Ellipta 100 mcg-25 mcg/inh inhalation powder 1 puffs, Inhalation, Daily, # 3 each, 3 Refills, Maintenance, 03/22/23 13:52:00 EDT, [facility] #47157, 1 puffs Inhalation Daily, 162, cm, 01/13/23 [...] pack/packet, 0 Refills, Soft Stop, 07/18/20 15:15:00 EST,[facility] #01994, 165.5, cm, 05/19/20 10:10:00 EST, Height, 102.1, [...] Primary Care Member Role: PCP Address: Address: [address] [place] [address]- Care Team Related Persons Name: ANTWON GARCIA Address: [address] [place] [address]
--- OUTSIDE RECORDS SUMMARY | 2023-11-29 09:33 | XMS_ITS | Continuity of Care Document ---
Author Organization [facility] Adult Address Unknown Care Team Providers Care Evp General Counsel Name Role Phone [place] Grissom MD Primary Care Physician [phone] Encounter [facility] Date(s): 04/25/21 - 05/25/21 [facility] Allergies, Adverse Reactions, Alerts Substance Reaction [...] 12/25/06 Gi jennifer 1Admin Note: Manufactured by: [employer] 2Admin Note: SANOFI PASTEUR Medications albuterol 0.083% inhalation solution 3 mL, Inhalation, Every 6 hours, PRN as needed for wheezing, # 25 each, 5 Refills, Maintenance, 07/20/20 14:16:00 EST, [facility] #53689, 165.5, cm, 07/19/20 18:29:00 EST, Height, 102.1, kg, 09/08/19 15:11:00 EST, Dry Weight Start Date: 07/20/20 Status: Ordered Breo Ellipta 100 mcg-25 mcg/inh inhalation powder 1 puffs, Inhalation, Daily, # 1 each, 11 Refills, Maintenance, 10/03/20 15:46:00 EDT, Powder, [facility] #79920, 1 puffs Inhalation Daily, 165.5, cm, 09/20/20 13:58:00 EST, Height, 102.1, kg, 09/08/19 15:11:00 EST, Dry Weight Start Date: 10/03/20 Status: Ordered cyclobenzaprine 5 mg oral tablet 1 tablet, By Mouth, 3 times a day, PRN NEEDED FOR LEG PAIN, # 30 tablet, 0 Refills, [facility] #27279, 165.5, cm, 02/01/21 19:07:00 EDT, Height, 109, kg, 02/01/21 19:07:00 EDT, Dry Weight Start Date: 04/24/21 Status: Ordered EpiPen 2-Gage 0.3 mg injectable kit See Instructions, Intramuscular Once, # 1 pack/packet, 0 Refills, Soft Stop, 07/18/20 15:15:00 EST,[facility] #61671, 165.5, cm, 05/19/20 10:10:00 EST, Height, 102.1, [...] 16:16:00 EDT, Aerosol, Route to Pharmacy Electronically, [id number], [facility] #[id number], 165.5, cm, 09/08/19 15:0... Start Date: 03/30/20 [...]
--- OUTSIDE RECORDS SUMMARY | 2023-11-29 09:33 | XMS_ITS | Continuity of Care Document ---
Author Organization [facility] Adult Address Unknown Care Team Providers Care Meat Boner And Slicer Name Role Phone [place] Grissom MD Primary Care Physician [phone] Encounter [facility] Date(s): 03/23[facility]21 [facility] Allergies, Adverse Reactions, Alerts [...] 12/25/06 Gi jennifer 1Admin Note: Manufactured by: [employer] 2Admin Note: SANOFI PASTEUR Medications albuterol 0.083% inhalation solution 3 mL, Inhalation, Every 6 hours, PRN as needed for wheezing, # 25 each, 5 Refills, Maintenance, 07/20/20 14:16:00 EST, [facility] #37517, 165.5, cm, 07/19/20 18:29:00 EST, Height, 102.1, kg, 09/08/19 15:11:00 EST, Dry Weight Start Date: 07/20/20 Status: Ordered Breo Ellipta 100 mcg-25 mcg/inh inhalation powder 1 puffs, Inhalation, Daily, # 1 each, 11 Refills, Maintenance, 10/03/20 15:46:00 EDT, Powder, [facility] #65237, 1 puffs Inhalation Daily, 165.5, cm, 09/20/20 13:58:00 EST, Height, 102.1, kg, 09/08/19 15:11:00 EST, Dry Weight Start Date: 10/03/20 Status: Ordered cyclobenzaprine 5 mg oral tablet 1 tablet = 5 mg, By Mouth, 3 times a day, PRN Other, PRN for leg pain, # 30 tablet, 5 Refills, Maintenance, 03/30/20 16:16:00 EDT, [facility] #67046, 165.5, cm, 09/08/19 15:08:00 EST, Height, 102.1, kg, 09/08/19 15:11:00 EST, Dry Weight Start Date: 03/30/20 Status: Ordered EpiPen 2-Gage 0.3 mg injectable kit See Instructions, Intramuscular Once, # 1 pack/packet, 0 Refills, Soft Stop, 07/18/20 15:15:00 EST,[facility] #65472, 165.5, cm, 05/19/20 10:10:00 EST, Height, 102.1, [...] 16:16:00 EDT, Aerosol, Route to Pharmacy Electronically, [id number], [facility] #04685, 165.5, cm, 09/08/19 15:0... Start Date: 03/30/20 [...]
--- OUTSIDE RECORDS SUMMARY | 2023-11-29 09:33 | XMS_ITS | Continuity of Care Document ---
Author Organization [facility] Adult Address [address] [place] [address]- Care Team Providers Care Manager Recruitment Name Role Phone [place] Grissom MD Primary Care Physician Encounter [facility] Date(s): 09/20/20 - 10/20/20 [facility] [address] [place] [address]- Attending Physician: Admtr, Ar8 Allergies, Adverse Reactions, [...] each, 5 Refills, Maintenance, 07/20/20 14:16:00 EST, [facility] #89871, 165.5, cm, 07/19/20 18:29:00 EST, Height, 102.1, kg, 09/08/19 15:11:00 EST, Dry Weight Start Date: 07/20/20 Status: Ordered Breo Ellipta 100 mcg-25 mcg/inh inhalation powder 1 puffs, Inhalation, Daily, # 1 each, 11 Refills, Maintenance, 10/03/20 15:46:00 EDT, Powder, [facility] #89232, 1 puffs Inhalation Daily, 165.5, cm, 09/20/20 13:58:00 EST, Height, 102.1, kg, 09/08/19 15:11:00 EST, Dry Weight Start Date: 10/03/20 Status: Ordered cyclobenzaprine 5 mg oral tablet 1 tablet = 5 mg, By Mouth, 3 times a day, PRN Other, PRN for leg pain, # 30 tablet, 5 Refills, Maintenance, 03/30/20 16:16:00 EDT, [facility] #30182, 165.5, cm, 09/08/19 15:08:00 EST, Height, 102.1, kg, 09/08/19 15:11:00 EST, Dry Weight Start Date: 03/30/20 Status: Ordered EpiPen 2-Gage 0.3 mg injectable kit See Instructions, Intramuscular Once, # 1 pack/packet, 0 Refills, Soft Stop, 07/18/20 15:15:00 EST,[facility] #36530, 165.5, cm, 05/19/20 10:10:00 EST, Height, 102.1, [...] 16:16:00 EDT, Aerosol, Route to Pharmacy Electronically, [id number], [facility] #79416, 165.5, cm, 09/08/19 15:0... Start Date: 03/30/20 Status: Ordered traZODone 50 mg oral tablet 50 mg, 1, tablet, By Mouth, Daily at bedtime, # 30 tablet, Refills 11, Tot. Refills 11, Maintenance, 08/10/19 15:17:00 EST, Route to Pharmacy Electronically, [facility] #93691, 165.5, cm, 08/10/19 14:42:00 EST, Height Start [...]
--- NOTE | 2023-11-29 12:26 | A.OFFVIS_ITS ---
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 Allergies tree nut Allergy (Severe, Verified 11/29/23 12:26) Anaphylaxis Medication List - Last Reconciled 11/29/23 by Alexys Lubin MD albuterol sulfate 90 mcg/actuation 2 puffs inhalation Q6H PRN ascorbic acid (vitamin C) mg PO cholecalciferol (vitamin D3) 50 mcg PO DAILY ferrous sulfate (Feosol) 325 mg PO DAILY fluticasone furoate-vilanterol 100-25 mcg/dose (Breo Ellipta) 1 inh inhalation Q24H HPI 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: Details: Start time: 1.18am, End time: 1.03pm ?I spent 40 minutes speaking with the patient on the phone plus an additional 5 minutes reviewing and updating records for a total of 45 minutes HPI Comments Details: Previous weight loss efforts: (Sleeve gastrectomy, pre-sleeve: 285lbs, lowest: 180lbs) Wakes up: 6am, Sleeps: 8.30pm Breakfast: 9.30am (Avocado toast, oatmeal, bagel) Lunch: 1pm (left over dinner) Dinner: 6pm (meat, rice, potatoes, vegetables) Snacks: 8pm (yogurt, chocolate bar, donut) Exercise: has a stationary bike Fluids: Coffee (2 cups/day with creamer), tea: none, soda: Sprite/Gingerale, juice: none, ETOH: 1/3 months PFSH Medical History (Updated 11/29/23 @ 12:37 by Alexys Lubin MD) DJD (degenerative joint disease) Asthma Morbid obesity Surgical History (Updated 10/11/23 @ 13:28 by Rina White CMA) History of hip replacement Hx of laparoscopic partial gastrectomy Family History (Updated 10/11/23 @ 13:36 by Rina White CMA) Mother Breast cancer Paternal Aunt Cervical cancer Breast cancer Paternal Uncle FHx: prostate cancer Social History (Updated 10/11/23 @ 13:37 by Rina White CMA) Alcohol intake: current Alcohol intake frequency: holidays/special occasions only Alcohol type: wine and hard liquor Patient Tobacco Use Status: Never used Tobacco Telehealth Telehealth Telehealth Platform: Telephone Location of provider rendering services: practice address Location of patient: address on file Patient Identification confirmed using: Name, : Yes Telehealth method: voice only Patient verbally consented to treatment: Yes Patient verbally consented to billing insurance company: Yes Patient informed of any privacy concerns related to visit: Yes Minutes spent on Phone/Video with Pt.: 45 Assessment & Plan Assessment & Plan (1) Morbid obesity: Code(s): E66.01 - Morbid (severe) obesity due to excess calories Category: Medical Plan: 1.? Plan for lap sleeve gastrectomy revision. If diaphragmatic or ventral hernias are present at time of surgery, these will be repaired laparoscopically as well. Risks and complications were discussed in detail including possible conversion to an open procedure, anastomotic leak, bleeding requiring transfusion, small bowel obstruction, , DVT and pulmonary embolism, cardiac, or pulmonary complications, as marine oil terminal superintendent complications such as anastomotic ulcer, insufficient weight loss and vitamin deficiencies. I emphasized the importance of close follow-up, adherence to instructions and good communication. 2. You will receive a link of our software julianna to generate an individualized nutritional and exercise plan specific for you. Please send me a screenshot of the plans you will generate Meal to include lean meat (beef, fish, pork, turkey, chicken), or czech yogurt, or egg whites, or beans with a salad with olive oil and fruits (berries, pears, apples, kiwi). Avoid salt, breads, potatoes, rice, pasta, desserts. ?3. If you choose shakes, each shake would be drunk slowly, like coffee in a period of 2 hours. ?4. If you choose bars, cut each bar in 4 pieces and eat each piece in 30min ?to make each bar last 2 hours. ?5. I emphasized the importance of measuring accurately the food portion and measure it when serving the food in plate ?6. The meal portions include a specific number of forks of meat and salad. You always eat the meat portion but you can replace up to half of salad/vegetables portion with rice, potatoes or pasta, or a fruit ?if you like. The less you do it the better weight loss will be. ?7. One full-size fork is what it can be scooped on the fork without falling aside and not what can be bit with the fork. Use regular forks like those you find in a typical restaurant. ?8.? Please send me weight measurements as soon as possible and then once a week. Always include your diet and exercise plan. 9. The best choice would be to purchase a stationary bike, elliptical or treadmill at home that can track calories. Let me know if you do so I can give you an exercise plan. ?10.?It is important of avoiding and for at least 18 months postoperatively and has been discussed at the infosession. ?11. Goal is to lose at least 1.5-2lbs per week ?12. Goal to lose 10% of your weight before surgery, which is about 25lbs. Ultimate weight goal: 225lbs before surgery 13. Please follow the diet plan exactly without any change. If you don't like something about the plan or you feel hungry you need to communicate with me so I can help you revise the plan. You should not change the plan yourself. 14. To be scheduled for EGD due to history of sleeve gastrectomy and the risk of esophagitis. The possibility of biopsies was discussed. Patient needs to avoid use of NSAIDs and aspirin for 1 week prior to EGD. Risks of perforation and? bleeding was discussed with the patient. This will be an outpatient procedure with IV sedation.
[2023-11-29 12:55] VITALS: BMI 42.1
== END 2023-11-29 13:03 | disposition home or self-care (01) ==
LOC: HO.HBS 09:29
PROVIDERS: Visit Provider Surgery
DX: E66.01 Morbid (severe) obesity due to excess calories (principal); Z68.41 Body mass index [BMI] 40.0-44.9, adult
CPT/HCPCS: 99443

== ENCOUNTER → 2023-11-29 09:28 | Outpatient (BNVA) | payer MEDICARE, SELFPAY | PROVIDERS: Visit Provider Surgery ==

== ENCOUNTER 2023-12-16 06:52 | Outpatient (REF) | payer MEDICARE, SELFPAY ==
--- NOTE | ~2023-12-16 | XR_ITS ---
EXAMINATION: XR CHEST CLINICAL INFORMATION: Morbid obesity, severe due to access calories, preop. COMPARISON: None available. TECHNIQUE: 2 views of the chest were obtained. FINDINGS: There is no gross pneumothorax. Heart size within normal limits. Mild degenerative changes in the thoracic spine. No pleural effusion. No new focal consolidation to suggest pneumonia. XR/XR chest 2V IMPRESSION: No evidence of pneumonia.
[2023-12-16 07:09] LABS: MANUAL DIFF FLAG NO
[2023-12-16 07:13] LABS: Basophils Percent Auto 0.7 % (0-2); Eosinophils Absolute Auto 0.3 X10*3/uL (0.0-0.4); Hematocrit 33.7 % (37.0-47.0); Hemoglobin 9.6 g/dl (12.0-16.0); Imm Gran Abs Auto 0.03 X10*3/uL (0.00-0.03); Imm Gran Pct Auto 0.6 % (0.0-0.4); Lymphocytes Absolute Auto 1.6 X10*3/uL (1.2-4.9); Mean Corpuscular HGB Conc 28.5 g/dl (31.0-35.0); Mean Corpuscular Hemoglobin 19.9 pg (27.0-33.0); Mean Corpuscular Volume 69.9 fL (80.0-98.0); Mean Platelet Volume 8.5 fL (9.4-12.3); Monocytes Absolute Auto 0.4 X10*3/uL (0.1-1.2); Neutrophils Absolute Auto 3.1 x10*3/uL (2.0-8.3); Neutrophils Percent Auto 57.7 % (45-73); Platelet Count 472 X10*3/uL (160-400); Red Blood Count 4.82 X10*6/uL (4.20-5.50); Red Cell Distribution Width 24.6 % (11.0-16.0); White Blood Count 5.4 X10*3/uL (4.8-10.8)
--- NOTE | 2023-12-16 07:23 | ECG_ITS ---
Test Reason : e66.01 Blood Pressure : / mmHG Vent. Rate : 082 BPM Atrial Rate : 082 BPM P-R Int : 154 ms QRS Dur : 080 ms QT Int : 358 ms P-R-T Axes : 070 057 034 degrees QTc Int : 418 ms Normal sinus rhythm Normal ECG No previous ECGs available Referred By: Alexys Lubin Electronically Signed By:AMANDA PEREZ MD
[2023-12-16 07:24] LABS: Estimated Average Glucose 114 mg/dL; Hemoglobin A1c % 5.6 % (<6.0)
[2023-12-16 08:36] LABS: Alanine Aminotransferase 15 U/L (0-31); Albumin Level 4.1 g/dL (3.5-5.0); Alkaline Phosphatase 76 U/L (39-117); Anion Gap 15 (12-20); Aspartate Amino Transferase 14 U/L (5-31); Bilirubin Total 0.3 mg/dL (0.0-1.0); Blood Urea Nitrogen 14 mg/dL (9-16); C Reactive Protein 1.85 mg/dL (< or = 0.50); Calcium 9.8 mg/dL (8.4-10.2); Carbon Dioxide 23 mmol/L (22-29); Chloride 107 mmol/L (96-108); Cholesterol 194 mg/dL (<200); Estimated Glomerular Filt Rate > 60; Glucose Random 119 mg/dL (60-115); HDL Cholesterol 59 mg/dL (>40); Iron 20 mcg/dL (30-160); LDL Cholesterol Calculated 101 mg/dL (<100); Percent Iron Saturation 5 % (15-50); Sodium 141 mmol/L (135-145); Total Iron Binding Capacity 378 mcg/dL (228-428); Total Protein 7.1 g/dL (6.5-8.0); Triglycerides 172 mg/dL (<150); Unsaturated Iron Binding 358 ug/dL
[2023-12-16 09:02] LABS: Ferritin 11 ng/mL (10-250); Insulin 20 uU/mL (2-29); TSH reflex Free T4 1.76 uIU/mL (0.32-4.0); Vitamin D 25-OH Total 23.6 ng/mL (>30)
[2023-12-16 09:05] LABS: Folate 11.4 ng/mL (> or = 4.0); Vitamin B12 > 2000 pg/mL (200-900)
[2023-12-20 16:34] LABS: Zinc 87 mcg/dL (60-130)
[2023-12-20 21:59] LABS: Vitamin A 45 mcg/dL (38-98)
[2023-12-22 15:09] LABS: Vitamin B1 10 nmol/L (8-30)
== END 2023-12-16 06:53 | disposition home or self-care (01) ==
LOC: HO.XRAY 06:52
PROVIDERS: PCP Internal Medicine; Visit Provider Surgery
DX: E66.01 Morbid (severe) obesity due to excess calories (principal); J45.909 Unspecified asthma, uncomplicated
CPT/HCPCS: 36415; 71046; 80053; 80061; 82306; 82607; 82728; 82746; 83036; 83525; 83540; 84425; 84443; 84590; 84630; 85025; 86140; 93005

== ENCOUNTER → 2023-12-16 07:23 | Outpatient (BNV) | payer MEDICARE, SELFPAY | PROVIDERS: PCP Internal Medicine; Visit Provider Internal Medicine Cardiovascular Disease | DX: E66.01 Morbid (severe) obesity due to excess calories (principal); Z01.810 Encounter for preprocedural cardiovascular examination | CPT/HCPCS: 93010 ==

== ENCOUNTER 2023-12-17 16:24 | Outpatient (AMB) | payer MEDICARE, SELFPAY ==
--- NOTE | 2023-12-17 16:08 | A.OFFWM_ITS ---
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 PFSH Medical History (Updated 12/17/23 @ 16:37 by Sheba Ortiz) DJD (degenerative joint disease) Asthma Morbid obesity Surgical History (Updated 10/11/23 @ 13:28 by Rina White CMA) History of hip replacement Hx of laparoscopic partial gastrectomy Family History (Updated 10/11/23 @ 13:36 by Rina White CMA) Mother Breast cancer Paternal Aunt Cervical cancer Breast cancer Paternal Uncle FHx: prostate cancer Social History (Updated 10/11/23 @ 13:37 by Rina White CMA) Alcohol intake: current Alcohol intake frequency: holidays/special occasions only Alcohol type: wine and hard liquor Patient Tobacco Use Status: Never used Tobacco Behavioral Health Assessment Weight Management Therapy Therapy Notes Details Patient is looking to have weight loss surgery again (2013) due to her health and quality of life concerns. She is currently not in therapy and reported being so in the past years ago. No hx of problems with drugs or alcohol and no history of inpatient psychiatric admissions. Presenting Concerns Referral Source provider Reason for referral weight loss surgery evaluation Precipitating Event obesity Living Situation Current Living Situation Own At risk of losing current housing? No Satisfied with current living situation? Yes Comments Pt lives with her sons who are 25 and 14 years old. Food/Weight/Diet Expectations of change weight loss and maintenance History/Relationship with food Pt stated that stress and anxiety causes her to eat more. Pt stated that she would often eat carbs and sugar and dealt with cravings. She was drinking soda daily, History/Relationship with weight at her heaviest she was 300lbs. History/Relationship with dieting 2013 gastric sleeve lost close to 100lbs . She then was injured and gained all that weight back. Has tried low carb since then Binge Eating Do you frequently eat large amounts of food in short periods of time, not feeling physically hungry? No Do you feel out of control when you eat a large amount of food in a short period of time? No Do you eat large amounts of food rapidly and typically alone? Yes Night Eating Do you wake up at least once during the night to eat? No If you wake up in the night, do you find that it is necessary to eat something in order to fall back asleep? No Do you have little or no appetite in the morning and feel very hungry in the evening, often overeating between dinner and when you go to bed? No Social History Family history and relationship Patient reported that she is a single mother to two boys. 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 none reported Education Highest grade completed bachelors in human services and going for masters in adjustment counseling Preferred learning style Auditory, Verbal, Written, Learn by doing and Visual Currently enrolled in educational program? No Interested in further educational program? 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 Employment Employment Status Warehouse Freight Handler Financial Situation Describe current financial situation Occasional struggle Financial assistance? None Service Service? No Mental Health and Addiction Treatment Current/Past substance abuse? No Medical and Physical Health Summary Physical exam in the last year? Yes Medications Is the patient compliant with medications? Yes Does the patient have Hernandez Guardian in place? Not applicable Does the patient use complimentary health approaches? No Trauma/Abuse History History of trauma? Yes Questionnaires PHQ-9 Over the last 2 weeks, how often have you been bothered by any of the following problems? 1. Little interest or pleasure in doing things: nearly every day 2. Feeling down, depressed, or hopeless: more than half the days 3. Trouble falling or staying asleep, or sleeping too much: more than half the days 4. Feeling tired or having little energy: more than half the days 5. Poor appetite or overeating: not at all 6. Feeling bad about yourself - or that you are a failure or have let yourself or your family down: several days 7. Trouble concentrating on things, such as reading the newspaper or watching television: more than half the days 8. Moving or speaking so slowly that other people could have noticed. Or the opposite - being so fidgety or restless that you have been moving around a lot more than usual: not at all 9. Thoughts that you would be better off or of hurting yourself in some way: not at all Total score: 12 Depression Screening Interpretation: Positive Depression Screening Done: Yes Source: Developed by Drs. Arturo LRuth Cordero Kurt Kroenke and colleagues, with an educational nitin from [employer]. Binge Eating Scale Group 1 A. I don't feel self-conscious about my wt. or body size when I'm with others. B. I feel concerned about how I look to others, but it normally does not make me fell disappointed with myself C. I do get self-conscious about my appearance and wt. which makes me feel disappointed in myself. D. I feel very self-conscious about my wt. and frequently I feel intense shame and disgust for myself. I try to avoid social contacts because of my self- consciousness. Response Group 1: C Group 2 A. I don't have any difficulty eating slowly in the proper manner. B. Although I seem to gobble down foods, I don't end up feeling stuffed because of eating to much. C. At times, I tend to eat quickly and then, I feel uncomfortably full afterwards. D. I have the habit of bolting down my food, without really chewing it. When this happens I usually feel uncomfortably stuffed because I've eaten to much. Response Group 2: C Group 3 A. I feel capable to control my eating urges when I want to. B. I feel like I have failed to control my eating more than the average person. C. I feel utterly helpless when it comes to feeling in control of my eating urges. D. Because I feel so helpless about controlling my eating I have become very desperate about trying to get control. Response Group 3: C Group 4 A. I don't have the habit of eating when I'm bored. B. I sometimes eat when I'm bored, but often I'm able to get busy and get my mind off food. C. I have a regular habit of eating when I'm bored, but occasionally, I can use some other activity to get my mind off eating. D. I have a strong habit of eating when I'm bored. Nothing seems to help me breath the habit. Response Group 4: C Group 5 A. I'm usually physically hungry when I eat something. B. Occasionally, I eat something on impulse even though I really am not hungry. C. I have the regular habit of eating foods, that I might not really enjoy, to satisfy a hungry feeling even though physically, I don't need the food. D. Although I'm not physically hungry, I get a hungry feeling in my mouth that only seems to be satisfied when I eat a food, like sandwich, that fills my mouth. Sometimes, when I eat the food to satisfy my mouth hunger, I then spit the food out so I won't gain weight. Response Group 5: B Group 6 A. I don't feel any guilt or self-hate after I overeat. B. After I overeat, occasionally I feel guilt or self-hate. C. Almost all the time I experience strong guilt or self-hate after I overeat. Response Group 6: B Group 7 A. I don't lose total control of my eating when dieting even after periods when I overeat. B. Sometimes when I eat a forbidden food on a diet, I feel like I blew it and eat even more. C. Frequently, I have the habit of saying to myself, I've blown it now, why not go all the way, when I overeat on a diet. When that happens I eat more. D. I have a regular habit of starting a strict diets for myself but I break the diets by going on an eating binge. My life seems to be either a feast or famine. Response Group 7: D Group 8 A. I rarely eat so much food that I feel uncomfortably stuffed afterwards. B. Usually about once a month, I each such a quantity of food, I end up feeling very stuffed. C. I have regular periods during the month when I eat large amounts of food, either at mealtime or at snacks. D. I eat so much food that I regularly feel quite uncomfortable after eating and sometimes a bit nauseous. Response Group 8: C Group 9 A. My level of calorie intake does not go up very high or go down very low on a regular basis. B. Sometimes after I overeat, I will try to reduce my caloric intake to almost nothing to compensate for the excess calories I've eaten. C. I have a regular habit of overeating during the night. It seems that my routine is not to be hungry in the morning but overeat in the evening. D. In my adult years, I have had week-long periods where I practically starve myself. This follows periods when I overeat. It seems I live a life of either feast or famine. Response Group 9: C Group 10 A. I usually am able to stop eating when I want to. I know when enough is enough. B. Every so often, I experience a compulsion to eat which I can't seem to control. C. Frequently, I experience strong urges to eat which I seem unable to control, but at other times I can control my eating urges. D. I feel incapable of controlling urges to eat. I have a fear of not being able to stop eating voluntarily. Response Group 10: A Group 11 A. I don't have any problem stopping eating when I feel full. B. I usually can stop eating when I feel full but occasionally overeat leaving me feeling uncomfortably stuffed. C. I have a problem stopping eating once I start and usually I feel uncomfortably stuffed after I eat a meal. D. Because I have a problem not being able to stop eating when I want, I sometimes have to induce vomiting to relieve my stuffed feeling. Response Group 11: A Group 12 A. I seem to eat just as much when I'm with others, Family social gatherings as when I'm by myself. B. Sometimes, when I'm with other persons, I don't eat as much as I want to eat because I'm self-conscious about my eating. C. Frequently, I eat only a small amount of food when others are present, because I'm very embarrassed about my eating. D. I feel so ashamed about overeating that I pick times to overeat when I know no one will see me. I feel like a closet eater. Response Group 12: A Group 13 A. I eat three meals a day with only an occasional between meal snack. B. I eat 3 meals a day, but I also normally snack between meals. C. When I am snacking heavily, I get in the habit of skipping regular meals. D. There are regular periods when I seem to be continually eating, with no planned meals. Response Group 13: C Group 14 A. I don't think much about trying to control unwanted eating urges. B. At least some of the time, I feel my thoughts are pre-occupied with trying to control my eating urges. C. I feel that frequently I spend much time thinking about how much I ate or about trying not to eat anymore. D. It seems to me that most of my waking hours are pre-occupied by thoughts about eating or not eating. I feel like I'm constantly struggling not to eat. Response Group 14: B Group 15 A. I don't think about food a great deal. B. I have strong craving for food but they last only for brief periods of time. C. I have days when I can't seem to think about anything else but food. D. Most of my days seem to be pre-occupied with thoughts about food. I feel like I live to eat. Response Group 15: B Group 16 A. I usually know whether or not I'm physically hungry. I take the right portion of food to satisfy me. B. Occasionally, I feel uncertain about knowing whether or not I'm physically hungry. A these times it's hard to know how much food I should take to satisfy me. C. Even though I might know how many calories I should eat, I don't have any idea what is a normal amount of food for me. Response Group 16: A Binge Eating Score: 21 Score less than 17 Minimal Risk Score between 18-26 Moderate Risk Score between 27-46 High Risk Assessment & Plan Assessment & Plan (1) Adjustment disorder with depressed mood: Code(s): F43.21 - Adjustment disorder with depressed mood (2) Morbid obesity: Code(s): E66.01 - Morbid (severe) obesity due to excess calories Plan Patient will be seen again in office. Telehealth Telehealth Telehealth Platform: Telephone Location of provider rendering services: other Location of patient: address on file Patient Identification confirmed using: Name, : Yes Telehealth method: voice only Patient verbally consented to treatment: Yes Patient verbally consented to billing insurance company: Yes Patient informed of any privacy concerns related to visit: Yes Minutes spent on Phone/Video with Pt.: 45 Coding Level of Care Code Tele Psy Diag Eval (26060) Diagnoses Adjustment disorder with depressed mood F43.21 Morbid obesity E66.01 Time Spent (min) 45
== END 2023-12-17 16:37 | disposition home or self-care (01) ==
LOC: HO.HBST 16:24
PROVIDERS: PCP Internal Medicine; Visit Provider Counselor Mental Health
DX: F43.21 Adjustment disorder with depressed mood (principal); E66.01 Morbid (severe) obesity due to excess calories
CPT/HCPCS: 90791

== ENCOUNTER → 2023-12-17 16:24 | Outpatient (BNVA) | payer MEDICARE, SELFPAY | PROVIDERS: PCP Internal Medicine; Visit Provider Counselor Mental Health ==

== ENCOUNTER 2023-12-23 08:01 | Outpatient (REF) | payer MEDICARE, SELFPAY ==
--- NOTE | ~2023-12-23 | FL_ITS ---
EXAMINATION: XR FLUOROSCOPY UPPER GI WITH AIR CLINICAL INFORMATION: Preop evaluation prior to bariatric surgery. History of sleeve gastrectomy. COMPARISON: None TECHNIQUE: Fluoroscopic air contrast upper GI examination was performed utilizing standard techniques with thin and thick barium and effervescent granules. Numerous spot images were obtained. FINDINGS: Dual and single contrast images of the esophagus demonstrate normal caliber, contour, and mucosal pattern. Mild cricopharyngeal achalasia is present. No evidence of stricture or mass identified. In the distal one third lateral esophagus, there is a region of irregular contrast coating and persistence, which may reflect a subtle superficial ulceration or focal esophagitis (RF 1-10, image 67). This appears to persist especially on the prone portions of the exam. Esophageal peristalsis was normal. No evidence of hiatus hernia identified. No significant gastroesophageal reflux was seen during the course of the examination and on reflux views. Dual contrast and single contrast images of the stomach demonstrated expected contour consistent with prior history of sleeve gastrectomy. No masses or ulcerations are noted. Contrast freely passed into the gastric antrum and duodenal bulb without delay. Single and air-contrast images of the duodenal bulb demonstrate no abnormality. The duodenal sweep demonstrates mildly thickened folds, as well as the proximal jejunum. A proximal enteritis is a possibility. No malrotation. FLUOROSCOPY TIME: 3 minutes 8 seconds Number of Spot Images: 9 Number of Cine: 9 DOSE AREA PRODUCT: 2718 uGy-m2 (microgray-meter squared) FL/FL upper GI w air IMPRESSION: 1. Mild cricopharyngeal achalasia. 2. Status post sleeve gastrectomy. 3. Focus of mucosal irregularity in the lateral distal one third of the esophagus, possibly small superficial ulceration or focal region of erosive esophagitis. Cannot definitively exclude Jama's change. 4. Apparent fold thickening of the duodenum and proximal jejunum. Cannot exclude a proximal enteritis versus malabsorption state. Consider correlating with EGD. This procedure was performed by Rajeev Rondon PA-C, and supervised by Dr. Robledo
== END 2023-12-23 08:02 | disposition home or self-care (01) ==
LOC: HO.XRAY 08:01
PROVIDERS: Visit Provider Surgery
DX: E66.01 Morbid (severe) obesity due to excess calories (principal); J45.909 Unspecified asthma, uncomplicated
CPT/HCPCS: 74246

== ENCOUNTER → 2023-12-23 08:02 | Outpatient (BNV) | payer MEDICARE, SELFPAY | PROVIDERS: Visit Provider Physician Assistant Surgical | DX: Z01.818 Encounter for other preprocedural examination (principal) | CPT/HCPCS: 74246 ==

== ENCOUNTER → 2024-01-08 15:24 | Outpatient (BNVA) | payer MEDICARE, SELFPAY | PROVIDERS: PCP Internal Medicine; Visit Provider Counselor Mental Health ==

== ENCOUNTER 2024-01-14 08:10 | Outpatient (REF) | payer MEDICAID, SELFPAY ==
--- NOTE | ~2024-01-14 | US_ITS ---
EXAMINATION: US COMPLETE ABDOMEN WITH LIVER ELASTOGRAPHY CLINICAL INFORMATION: Obesity. COMPARISON: None available. TECHNIQUE: Real-time imaging of the abdominal viscera. Noninvasive ultrasound liver fibrosis assessment is performed using Chris ElastPQ point quantification shear wave elastography (2D-SWE) with a C5-2 MHz transducer. Multiple elastography samples are obtained. FINDINGS: PANCREAS: The visualized pancreatic head and body are normal in appearance. The remainder of the pancreas is obscured from visualization by the overlying bowel gas. ABDOMINAL AORTA: The proximal, middle, and distal aortic segments are normal in caliber. INFERIOR VENA CAVA: Visualized portions are normal. LIVER: The liver is enlarged with increased echogenicity. No focal lesion or intrahepatic biliary duct dilatation. The right lobe measures 19.7 cm in length. The left lobe measures 13.7 cm in length. Portal flow is towards the liver (hepatopetal). Shear wave liver elastography median stiffness is 1.46 m/s (reference: normal median stiffness is 1.3 m/s or less). IQR/median stiffness to assess sampling precision is 0.10 (reference: good quality data set is IQR/median stiffness of 0.15 or less). GALLBLADDER: . The gallbladder is physiologically distended without evidence of stones, sludge, polyps, wall thickening or pericholecystic fluid. COMMON BILE DUCT: Normal in caliber measuring 0.2 cm in diameter. RIGHT KIDNEY: Normal. No hydronephrosis. No renal calculi or focal parenchymal lesions. The kidney measures 11.8 cm in maximum dimension. LEFT KIDNEY: Normal. No hydronephrosis. No renal calculi or focal parenchymal lesions. The kidney measures 11.8 cm in maximum dimension. SPLEEN: Normal. The spleen measures 10.3 cm in maximum dimension. FREE FLUID: None. US/US abdomen comp w elastography IMPRESSION: 1. Enlarged fatty liver. 2. Liver Elastography: In the absence of other known clinical signs, measurements rule out compensated advanced chronic liver disease. If there are known clinical signs, further testing may be needed for confirmation. REFERENCE: Society of Radiologists in Ultrasound Liver Stiffness Thresholds (2019): LIVER STIFFNESS THRESHOLDS: *Liver Stiffness equal or less than 1.3 m/s: High probability of being normal. *Liver Stiffness less than 1.7 m/s: In the absence of other known clinical signs, rules out compensated advanced chronic liver disease. *Liver Stiffness 1.7-2.1 m/s: Suggestive of compensated advanced chronic liver disease but need further test for confirmation. *Liver Stiffness over 2.1 m/s: Rules in compensated advanced chronic liver disease. *Liver Stiffness over 2.4 m/s: Suggestive of clinically significant portal hypertension. QUALITY OF DATA SET: *IQR/Median value equal or less than 0.15 implies a quality data set. *IQR/Median value over 0.15 implies a poor quality data set. SIGNIFICANT CHANGE FROM PRIOR EXAM: Significant change if liver stiffness measurement is 10% or greater from prior exam. OTHER CONSIDERATIONS: The stage of liver fibrosis may be overestimated in the setting of acute hepatitis, liver inflammation, elevated liver function tests, hepatic vascular congestion, obstructive cholestasis, non-fasting state, and infiltrative diseases such as amyloidosis and lymphoma. In some patients with NAFLD, the liver stiffness thresholds for compensated advanced chronic liver disease may be lower. In causes other than viral hepatitis and NAFLD, liver stiffness thresholds are not well established.
== END 2024-01-14 08:11 | disposition home or self-care (01) ==
LOC: HO.US 08:10
PROVIDERS: PCP Internal Medicine; Visit Provider Surgery
DX: E66.01 Morbid (severe) obesity due to excess calories (principal); J45.909 Unspecified asthma, uncomplicated
CPT/HCPCS: 76700; 76981

== ENCOUNTER 2024-01-15 10:35 | Day surgery (SDC) | payer MEDICAID, SELFPAY ==
[2024-01-15 11:04] VITALS: BMI 43.3
[2024-01-15 11:24] LABS: UPreg QC Valid YES; Urine Pregnancy NEGATIVE (NEGATIVE)
[2024-01-15 11:44] VITALS: BP 128/87; PULSE 76; RESP 16; TEMP 36.4; O2SAT 97
[2024-01-15] MEDS: Lactated Ringers 1,000 ML 80 ML IVCONT (11:51)
--- NOTE | 2024-01-15 12:42 | MHC.SHP ---
Pre-Procedural Eval Section A - 24 Hr Update-Section A only Date of Service: 01/15/24 The patient is an INPATIENT: No The patient has been examined within 24 hours of the surgical procedure. The History & Physical has been completed within 30 days and I have reviewed it.: Yes Section B - Complete if H&P > 30 days Chief Complaint: Bariatric surgery status Details of Present Illness: Anemia Relevant Family History (Specify if Yes): No Relevant Social History: None Present Medications: None Medical History: No relevant PMH History of Previous Operations: Relevant previous surgery/procedure and date(s) (Laparoscopic sleeve gastrectomy) Allergies: Allergies Allergy/AdvReac Type Severity Reaction Status Date / Time fluticasone Allergy Severe Chest Pain Verified 01/15/24 11:03 [From Flovent HFA] tree nut Allergy Severe Anaphylaxis Verified 01/15/24 11:03 Review of Systems Sugical H&P ROS: Negative: Constitution, Cardiovascular, Respiratory, Neurological, Psychiatric, Hem-Onc, Allergic/Immunologic, Gastrointestinal, Genitourinary, Musculoskeletal, Integumentary, Endocrine and Eyes/Ears/Nose/Throat Exam Surgical H&P Exam: Normal: HEENT, Normal: Heart, Normal: Lungs, Normal: Extremities, Normal: Abdomen, Normal: Skin and Normal: Neurological Plan Diagnosis/Plan: Unchanged (EGD to assess the anatomy of her sleeve gastrectomy. Risks of bleeding and perforation were discussed with the patient and she is in agreement with the plan.) I have reviewed the history and physical and performed a pertinent physical examination on my patient. No changes have occurred unless specified. Time Spent With Patient Time: Total time managing care of this patient today ____ minutes.
--- NOTE | 2024-01-15 12:45 | HO.ANESPROP2 ---
Documented by User: Luh Barrera MD 01/15/24 13:38 HPI - Anesthesia Eval Consult details Narrative: 43 yo female patient for EGD PMFSH Active Problems Active Problems: All Active Problems Adjustment disorder with depressed mood (Acute) DJD (degenerative joint disease) (Acute) Asthma (Acute) Morbid obesity (Acute) Past Medical History Medical History (Updated 12/17/23 @ 16:37 by Sheba Ortiz) DJD (degenerative joint disease) Asthma Morbid obesity Family History Family History (Updated 10/11/23 @ 13:36 by Rina White CMA) Mother Breast cancer Paternal Aunt Cervical cancer Breast cancer Paternal Uncle FHx: prostate cancer Surgical History Surgical History History of hip replacement Hx of laparoscopic partial gastrectomy Social History Social History (Updated 10/11/23 @ 13:37 by Rina White CMA) Alcohol intake: current Alcohol intake frequency: holidays/special occasions only Alcohol type: wine and hard liquor Patient Tobacco Use Status: Never used Tobacco Meds Allergies Allergy/AdvReac Type Severity Reaction Status Date / Time fluticasone Allergy Severe Chest Pain Verified 01/15/24 11:03 [From Flovent HFA] tree nut Allergy Severe Anaphylaxis Verified 01/15/24 11:03 Active Medications: Current Medications Lactated Ringer's (Lr) 1,000 mls @ 80 mls/hr IVCONT .[id number] RONAK Last Admin: 01/15/24 11:51 Dose: 80 mls/hr Home Medications ?Medication ?Instructions ?Recorded ?Confirmed ?Last Taken ?Type albuterol sulfate 90 mcg/actuation 2 puff inhalation Q6H PRN sob 11/29/23 01/15/24 Unknown History aerosol inhaler ascorbic acid (vitamin C) 500 mg mg PO 11/29/23 11/29/23 Unknown History capsule cholecalciferol (vitamin D3) 50 50 mcg PO DAILY 11/29/23 01/15/24 Unknown History mcg (2,000 unit) capsule ferrous sulfate 325 mg (65 mg 325 mg PO DAILY 11/29/23 01/15/24 Unknown History iron) tablet (Feosol) fluticasone furoate 100 1 inh inhalation Q24H 11/29/23 01/15/24 Unknown History mcg-vilanterol 25 mcg/dose inhalation powder (Breo Ellipta) Exam Height,Weight and Vital Signs: Height 5 ft 4 in Weight 114.305 kg Last Vital Signs Temp 97.6 F 01/15/24 11:44 Pulse 76 01/15/24 11:44 Resp 16 01/15/24 11:44 BP 128/87 01/15/24 11:44 Pulse Ox 97 01/15/24 11:44 O2 Del Method Room Air 01/15/24 11:44 Pertinent Lab Results Pertinent Lab Results: Laboratory Tests 01/15/24 11:08 Urine Test NEGATIVE Documented by User: Megan Almaguer DO 01/15/24 12:49 PMFSH Past Medical History Medical History (Updated 12/17/23 @ 16:37 by Sheba Ortiz) DJD (degenerative joint disease) Asthma Morbid obesity Family History Family History (Updated 10/11/23 @ 13:36 by Rina White CMA) Mother Breast cancer Paternal Aunt Cervical cancer Breast cancer Paternal Uncle FHx: prostate cancer Family history of problems with anesthesia: No Surgical History Surgical History History of hip replacement Hx of laparoscopic partial gastrectomy History of Problems with Anesthesia: No Social History Social History (Updated 10/11/23 @ 13:37 by Rina White CMA) Alcohol intake: current Alcohol intake frequency: holidays/special occasions only Alcohol type: wine and hard liquor Patient Tobacco Use Status: Never used Tobacco Meds Allergies Allergy/AdvReac Type Severity Reaction Status Date / Time fluticasone Allergy Severe Chest Pain Verified 01/15/24 11:03 [From Flovent HFA] tree nut Allergy Severe Anaphylaxis Verified 01/15/24 11:03 Home Medications ?Medication ?Instructions ?Recorded ?Confirmed ?Last Taken ?Type albuterol sulfate 90 mcg/actuation 2 puff inhalation Q6H PRN sob 11/29/23 01/15/24 Unknown History aerosol inhaler ascorbic acid (vitamin C) 500 mg mg PO 11/29/23 11/29/23 Unknown History capsule cholecalciferol (vitamin D3) 50 50 mcg PO DAILY 11/29/23 01/15/24 Unknown History mcg (2,000 unit) capsule ferrous sulfate 325 mg (65 mg 325 mg PO DAILY 11/29/23 01/15/24 Unknown History iron) tablet (Feosol) fluticasone furoate 100 1 inh inhalation Q24H 11/29/23 01/15/24 Unknown History mcg-vilanterol 25 mcg/dose inhalation powder (Breo Ellipta) Exam Exam Date and Time: January 15, 2024 1247 Airway Mallampati Class: II TM Dist: >3cm Neck ROM: Full Loose/Missing/Broken Teeth: No (patient denies any loose or broken teeth) Heart: S1S2 Lungs: CTAB Assessment and Plan Assessment Anesthesia Assessment: Anesthesia Plan Discussed and Chart Reviewed Final Anesthetic Review Family History of Problems with Anesthesia: No History of Problems with Anesthesia: No NPO: Yes ASA Class: III Final Preanesthetic Review: No Changes in Pt Med Stat, Meds/Allgs Chart Reviewed, Consent Obtained/Reviewed and Anes Risks/Benef Reviewed Patient Risk: Intermediate Procedure Risk: Low Anesthetic Plan Anesthetic Plan: MAC: and Agree w/ Assess. and Plan Disposition: Standard PACU
--- NOTE | 2024-01-15 12:49 | PM.OP ---
Brief Operative Note Date of Service: 01/15/24 Pre-op diagnosis: Anemia Post-op diagnosis: same Procedure: PROCEDURE DATE: 01/15/2024 PREOPERATIVE DIAGNOSIS: Anemia, s/p sleeve gastrectomy POSTOPERATIVE DIAGNOSIS: ?Same as above. 1) redundant proximal sleeve PROCEDURE: Hiidgcyd-plfxkh-upvxdjrhovdo with biopsies Surgeon: ?En Lubin M.D.. Ph.D. Director Of Automation: None ? Anesthesia: IV sedation Estimated blood loss: ?Minimal FINDINGS AND PROCEDURE: ? OPERATIVE INDICATIONS: ?The patient is a 43 year old female known to me who underwent a laparoscopic sleeve gastrectomy at [facility]. The patient had inadequate weight loss so far and had a completely uneventful recovery.? The patient has anemia. Based on this information I recommended an upper endoscopy to evaluate the patient's symptoms. Risks and complications of the surgery were discussed with the patient in advance particularly the possibility of perforation or bleeding that may require surgical intervention. The patient understood the risks and was in agreement with the plan. ? PROCEDURE: After informed consent was obtained by the patient, the patient was ?transferred to the Operating Room and was placed in the supine position.? After successful induction of IV sedation, a mouth block was inserted and the patient was placed in the left lateral decubitus position. An upper endoscopy was performed next, the oropharynx and esophagus appeared within the normal limits. There was a no hiatal hernia. The z-line was smooth. Two biopsies were obtained from the distal esophagus 2-3 cm proximal to the GE junction and two additional biopsies from the GE junction. The sleeve was entered. The caliber of the sleeve was larger than it should and even more so the proximal aspect of the sleeve that was even more redundant.. There was no gastritis. There was no stricture or ulcer. Biopsies were obtained from the proximal sleeve as well as the antrum. No significant bleeding was noted from any of the biopsy sites. The scope was then advanced into the duodenum which appeared to be normal as well. At that point the duodenum ?and the sleeve were decompressed and the scope was withdrawn from the patient's mouth. The patient extubated and was transferred in stable condition to the Recovery Room for further care. I was present and performed all steps of the procedure. There were no residents to assist with this case. En Lubin M.D., Ph.D. Surgeon: Alexys Lubin MD Anesthesia: MAC Was an Director Of Automation used for this Procedure?: No Estimated blood loss (mL): 0 IV fluids (mL): 400 Urine output (mL): 0 (No Ferguson to record output) Pathology: other (1) antrum x1, 2) proximal sleeve/gastric fundus x1, 3) EGJ x2, 4) distal esophagus x2) Condition: stable Disposition: PACU
[2024-01-15 13:27] VITALS: BP 105/65; PULSE 79; RESP 24; TEMP 36.1; O2SAT 95
[2024-01-15 13:42] VITALS: BP 124/74; PULSE 75; RESP 18; TEMP 36.1; O2SAT 98
== END 2024-01-15 14:03 | disposition home or self-care (01) ==
PROVIDERS: Anesthesiology; PCP Internal Medicine; Visit Provider Surgery
PROC: 0DJ08ZZ Inspection of Upper Intestinal Tract, Via Natural or Artificial Opening Endoscopic (ICD-10-PCS; CPT 43235; principal; 2024-01-15 12:30)
DX: D64.9 Anemia, unspecified (principal); Z98.84 Bariatric surgery status; E66.01 Morbid (severe) obesity due to excess calories; Z68.41 Body mass index [BMI] 40.0-44.9, adult; J45.909 Unspecified asthma, uncomplicated; M19.90 Unspecified osteoarthritis, unspecified site; Z79.51 Long term (current) use of inhaled steroids; Z79.899 Other long term (current) drug therapy; Z88.8 Allergy status to other drugs, medicaments and biological substances
CPT/HCPCS: 43239; 81025; 88305; 88313; 88342; J2704

== ENCOUNTER → 2024-01-15 10:35 | Outpatient (BNV) | payer MEDICAID, SELFPAY | PROVIDERS: PCP Internal Medicine; Visit Provider Surgery | DX: D64.9 Anemia, unspecified (principal); K95.89 Other complications of other bariatric procedure | CPT/HCPCS: 43239 ==